=== PATIENT | female | born 1985 | race Caucasian/White ===

== ENCOUNTER 2019-05-03 08:07 | Emergency (ER) | payer OTHER ==
[2019-05-03] MEDS ORDERED: MORPHINE SULFATE 4 MG/ML SYRINGE IVP STA (08:56)
[2019-05-03] MEDS ORDERED: ONDANSETRON 4 MG/2 ML VIAL IVP STA (08:57)
[2019-05-03 09:12] LABS: Basophils # (A) 0.1 k/uL (0-0.2); Basophils % (A) 0 %; Eosinophils # (A) 0.5 k/uL (0-0.7); Eosinophils % (A) 4 %; HCT 43.3 % (34.0-46.0); HGB 14.7 gm/dL (11.4-16.0); Lymphocytes % (A) 13 %; MCH 29.1 pg (25.0-35.0); MCV 85.7 fL (80.0-100.0); Mean Platelet Volume 5.4; Monocytes # (A) 0.5 k/uL (0-1.0); Monocytes % (A) 3 %; Neutrophils # (A) 11.5 k/uL (1.3-7.7); Neutrophils % (A) 79 %; Platelet Count 374 k/uL (150-450); RBC 5.05 m/uL (3.80-5.40); RDW 12.9 % (11.5-15.5); WBC 14.6 k/uL (3.8-10.6)
[2019-05-03 09:20] LABS: ALT 31 U/L (9-52); AST 23 U/L (14-36); African American GFR (CKD) >90 (>60 ml/min/1.73 sqM); Albumin 4.4 g/dL (3.5-5.0); Alkaline Phosphatase 102 U/L (38-126); Amylase <30 U/L (30-110); Anion Gap 8 mmol/L; Blood Urea Nitrogen 15 mg/dL (7-17); Calcium 9.6 mg/dL (8.4-10.2); Carbon Dioxide 28 mmol/L (22-30); Chloride 104 mmol/L (98-107); Glucose 114 mg/dL (74-99); Non-African American GFR(CKD) >90 (>60 ml/min/1.73 sqM); Potassium 3.9 mmol/L (3.5-5.1); Sodium 140 mmol/L (137-145); Total Bilirubin 0.4 mg/dL (0.2-1.3); Total Protein 7.7 g/dL (6.3-8.2)
[2019-05-03 09:42] LABS: Appearance,Urine Cloudy (Clear); Bilirubin,Urine Negative (Negative); Blood,Urine Small (Negative); Color,Urine Yellow; Glucose,Urine (UA) Negative (Negative); Ketones,Urine Negative (Negative); Leukocyte Esterase,Urine Large (Negative); Nitrite,Urine Negative (Negative); Protein,Urine 1+ (Negative); Urobilinogen,Urine <2.0 mg/dL (<2.0)
[2019-05-03 09:53] LABS: RBC,Urine 3 /hpf (0-5); Squamous Epithelial Cell,Urine 1 /hpf (0-4)
[2019-05-03 09:54] LABS: Bacteria,Urine Few /hpf
[2019-05-03 10:05] LABS: Glucose,Whole Blood 112 mg/dL (75-99)
[2019-05-03] MEDS ORDERED: cefTRIAXone IN SWFI 1,000 MG/10 ML SYRINGE IVP STA (10:10)
--- NOTE | 2019-05-03 10:21 | US ---
EXAMINATION TYPE: US transvaginal DATE OF EXAM: 05/03/2019 COMPARISON: NONE CLINICAL HISTORY: hx PCOS, pelvic pain 1 hr prior to arrival.. Patient has PCOS TECHNIQUE: Transvaginal (TV). Date of LMP: 5 months prior EXAM MEASUREMENTS: Uterus: 8.0 x 3.7 x3.9 cm Endometrial Stripe: 0.5 cm Right Ovary: not visualized cm Left Ovary: 2.5 x 1.8 x 1.8 cm Morbidly obese patient. 1. Uterus: Anteverted no significant abnormality 2. Endometrium: wnl 3. Right Ovary: not visualized due to obesity and overlying bowel gas 4. Left Ovary: wnl Spectral, color and waveform doppler imaging shows arterial and venous flow within the left ovary; color flow, vascular waveforms are present. 5. Bilateral Adnexa: hypoechoic irregular shaped area in right adnexa that does not appear to be and ovary, possible bowel? 6. Posterior cul-de-sac: wnl IMPRESSION: Exam is limited. No significant abnormality
--- NOTE | 2019-05-03 11:10 | CT ---
EXAMINATION TYPE: CT abdomen pelvis w con DATE OF EXAM: 05/03/2019 HISTORY: Pelvic pain with nausea CT DLP: 2900mGycm Automated Exposure Control for Dose Reduction was Utilized. CONTRAST: CT scan of the abdomen and pelvis is performed with IV Contrast, patient injected with 100 mL of Isov ue 300. COMPARISON: Pelvic ultrasound of the same date. CT abdomen pelvis dated 08/07/2015 FINDINGS: LUNG BASES: There is a stable 4 mm solid pulmonary nodule in the right middle lobe in comparison to e xam of 2016, likely benign. Minimal subsegmental atelectasis.. LIVER/GB: Diffusely slight hypoattenuated appearance however the liver does not meet criteria for hep atic steatosis at this time. Gallbladder surgically absent. PANCREAS: No significant abnormality is seen. SPLEEN: No significant abnormality is seen. ADRENALS: No significant abnormality is seen. KIDNEYS: Punctate 1 to 2 mm nonobstructing left lower pole renal calculus and 3 mm right midpole nono bstructing calculus. No hydronephrosis of either kidney.. BOWEL: Gastric fundal diverticulum is incidentally seen. Appendix is not clearly identified however n o focal right lower quadrant fat stranding changes are seen. UTERUS/ADNEXA: Trace amount of free fluid in the posterior cul-de-sac, likely physiologic in nature. Follicular changes of the ovaries. LYMPH NODES: No greater than 1cm abdominal or pelvic lymph nodes are appreciated. Few surgical clips in the central mesentery. OSSEOUS STRUCTURES: No significant abnormality is seen. OTHER: Diastases recti is seen. IMPRESSION: 1. No significant acute finding is seen to account for patient's clinical symptoms. 2. Bilateral punctate nonobstructing renal calculi
--- NOTE | 2019-05-03 11:32 | ED ---
Abdominal Pain HPI - General Chief Complaint: Abdominal Pain Stated Complaint: Stomach pain Time Seen by Provider: 05/03/19 08:22 Source: patient Mode of arrival: ambulatory Limitations: no limitations - History of Present Illness Initial Comments: 33-year-old female history of kidney stones and polycystic ovarian disease presents emergency department for chief complaint of diffuse lower abdominal tenderness beginning 1 hour prior to presentation. Patient states one hour prior to presentation she began having crampy abdominal pain in the midline pel maged region. Patient states she does have history of kidney stones however this does not feel similar. She states is usually one side or the other and in the back. Patient denies any unilateral pain she states is diffuse over the lower pelvic region. She denies any diffuse vaginal discharge vaginal orders concern for sexual transmitted diseases or vaginal bleeding. Patient states she is currently trying to get however she has not had a positive test and years she states that she has issues with infertility secondary to her polycystic ovarian disease. Patient denies any fevers diarrhea or vomiting. Denies dysuria urgency frequency. Patient states she does have slight nausea. Patient denies any chest pain shortness of breath or any other complaints. Remaining review systems negative. Upon arrival patient appears nontoxic. - Related Data Home Medications Medication Instructions Recorded Confirmed Pnv,Calcium 72/Iron/Folic Acid 1 tab PO DAILY 10/28/14 05/03/19 [ Plus Tablet] metFORMIN HCL [Glucophage] 500 mg PO BID 07/29/15 05/03/19 Magnesium Gluconate [Magonate] 500 mg PO BID 05/03/19 05/03/19 Vitamin Adk 1 tab PO DAILY 05/03/19 05/03/19 Vitamin B Complex 1 cap PO DAILY 05/03/19 05/03/19 Previous Rx's Medication Instructions Recorded Cephalexin [Keflex] 500 mg PO Q12HR 5 Days #10 cap 05/03/19 Allergies Allergy/AdvReac Type Severity Reaction Status Date / Time No Known Allergies Allergy Verified 05/03/19 09:46 Review of Systems ROS Statement: Those systems with pertinent positive or pertinent negative responses have been documented in the HPI. ROS Other: All systems not noted in ROS Statement are negative. Past Medical History Past Medical History: Asthma, GERD/Reflux, Hypertension Additional Past Medical History / Comment(s): pcos, HTN during History of Any Multi-Drug Resistant Organisms: None Reported Past Surgical History: Appendectomy, Section, Cholecystectomy Past Anesthesia/Blood Transfusion Reactions: No Reported Reaction Past Psychological History: No Psychological Hx Reported Smoking Status: Never smoker Past Alcohol Use History: None Reported Past Drug Use History: None Reported - Past Family History Mother Family Medical History: Seizure Disorder Additional Family Medical History / Comment(s): Grand Mal Seizures, well controlled Father Family Medical History: Diabetes Mellitus, Hyperlipidemia General Exam - General Exam Comments Initial Comments: General: The patient is awake and alert, in no distress Eye: +3 mm pupils are equal, round and reactive to light, extra-ocular movements are intact. No nystagmus. There is normal conjunctiva bilaterally. No signs of icterus. Ears, nose, mouth and throat: There are moist mucous membranes and no oral lesions. Neck: The neck is supple, there is no tenderness or JVD. Cardiovascular: There is a regular rate and rhythm. No murmur, rub or gallop is appreciated. Respiratory: Lungs are clear to auscultation, respirations are non-labored, breath sounds are equal. No wheezes, stridor, rales, or rhonchi. Gastrointestinal: Soft, non-distended, diffuse tenderness that appears mild to the lower pelvic region, no unilateral pain the remaining abdomen is= without masses or organomegaly noted. There is no rebound or guarding present. No CVA tenderness. Bowel sounds are unremarkable. No cervical motion tenderness, scant amount of discharge, os closed. No blood. Mild left sided adnexal tenderness, no right adnexal tenderness. Cervical lesions apprecited. red. Musculoskeletal: Normal ROM, no tenderness. Strength 5/5. Sensation intact. Pulses equal bilaterally 2+. Neurological: A&O x 3. CN II-XII intact grossly, There are no obvious motor or sensory deficits. Coordination appears grossly intact. Speech is normal. Skin: Skin is warm and dry and no rashes or lesions are noted. No LE edema. Psychiatric: Cooperative, appropriate mood & affect, normal judgment. Limitations: no limitations Course Vital Signs 05/03/19 05/03/19 05/03/19 08:16 10:00 10:02 Temperature 97.9 F Pulse Rate 109 H 51 L 55 L Pulse Rate [ Sitting] Pulse Rate [ Standing] Pulse Rate [ Supine] Respiratory 18 18 18 Rate Blood Pressure 164/114 91/59 96/54 Blood Pressure [Right Arm Sitting] Blood Pressure [Right Arm Standing] Blood Pressure [Right Arm Supine] O2 Sat by Pulse 987 H 95 Oximetry 05/03/19 05/03/19 05/03/19 10:05 11:33 12:17 Temperature 98.2 F Pulse Rate 81 94 Pulse Rate [ 100 Sitting] Pulse Rate [ 107 H Standing] Pulse Rate [ 97 Supine] Respiratory 18 18 16 Rate Blood Pressure 136/87 127/99 Blood Pressure 155/105 [Right Arm Sitting] Blood Pressure 166/103 [Right Arm Standing] Blood Pressure 146/99 [Right Arm Supine] O2 Sat by Pulse 98 97 96 Oximetry Medical Decision Making - Medical Decision Making 33-year-old female presented for lower pelvic pain. Minimal pain on pelvic examination mild left adnexal tenderness. Ultrasound revealed normal left ovary. Minimal dental visualization of the right. CT was obtained at this time revealing no evidence of acute process of the reproductive organs or intra- abdominal. Patient's laboratory studies revealed mild leukocytosis and findings consistent with possible urinary tract infection. There is no evidence of ur eterolithiasis. Nephroliathisis was noted. Patient cervical lesiosn discussed and recommendation of PAP. At this time is unclear the cause of patient's lower abdominal pelvic pain. Ddx included rupture of cyst-patient pain was worse earlier now gradually resolving. I discussed imaging studies, laboratory studies history course at the emergency department including nursing notes with the attending who reviewed EKG at this time he is agreeable discharge with outpatient [employer] and primary care follow-up. Patient is agreeable to plan return parameters were discussed she was discharged appearing well. - Lab Data Result diagrams: 05/03/19 08:55 05/03/19 08:55 Lab Results 05/03/19 05/03/19 05/03/19 Range/Units 08:55 08:55 08:55 WBC 14.6 H (3.8-10.6) k/uL RBC 5.05 (3.80-5.40) m/uL Hgb 14.7 (11.4-16.0) gm/dL Hct 43.3 (34.0-46.0) % MCV 85.7 (80.0-100.0) fL MCH 29.1 (25.0-35.0) pg MCHC 34.0 (31.0-37.0) g/dL RDW 12.9 (11.5-15.5) % Plt Count 374 (150-450) k/uL Neutrophils % 79 % Lymphocytes % 13 % Monocytes % 3 % Eosinophils % 4 % Basophils % 0 % Neutrophils # 11.5 H (1.3-7.7) k/uL Lymphocytes # 2.0 (1.0-4.8) k/uL Monocytes # 0.5 (0-1.0) k/uL Eosinophils # 0.5 (0-0.7) k/uL Basophils # 0.1 (0-0.2) k/uL Sodium 140 (137-145) mmol/L Potassium 3.9 (3.5-5.1) mmol/L Chloride 104 (98-107) mmol/L Carbon Dioxide 28 (22-30) mmol/L Anion Gap 8 mmol/L BUN 15 (7-17) mg/dL Creatinine 0.74 (0.52-1.04) mg/dL Est GFR (CKD-EPI)AfAm >90 (>60 ml/min/1.73 sqM) Est GFR (CKD-EPI)NonAf >90 (>60 ml/min/1.73 sqM) Glucose 114 H (74-99) mg/dL POC Glucose (mg/dL) (75-99) mg/dL POC Glu Vehicle Body Builder ID Calcium 9.6 (8.4-10.2) mg/dL Total Bilirubin 0.4 (0.2-1.3) mg/dL AST 23 (14-36) U/L ALT 31 (9-52) U/L Alkaline Phosphatase 102 (38-126) U/L Total Protein 7.7 (6.3-8.2) g/dL Albumin 4.4 (3.5-5.0) g/dL Amylase <30 L (30-110) U/L Lipase 54 (23-300) U/L Urine Color Urine Appearance (Clear) Urine pH (5.0-8.0) Ur Specific [place] (1.001-1.035) Urine Protein (Negative) Urine Glucose (UA) (Negative) Urine Ketones (Negative) Urine Blood (Negative) Urine Nitrite (Negative) Urine Bilirubin (Negative) Urine Urobilinogen (<2.0) mg/dL Ur Leukocyte Esterase (Negative) Urine RBC (0-5) /hpf Urine WBC (0-5) /hpf Ur Squamous Epith Cells (0-4) /hpf Urine Bacteria (None) /hpf Urine HCG, Qual Not Detected (Not Detectd) Trichomonas Ag (Rapid) (Negative) 05/03/19 05/03/19 05/03/19 Range/Units 08:55 10:03 12:23 WBC (3.8-10.6) k/uL RBC (3.80-5.40) m/uL Hgb (11.4-16.0) gm/dL Hct (34.0-46.0) % MCV (80.0-100.0) fL MCH (25.0-35.0) pg MCHC (31.0-37.0) g/dL RDW (11.5-15.5) % Plt Count (150-450) k/uL Neutrophils % % Lymphocytes % % Monocytes % % Eosinophils % % Basophils % % Neutrophils # (1.3-7.7) k/uL Lymphocytes # (1.0-4.8) k/uL Monocytes # (0-1.0) k/uL Eosinophils # (0-0.7) k/uL Basophils # (0-0.2) k/uL Sodium (137-145) mmol/L Potassium (3.5-5.1) mmol/L Chloride (98-107) mmol/L Carbon Dioxide (22-30) mmol/L Anion Gap mmol/L BUN (7-17) mg/dL Creatinine (0.52-1.04) mg/dL Est GFR (CKD-EPI)AfAm (>60 ml/min/1.73 sqM) Est GFR (CKD-EPI)NonAf (>60 ml/min/1.73 sqM) Glucose (74-99) mg/dL POC Glucose (mg/dL) 112 H (75-99) mg/dL POC Glu Vehicle Body Builder ID Toby Velezle Calcium (8.4-10.2) mg/dL Total Bilirubin (0.2-1.3) mg/dL AST (14-36) U/L ALT (9-52) U/L Alkaline Phosphatase (38-126) U/L Total Protein (6.3-8.2) g/dL Albumin (3.5-5.0) g/dL Amylase (30-110) U/L Lipase (23-300) U/L Urine Color Yellow Urine Appearance Cloudy H (Clear) Urine pH 7.0 (5.0-8.0) Ur Specific [place] 1.020 (1.001-1.035) Urine Protein 1+ H (Negative) Urine Glucose (UA) Negative (Negative) Urine Ketones Negative (Negative) Urine Blood Small H (Negative) Urine Nitrite Negative (Negative) Urine Bilirubin Negative (Negative) Urine Urobilinogen <2.0 (<2.0) mg/dL Ur Leukocyte Esterase Large H (Negative) Urine RBC 3 (0-5) /hpf Urine WBC 20 H (0-5) /hpf Ur Squamous Epith Cells 1 (0-4) /hpf Urine Bacteria Few H (None) /hpf Urine HCG, Qual (Not Detectd) Trichomonas Ag (Rapid) Negative (Negative) Disposition Clinical Impression: Pelvic pain, Cervical lesion, UTI (urinary tract infection) Disposition: HOME SELF-CARE Condition: Good Instructions (If sedation given, give patient instructions): Pelvic Pain in Women (ED) Additional Instructions: Please use medication as discussed. Please follow-up with family doctor in the next 2 days as well as OBGYN. Please return to emergency room if the symptoms increase or worsen or for any other concerns. Prescriptions: Cephalexin [Keflex] 500 mg PO Q12HR 5 Days #10 cap Is patient prescribed a controlled substance at d/c from ED?: No Referrals: Hailey Whalen MD [Primary Care Provider] - 1-2 days Time of Disposition: 13:23
[2019-05-03 11:34] VITALS: TEMP 98.2
[2019-05-03 12:19] VITALS: BP 146/99; PULSE 97; RESP 16
[2019-05-03] MEDS ORDERED: KETOROLAC 30 MG/ML 1 ML VIAL IVP STA (12:26)
[2019-05-04 13:46] LABS: C. trachomatis,PCR Negative (Neg,Equiv); Chlamydia trachomatis Source Vagina; N. gonorrhoeae,PCR Negative (Neg,Equiv); Neisseria Source Vagina
== END 2019-05-03 13:53 | disposition home or self-care (01) ==
LOC: EC 08:07
DX: N39.0 Urinary tract infection, site not specified (principal); N88.8 Other specified noninflammatory disorders of cervix uteri; R11.0 Nausea; N20.0 Calculus of kidney; Z87.19 Personal history of other diseases of the digestive system; Z90.49 Acquired absence of other specified parts of digestive tract
CPT/HCPCS: 36415; 93005; 80053; 82150; 83690; 85025; 81001; 81025; 87808; 87491; 87591; 87070; 87086; 93976; 76830; 74177; 99284; 96374; 96375 ×3; J2270; J2405; J0696; J1885; Q9967; 87077; 87186

== ENCOUNTER → 2019-10-06 | Outpatient (CLI) | payer OTHER ==
--- NOTE | 2019-10-06 09:05 | US ---
EXAMINATION TYPE: US pelvic complete DATE OF EXAM: 10/06/2019 COMPARISON: CT 05/03/2019, US 05/03/2019 CLINICAL HISTORY: R10.9 ABD/PELVIC PAIN. PCOS, RLQ pain TECHNIQUE: Transabdominal sonographic images of the pelvis were acquired. Transvaginal sonographic images were medically necessary to better assess the following anatomy: Uterus Date of LMP: 8-10 months ago, patient has irregular cycles EXAM MEASUREMENTS: Uterus: 7.1 x 3.4 x 3.8 cm Endometrial Stripe: 0.4 cm Right Ovary: 3.2 x 1.9 x 2.2 cm Left Ovary: 3.8 x 2.3 x 1.7 cm 1. Uterus: Anteverted 2. Endometrium: wnl 3. Right Ovary: Follicles visualized, wnl 4. Left Ovary: Follicles visualized, wnl 5. Bilateral Adnexa: wnl 6. Posterior cul-de-sac: wnl The largest number of follicles measured within either ovary and a single image is 5-6. Some of the f ollicles do appear peripherally oriented, which can be seen in PCOS. IMPRESSION: Bilateral small ovarian follicles are seen, although the current ultrasound findings are not diagnostic of PCOS some of the follicles do appear peripherally oriented, which can be seen in PC OS.
--- NOTE | 2019-10-06 09:18 | US ---
EXAMINATION TYPE: US kidneys/renal and bladder DATE OF EXAM: 10/06/2019 COMPARISON: CT 05/03/2019 CLINICAL HISTORY: FLANK PAIN R10.9. Difficult exam due to patient body habitus EXAM MEASUREMENTS: Right Kidney: 12.6 x 6.6 x 5.3 cm Left Kidney: 11.8 x 5.3 x 5.3 cm Right Kidney: No hydronephrosis. Echogenic focus visualized measuring 0.5 cm Left Kidney: No hydronephrosis or masses seen Bladder: Not fully distended, wnl as visualized There is no evidence for hydronephrosis at this point in time. No renal masses are identified. The urinary bladder is anechoic suboptimally and incompletely evaluated. IMPRESSION: 1. No hydronephrosis of either kidney. 2. Echogenic focus in the right kidney measures 0.5 cm relating to a nonobstructing calculus. The pun ctate bilateral renal calculi seen on the prior CT of 05/03/2019 may not be seen secondary to their s mall size or patient body habitus alternatively these could have passed in the interim.
== END | disposition home or self-care (01) ==
LOC: RADUSWWP 08:14
PROVIDERS: ATTEND Internal Medicine
DX: N20.0 Calculus of kidney (principal); N83.00 Follicular cyst of ovary, unspecified side
CPT/HCPCS: 76770; 76830; 76856

== ENCOUNTER 2020-02-02 01:27 | Emergency (ER) | payer OTHER ==
[2020-02-02] MEDS ORDERED: HYDROmorphone 0.5 MG/0.5 ML SYRINGE IVP STA ×2 (01:53→03:18)
[2020-02-02] MEDS ORDERED: ONDANSETRON 4 MG/2 ML VIAL IVP STA (01:53)
[2020-02-02] MEDS ORDERED: KETOROLAC 15 MG/ML 1 ML VIAL IVP STA (01:53)
[2020-02-02] MEDS ORDERED: SODIUM CHLORIDE 0.9% 1,000 ML IV STA (01:53)
[2020-02-02 02:20] LABS: Basophils # (A) 0.1 k/uL (0-0.2); Basophils % (A) 0 %; Eosinophils # (A) 0.5 k/uL (0-0.7); Eosinophils % (A) 2 %; HCT 40.4 % (34.0-46.0); Lymphocytes % (A) 9 %; MCH 27.8 pg (25.0-35.0); MCHC 32.2 g/dL (31.0-37.0); MCV 86.4 fL (80.0-100.0); Mean Platelet Volume 6.6; Monocytes # (A) 0.8 k/uL (0-1.0); Monocytes % (A) 3 %; Neutrophils # (A) 18.3 k/uL (1.3-7.7); Neutrophils % (A) 84 %; Platelet Count 361 k/uL (150-450); RBC 4.67 m/uL (3.80-5.40); RDW 13.3 % (11.5-15.5); WBC 21.8 k/uL (3.8-10.6)
[2020-02-02 02:30] LABS: Potassium 4.5 mmol/L (3.5-5.1)
--- NOTE | 2020-02-02 02:30 | XR ---
EXAMINATION TYPE: XR KUB DATE OF EXAM: 02/02/2020 COMPARISON: 07/13/2013 HISTORY: Left flank pain TECHNIQUE: 2 views upright FINDINGS: There is no sign of intestinal obstruction or pneumoperitoneum. There are clips from cholec ystectomy. There is no evidence of a mass. Lung bases are clear. I see no definite pathologic calcifi cations. IMPRESSION: Nonacute abdomen. No adverse change.
[2020-02-02 02:33] LABS: ALT 38 U/L (4-34); AST 36 U/L (14-36); African American GFR (CKD) >90 (>60 ml/min/1.73 sqM); Albumin 4.6 g/dL (3.5-5.0); Alkaline Phosphatase 110 U/L (38-126); Anion Gap 10 mmol/L; Blood Urea Nitrogen 20 mg/dL (7-17); Calcium 10.2 mg/dL (8.4-10.2); Carbon Dioxide 23 mmol/L (22-30); Chloride 102 mmol/L (98-107); Glucose 131 mg/dL (74-99); Non-African American GFR(CKD) >90 (>60 ml/min/1.73 sqM); Sodium 135 mmol/L (137-145); Total Bilirubin 0.4 mg/dL (0.2-1.3); Total Protein 7.6 g/dL (6.3-8.2)
[2020-02-02 02:48] LABS: Appearance,Urine Cloudy (Clear); Bilirubin,Urine Negative (Negative); Blood,Urine Large (Negative); Budding Yeast,Urine Few /hpf; Color,Urine Yellow; Glucose,Urine (UA) Negative (Negative); Hyaline Casts,Urine 1 /lpf (0-2); Ketones,Urine Trace (Negative); Leukocyte Esterase,Urine Trace (Negative); Mucus,Urine Few /hpf; Nitrite,Urine Negative (Negative); PH, Urine 5.5 (5.0-8.0); Protein,Urine 1+ (Negative); RBC,Urine >182 /hpf (0-5); Specific Gravity,Urine 1.019 (1.001-1.035); Squamous Epithelial Cell,Urine <1 /hpf (0-4); Urobilinogen,Urine <2.0 mg/dL (<2.0); WBC,Urine 17 /hpf (0-5)
--- NOTE | 2020-02-02 03:13 | ED ---
Abdominal Pain HPI - General Chief Complaint: Abdominal Pain Stated Complaint: KIDNEY STONE Time Seen by Provider: 02/02/20 01:37 Source: patient Mode of arrival: ambulatory Limitations: no limitations - History of Present Illness Initial Comments: 34-year-old female patient presents to the emergency department today for evaluation of right flank pain. Patient states the pain started suddenly around 5 PM this evening. Patient states does feel similar to a kidney stone which she has had multiple times in the past. Patient states she is usually able to pass them on her own however this one became much more painful than usual. She did have an episode of vomiting due to the pain. She denies fever or chills. Denies any abdominal pain with this. Denies any urinary hesitancy, urgency, frequency, dysuria, or hematuria. She has had cholecystectomy, appendectomy, and in the past. Denies any constipation or diarrhea. Denies any hematochezia, melena, or hematemesis. Patient denies any recent rash, cough, shortness of breath, chest pain, numbness, tingling, dizziness, weakness, headache, visual changes, or any other complaints. - Related Data Home Medications Medication Instructions Recorded Confirmed Pnv,Calcium 72/Iron/Folic Acid 1 tab PO DAILY 10/28/14 05/03/19 [ Plus Tablet] metFORMIN HCL [Glucophage] 500 mg PO BID 07/29/15 05/03/19 Magnesium Gluconate [Magonate] 500 mg PO BID 05/03/19 05/03/19 Vitamin Adk 1 tab PO DAILY 05/03/19 05/03/19 Vitamin B Complex 1 cap PO DAILY 05/03/19 05/03/19 Previous Rx's Medication Instructions Recorded Cephalexin [Keflex] 500 mg PO Q12HR 5 Days #10 cap 05/03/19 Ondansetron [Zofran ODT] 4 mg PO Q8HR PRN #10 tab 02/02/20 Tamsulosin HCl [Flomax] 0.4 mg PO DAILY #7 cap 02/02/20 Allergies Allergy/AdvReac Type Severity Reaction Status Date / Time No Known Allergies Allergy Verified 02/02/20 01:34 Review of Systems ROS Statement: Those systems with pertinent positive or pertinent negative responses have been documented in the HPI. ROS Other: All systems not noted in ROS Statement are negative. Past Medical History Past Medical History: Asthma, GERD/Reflux, Hypertension Additional Past Medical History / Comment(s): pcos, HTN during History of Any Multi-Drug Resistant Organisms: None Reported Past Surgical History: Appendectomy, Section, Cholecystectomy Past Anesthesia/Blood Transfusion Reactions: No Reported Reaction Past Psychological History: No Psychological Hx Reported Smoking Status: Never smoker Past Alcohol Use History: Occasional Past Drug Use History: None Reported - Past Family History Mother Family Medical History: Seizure Disorder Additional Family Medical History / Comment(s): Grand Mal Seizures, well controlled Father Family Medical History: Diabetes Mellitus, Hyperlipidemia General Exam Limitations: no limitations General appearance: alert, in no apparent distress, other (This is a well- developed, well-nourished adult female patient in no acute distress. Vital signs upon presentation are temperature 98.5F, pulse 99, respirations 20, blood pressure 159/107, pulse ox 97% on room air.) Eye exam: Present: normal appearance, PERRL, EOMI. Absent: scleral icterus, conjunctival injection, periorbital swelling ENT exam: Present: normal exam, normal oropharynx, mucous membranes moist Respiratory exam: Present: normal lung sounds bilaterally. Absent: respiratory distress, wheezes, rales, rhonchi, stridor Cardiovascular Exam: Present: regular rate, normal rhythm, normal heart sounds. Absent: systolic murmur, diastolic murmur, rubs, gallop, clicks GI/Abdominal exam: Present: soft, normal bowel sounds. Absent: distended, tenderness, guarding, rebound, rigid Back exam: Present: normal inspection, CVA tenderness (R). Absent: CVA tenderness (L) Neurological exam: Present: alert, oriented X3, CN II-XII intact Psychiatric exam: Present: normal affect, normal mood Skin exam: Present: warm, dry, intact, normal color. Absent: rash Course Vital Signs 02/02/20 01:32 Temperature 98.5 F Pulse Rate 99 Respiratory 20 Rate Blood Pressure 159/107 O2 Sat by Pulse 97 Oximetry Medical Decision Making - Medical Decision Making 34-year-old female patient presents to the emergency department today for evaluation of right flank pain for the last several hours. Patient did have one episode of vomiting. Does have a history of kidney stones and feels that this is similar to her previous episodes. Physical examination reveals mild right CVA tenderness. No abdominal tenderness. She is afebrile normal vital signs. Labs reviewed and reveal elevated white blood cell count at 21.8. She also had mildly elevated BUN. urinalysis shows greater than 182 red blood cells, 17 white blood cells, no bacteria. I did discuss findings and results with the patient. We discussed that her symptoms and lab findings are consistent with kidney stone. We did discuss her elevated white blood cell count, she states this is chronic for her and she does follow with Dr. Moe for this. We did discuss possibility of infected stone though without fever or bacteria in the urine this is unlikely. She is instructed to return immediately if she develops fever, unable to keep down food or fluids, or any other concerning symptoms. She is instructed follow up with her primary care physician and her urologist for further evaluation as soon as possible. She verbalizes understanding and agrees with this plan. - Lab Data Result diagrams: 02/02/20 02:07 02/02/20 02:07 Lab Results 02/02/20 02/02/20 02/02/20 Range/Units 02:07 02:07 02:07 WBC 21.8 H (3.8-10.6) k/uL RBC 4.67 (3.80-5.40) m/uL Hgb 13.0 (11.4-16.0) gm/dL Hct 40.4 (34.0-46.0) % MCV 86.4 (80.0-100.0) fL MCH 27.8 (25.0-35.0) pg MCHC 32.2 (31.0-37.0) g/dL RDW 13.3 (11.5-15.5) % Plt Count 361 (150-450) k/uL Neutrophils % 84 % Lymphocytes % 9 % Monocytes % 3 % Eosinophils % 2 % Basophils % 0 % Neutrophils # 18.3 H (1.3-7.7) k/uL Lymphocytes # 2.0 (1.0-4.8) k/uL Monocytes # 0.8 (0-1.0) k/uL Eosinophils # 0.5 (0-0.7) k/uL Basophils # 0.1 (0-0.2) k/uL Sodium 135 L (137-145) mmol/L Potassium 4.5 (3.5-5.1) mmol/L Chloride 102 (98-107) mmol/L Carbon Dioxide 23 (22-30) mmol/L Anion Gap 10 mmol/L BUN 20 H (7-17) mg/dL Creatinine 0.79 (0.52-1.04) mg/dL Est GFR (CKD-EPI)AfAm >90 (>60 ml/min/1.73 sqM) Est GFR (CKD-EPI)NonAf >90 (>60 ml/min/1.73 sqM) Glucose 131 H (74-99) mg/dL Calcium 10.2 (8.4-10.2) mg/dL Total Bilirubin 0.4 (0.2-1.3) mg/dL AST 36 (14-36) U/L ALT 38 H (4-34) U/L Alkaline Phosphatase 110 (38-126) U/L Total Protein 7.6 (6.3-8.2) g/dL Albumin 4.6 (3.5-5.0) g/dL Lipase 67 (23-300) U/L Urine Color Yellow Urine Appearance Cloudy H (Clear) Urine pH 5.5 (5.0-8.0) Ur Specific [place] 1.019 (1.001-1.035) Urine Protein 1+ H (Negative) Urine Glucose (UA) Negative (Negative) Urine Ketones Trace H (Negative) Urine Blood Large H (Negative) Urine Nitrite Negative (Negative) Urine Bilirubin Negative (Negative) Urine Urobilinogen <2.0 (<2.0) mg/dL Ur Leukocyte Esterase Trace H (Negative) Urine RBC >182 H (0-5) /hpf Urine WBC 17 H (0-5) /hpf Ur Squamous Epith Cells <1 (0-4) /hpf Hyaline Casts 1 (0-2) /lpf Urine Mucus Few H (None) /hpf Urine Yeast (Budding) Few H (None) /hpf Urine HCG, Qual (Not Detectd) 02/02/20 Range/Units 02:07 WBC (3.8-10.6) k/uL RBC (3.80-5.40) m/uL Hgb (11.4-16.0) gm/dL Hct (34.0-46.0) % MCV (80.0-100.0) fL MCH (25.0-35.0) pg MCHC (31.0-37.0) g/dL RDW (11.5-15.5) % Plt Count (150-450) k/uL Neutrophils % % Lymphocytes % % Monocytes % % Eosinophils % % Basophils % % Neutrophils # (1.3-7.7) k/uL Lymphocytes # (1.0-4.8) k/uL Monocytes # (0-1.0) k/uL Eosinophils # (0-0.7) k/uL Basophils # (0-0.2) k/uL Sodium (137-145) mmol/L Potassium (3.5-5.1) mmol/L Chloride (98-107) mmol/L Carbon Dioxide (22-30) mmol/L Anion Gap mmol/L BUN (7-17) mg/dL Creatinine (0.52-1.04) mg/dL Est GFR (CKD-EPI)AfAm (>60 ml/min/1.73 sqM) Est GFR (CKD-EPI)NonAf (>60 ml/min/1.73 sqM) Glucose (74-99) mg/dL Calcium (8.4-10.2) mg/dL Total Bilirubin (0.2-1.3) mg/dL AST (14-36) U/L ALT (4-34) U/L Alkaline Phosphatase (38-126) U/L Total Protein (6.3-8.2) g/dL Albumin (3.5-5.0) g/dL Lipase (23-300) U/L Urine Color Urine Appearance (Clear) Urine pH (5.0-8.0) Ur Specific [place] (1.001-1.035) Urine Protein (Negative) Urine Glucose (UA) (Negative) Urine Ketones (Negative) Urine Blood (Negative) Urine Nitrite (Negative) Urine Bilirubin (Negative) Urine Urobilinogen (<2.0) mg/dL Ur Leukocyte Esterase (Negative) Urine RBC (0-5) /hpf Urine WBC (0-5) /hpf Ur Squamous Epith Cells (0-4) /hpf Hyaline Casts (0-2) /lpf Urine Mucus (None) /hpf Urine Yeast (Budding) (None) /hpf Urine HCG, Qual Not Detected (Not Detectd) - Radiology Data Radiology results: report reviewed, image reviewed KUB x-ray was obtained. Report was reviewed in its entirety. Impression by Dr. Herron shows nonacute abdomen. No adverse change. Disposition Clinical Impression: Right flank pain Disposition: HOME SELF-CARE Condition: Good Instructions (If sedation given, give patient instructions): Kidney Stones (ED), Flank Pain (ED) Additional Instructions: Take medications as directed. Follow-up with your urologist as soon as possible for recheck. Increase fluids and rest. Follow-up through primary care physician for recheck in 1-2 days. Return to the emergency department immediately for any new, worsening, or concerning symptoms. Your White Blood Cell Count was 21.8 in the emergency department...follow up with Dr. Moe regarding this. Prescriptions: Tamsulosin HCl [Flomax] 0.4 mg PO DAILY #7 cap Ondansetron [Zofran ODT] 4 mg PO Q8HR PRN #10 tab PRN Reason: Nausea Is patient prescribed a controlled substance at d/c from ED?: No Referrals: Hailey Whalen MD [Primary Care Provider] - 1-2 days Time of Disposition: 03:20
[2020-02-02] MEDS ORDERED: TAMSULOSIN 0.4 MG CAP.ER.24H PO STA (03:18)
[2020-02-02] MEDS ORDERED: ACET/COD 300 MG/30 MG STARTER PACK 6 TAB BTL PO STA (03:19)
[2020-02-02 08:07] VITALS: BP 135/89; PULSE 93; RESP 18; TEMP 97.8
== END 2020-02-02 04:06 | disposition home or self-care (01) ==
LOC: EC 01:27
DX: R10.9 Unspecified abdominal pain (principal); R11.10 Vomiting, unspecified; R79.89 Other specified abnormal findings of blood chemistry; D72.829 Elevated white blood cell count, unspecified; E28.2 Polycystic ovarian syndrome; Z79.899 Other long term (current) drug therapy; Z79.84 Long term (current) use of oral hypoglycemic drugs; Z90.89 Acquired absence of other organs; Z90.49 Acquired absence of other specified parts of digestive tract; Z87.442 Personal history of urinary calculi
CPT/HCPCS: 36415; 80053; 83690; 85025; 81001; 81025; 87086; 74018; 99284; 96374; 96375 ×2; 96376; 96361; J2405; J1885; J1170

== ENCOUNTER 2020-08-21 10:24 | Inpatient (IN) | payer OTHER ==
[2020-08-21] MEDS ORDERED: ACETAMINOPHEN TAB 500 MG TAB PO STA (11:06)
[2020-08-21 11:18] LABS: Basophils % (A) 0 %; Eosinophils # (A) 0.1 k/uL (0-0.7); Eosinophils % (A) 1 %; HCT 41.4 % (34.0-46.0); HGB 13.5 gm/dL (11.4-16.0); Lymphocytes # (A) 0.6 k/uL (1.0-4.8); Lymphocytes % (A) 6 %; MCH 27.9 pg (25.0-35.0); MCHC 32.6 g/dL (31.0-37.0); MCV 85.6 fL (80.0-100.0); Mean Platelet Volume 6.6; Monocytes # (A) 0.2 k/uL (0-1.0); Monocytes % (A) 2 %; Neutrophils # (A) 8.5 k/uL (1.3-7.7); Neutrophils % (A) 89 %; Platelet Count 217 k/uL (150-450); RBC 4.83 m/uL (3.80-5.40); RDW 13.8 % (11.5-15.5); WBC 9.5 k/uL (3.8-10.6)
--- NOTE | 2020-08-21 11:25 | XR ---
EXAMINATION TYPE: XR chest 1V portable DATE OF EXAM: 08/21/2020 COMPARISON: NONE HISTORY: Cough TECHNIQUE: Single frontal view of the chest is obtained. FINDINGS: There are bilateral patchy areas of infiltrate. Arthropathy of the shoulders. Heart size n ormal. No pleural effusion or pneumothorax. IMPRESSION: Bilateral patchy infiltrate correlate for pneumonia.
[2020-08-21 11:29] LABS: ALT 34 U/L (4-34); AST 34 U/L (14-36); African American GFR (CKD) >90 (>60 ml/min/1.73 sqM); Albumin 4.1 g/dL (3.5-5.0); Alkaline Phosphatase 89 U/L (38-126); Anion Gap 10 mmol/L; Blood Urea Nitrogen 12 mg/dL (7-17); C Reactive Protein 84.5 mg/L (<10.0); Calcium 8.8 mg/dL (8.4-10.2); Carbon Dioxide 26 mmol/L (22-30); Chloride 101 mmol/L (98-107); Glucose 137 mg/dL (74-99); LDH 347 U/L (313-618); Magnesium 1.7 mg/dL (1.6-2.3); Non-African American GFR(CKD) >90 (>60 ml/min/1.73 sqM); Potassium 3.9 mmol/L (3.5-5.1); Sodium 137 mmol/L (137-145); Total Bilirubin 0.3 mg/dL (0.2-1.3); Total Protein 7.1 g/dL (6.3-8.2)
[2020-08-21 11:38] LABS: Partial Thromboplastin Time 26.7 sec (22.0-30.0); Prothrombin Time 10.3 sec (9.0-12.0)
--- NOTE | 2020-08-21 11:59 | ED ---
SOB HPI - General Chief Complaint: Shortness of Breath Stated Complaint: Covid+/sob/cough/pain all over Time Seen by Provider: 08/21/20 10:29 Source: patient Mode of arrival: ambulatory Limitations: no limitations - History of Present Illness Initial Comments: 35-year-old female presents to the emergency department with chief complaint of cough, body aches and shortness of breath. Patient reports about 2 days ago she was diagnosed with coronavirus. Patient reports initially started with otalgia which gradually progressed into a sore throat and then she developed a cough. Patient reports a nonproductive cough. She also reports dyspnea on exertion but denies any chest pain. Patient also reports developing body aches and she is not able to move around much. Patient reports decreased oral intake due to some nausea but denies any vomiting or diarrhea. She also reports a headache. Reports taking [id number] analgesics with some improvement in symptoms. - Related Data Home Medications Medication Instructions Recorded Confirmed Pnv,Calcium 72/Iron/Folic Acid 1 tab PO HS 10/28/14 08/21/20 [ Plus Tablet] metFORMIN HCL [Glucophage] 500 mg PO BID 07/29/15 08/21/20 Cefuroxime Axetil [Ceftin] 500 mg PO BID 08/21/20 08/21/20 Ibuprofen [Motrin Ib] 200 mg PO Q6H PRN 08/21/20 08/21/20 Allergies Allergy/AdvReac Type Severity Reaction Status Date / Time No Known Allergies Allergy Verified 08/21/20 10:46 Review of Systems ROS Statement: Those systems with pertinent positive or pertinent negative responses have been documented in the HPI. ROS Other: All systems not noted in ROS Statement are negative. Past Medical History Past Medical History: Asthma, GERD/Reflux, Hypertension Additional Past Medical History / Comment(s): pcos, HTN during History of Any Multi-Drug Resistant Organisms: None Reported Past Surgical History: Appendectomy, Section, Cholecystectomy Past Anesthesia/Blood Transfusion Reactions: No Reported Reaction Past Psychological History: No Psychological Hx Reported Smoking Status: Never smoker Past Alcohol Use History: Occasional Past Drug Use History: None Reported - Past Family History Mother Family Medical History: Seizure Disorder Additional Family Medical History / Comment(s): Grand Mal Seizures, well con trolled Father Family Medical History: Diabetes Mellitus, Hyperlipidemia General Exam Limitations: no limitations General appearance: alert, in no apparent distress Head exam: Present: atraumatic, normocephalic, normal inspection Eye exam: Present: normal appearance, PERRL, EOMI Pupils: Present: normal accommodation ENT exam: Present: normal exam, normal oropharynx, mucous membranes moist Neck exam: Present: normal inspection, full ROM. Absent: tenderness Respiratory exam: Present: normal lung sounds bilaterally. Absent: respiratory distress Cardiovascular Exam: Present: regular rate, normal rhythm, normal heart sounds Extremities exam: Present: normal inspection, full ROM, normal capillary refill. Absent: tenderness Back exam: Present: normal inspection, full ROM. Absent: tenderness Neurological exam: Present: alert, oriented X3, normal gait Psychiatric exam: Present: normal affect, normal mood Skin exam: Present: warm, dry, intact, normal color Course Vital Signs 08/21/20 08/21/20 08/21/20 10:26 11:40 13:00 Temperature 101.9 F H 99.9 F H Pulse Rate 123 H 106 H 95 Respiratory 18 20 20 Rate Blood Pressure 141/79 133/87 125/76 O2 Sat by Pulse 95 91 L 96 Oximetry Medical Decision Making - Medical Decision Making 35-year-old female presents to emergency Department with a chief complaint of fevers and chills. On physical examination, patient appears to be clear to auscultation. She does feel short of breath. Chest x-ray reveals: Pneumonia. She did have elevated d-dimer and CT chest Amelia performed shows no signs of a PE. Patient is 91% on room air. In laboratory O2 continues to decrease. Patient will be started on Decadron. Patient will be admitted for further medical management. Case discussed with I spoke with Dr Whalen and he will admit Pulmonary on consult - Lab Data Result diagrams: 08/21/20 10:59 08/21/20 10:59 Lab Results 08/21/20 08/21/20 08/21/20 Range/Units 10:59 10:59 10:59 WBC 9.5 (3.8-10.6) k/uL RBC 4.83 (3.80-5.40) m/uL Hgb 13.5 (11.4-16.0) gm/dL Hct 41.4 (34.0-46.0) % MCV 85.6 (80.0-100.0) fL MCH 27.9 (25.0-35.0) pg MCHC 32.6 (31.0-37.0) g/dL RDW 13.8 (11.5-15.5) % Plt Count 217 (150-450) k/uL MPV 6.6 Neutrophils % 89 % Lymphocytes % 6 % Monocytes % 2 % Eosinophils % 1 % Basophils % 0 % Neutrophils # 8.5 H (1.3-7.7) k/uL Lymphocytes # 0.6 L (1.0-4.8) k/uL Monocytes # 0.2 (0-1.0) k/uL Eosinophils # 0.1 (0-0.7) k/uL Basophils # 0.0 (0-0.2) k/uL PT 10.3 (9.0-12.0) sec INR 1.0 (<1.2) APTT 26.7 (22.0-30.0) sec D-Dimer 0.95 H (<0.60) mg/L FEU Sodium 137 (137-145) mmol/L Potassium 3.9 (3.5-5.1) mmol/L Chloride 101 (98-107) mmol/L Carbon Dioxide 26 (22-30) mmol/L Anion Gap 10 mmol/L BUN 12 (7-17) mg/dL Creatinine 0.66 (0.52-1.04) mg/dL Est GFR (CKD-EPI)AfAm >90 (>60 ml/min/1.73 sqM) Est GFR (CKD-EPI)NonAf >90 (>60 ml/min/1.73 sqM) Glucose 137 H (74-99) mg/dL Plasma Lactic Acid Damon (0.7-2.0) mmol/L Calcium 8.8 (8.4-10.2) mg/dL Magnesium 1.7 (1.6-2.3) mg/dL Total Bilirubin 0.3 (0.2-1.3) mg/dL AST 34 (14-36) U/L ALT 34 (4-34) U/L Alkaline Phosphatase 89 (38-126) U/L Lactate Dehydrogenase 347 (313-618) U/L C-Reactive Protein 84.5 H (<10.0) mg/L Total Protein 7.1 (6.3-8.2) g/dL Albumin 4.1 (3.5-5.0) g/dL 08/21/20 Range/Units 10:59 WBC (3.8-10.6) k/uL RBC (3.80-5.40) m/uL Hgb (11.4-16.0) gm/dL Hct (34.0-46.0) % MCV (80.0-100.0) fL MCH (25.0-35.0) pg MCHC (31.0-37.0) g/dL RDW (11.5-15.5) % Plt Count (150-450) k/uL MPV Neutrophils % % Lymphocytes % % Monocytes % % Eosinophils % % Basophils % % Neutrophils # (1.3-7.7) k/uL Lymphocytes # (1.0-4.8) k/uL Monocytes # (0-1.0) k/uL Eosinophils # (0-0.7) k/uL Basophils # (0-0.2) k/uL PT (9.0-12.0) sec INR (<1.2) APTT (22.0-30.0) sec D-Dimer (<0.60) mg/L FEU Sodium (137-145) mmol/L Potassium (3.5-5.1) mmol/L Chloride (98-107) mmol/L Carbon Dioxide (22-30) mmol/L Anion Gap mmol/L BUN (7-17) mg/dL Creatinine (0.52-1.04) mg/dL Est GFR (CKD-EPI)AfAm (>60 ml/min/1.73 sqM) Est GFR (CKD-EPI)NonAf (>60 ml/min/1.73 sqM) Glucose (74-99) mg/dL Plasma Lactic Acid Damon 0.7 (0.7-2.0) mmol/L Calcium (8.4-10.2) mg/dL Magnesium (1.6-2.3) mg/dL Total Bilirubin (0.2-1.3) mg/dL AST (14-36) U/L ALT (4-34) U/L Alkaline Phosphatase (38-126) U/L Lactate Dehydrogenase (313-618) U/L C-Reactive Protein (<10.0) mg/L Total Protein (6.3-8.2) g/dL Albumin (3.5-5.0) g/dL Disposition Clinical Impression: Pneumonia due to COVID-19 virus, Hypoxemia, Fever Disposition: ADMITTED IP TO THIS HOSP Condition: Good Is patient prescribed a controlled substance at d/c from ED?: No Referrals: Hailey Whalen MD [Primary Care Provider] - 1-2 days Time of Disposition: 13:27
[2020-08-21] MEDS ORDERED: ONDANSETRON 4 MG/2 ML VIAL IVP PRN (13:17)
[2020-08-21] MEDS ORDERED: LORazepam 2 MG/ML INJ IV PRN (13:17)
[2020-08-21] MEDS ORDERED: NALOXONE 0.4 MG/ML 1 ML VIAL IV PRN (13:17)
[2020-08-21] MEDS ORDERED: IBUPROFEN 400 MG TAB PO PRN (13:17)
[2020-08-21] MEDS ORDERED: traMADol 50 MG TAB PO PRN (13:17)
[2020-08-21] MEDS ORDERED: PROCHLORPERAZINE 5 MG TAB PO PRN (13:17)
[2020-08-21] MEDS: SODIUM CHLORIDE 0.9% 1,000 ML IV SCH (13:33)
--- NOTE | 2020-08-21 13:36 | CT ---
EXAMINATION TYPE: CT chest angio for PE DATE OF EXAM: 08/21/2020 COMPARISON: Radiograph same day HISTORY: 35-year-old female Covid+, SOB, Cough TECHNIQUE: Contiguous axial scanning of the chest performed with IV Contrast, patient injected with 7 6 mL of Isovue 370. Coronal/sagittal MIP reconstructions performed. CT DLP: 760.4 mGycm Automated exposure control for dose reduction was used. FINDINGS: Heart upper limits of normal in size without pericardial effusion. No flattening of the interventricu lar septum or reflux of contrast into the hepatic veins. Aorta normal caliber. Some scattered borderline sized mediastinal lymph nodes are present measuring up to 1.5 cm in the sub carinal region, 7 mm in the AP window, 8 mm low right paratracheal, and 1 cm right hilar. Additional 9 mm right infrahilar bronchial lymph node. Optimal opacification of the pulmonary arterial system. Further limitation of the exam due to patient breathing during the scan. No definite large central pulmonary embolus. Many of the lobar and remain ing arterial branches are nondiagnostic emboli in these locations cannot be excluded on the basis of this exam. Multifocal peribronchial vascular and peripheral groundglass opacity. Prominent dependent atelectasis . No pleural effusion. Low attenuation of the hepatic parenchyma. Spleen borderline in size at 13.7 cm. Bones: Mild degenerative disc disease throughout. IMPRESSION: 1. SUBOPTIMAL STUDY FOR PULMONARY EMBOLUS DUE TO COMBINATION OF CONTRAST BOLUS LIMITATIONS AND EXTENS OMEGA BREATHING MOTION. NO DEFINITE LARGE CENTRAL PULMONARY EMBOLUS. MANY OF THE LOBAR AND MORE DISTAL ARTERIAL BRANCHES ARE NONDIAGNOSTIC. 2. MULTIFOCAL BILATERAL GROUNDGLASS OPACITIES TYPICAL OF COVID PNEUMONIA. 3. SOME REACTIVE BORDERLINE SIZED MEDIASTINAL AND RIGHT HILAR LYMPHADENOPATHY. 4. SUSPECT HEPATIC STEATOSIS. BORDERLINE SPLEEN AT 13.7 CM.
[2020-08-21] MEDS ORDERED: IBUPROFEN 200 MG TAB PO PRN (15:17)
[2020-08-21] MEDS: DEXAMETHASONE SOD PHOSPHATE 10 MG/ML 1 ML VIAL IV SCH (16:08)
[2020-08-21] MEDS: ENOXAPARIN 40 MG/0.4 ML SYRINGE SQ SCH (16:08)
--- NOTE | 2020-08-21 17:59 | P.CNPUL ---
History of Present Illness Consult date: 08/21/20 Requesting physician: Hailey Whalen Reason for consult: pneumonia Chief complaint: Cough aches and pains and shortness of breath History of present illness: This is a 35-year-old female with 3 days history of nonproductive cough, headaches, shortness of breath, body aches, and earache as well as a bit of a sore throat. 2 days ago, patient was diagnosed with positive PCR for covid 19 infection. Considering her symptoms have been getting worse in spite of [id number] analgesics, and considering that the patient had poor oral intake with some nausea but no vomiting and no diarrhea, patient was evaluated in the ER, chest x-ray showed bilateral peripheral infiltrates. CT of the chest clearly showed multifocal peribronchial and peripheral groundglass opacities. Patient had O2 saturation of 91% on room air, and she had 97% on 2 L. Patient was admitted and this consult was initiated. Review of Systems Constitutional: Fever chills aches and pains. HEENT: Sore throat and ear aches. As well as headaches. Pulmonary: Nonproductive cough and shortness of breath GI: Nausea but no diarrhea and no vomiting. Cardiac: Negative. Genitourinary: Negative. Musculoskeletal: Aches and pains Neurologic: Headaches. Psychiatric: Negative. Hematologic: Negative. Skin: Negative. Endocrine: Negative. Past Medical History Past Medical History: Asthma, GERD/Reflux, Hypertension Additional Past Medical History / Comment(s): pcos, HTN during History of Any Multi-Drug Resistant Organisms: None Reported Past Surgical History: Appendectomy, Section, Cholecystectomy Past Anesthesia/Blood Transfusion Reactions: No Reported Reaction Past Psychological History: No Psychological Hx Reported Smoking Status: Never smoker Past Alcohol Use History: Occasional Past Drug Use History: None Reported - Past Family History Mother Family Medical History: Seizure Disorder Additional Family Medical History / Comment(s): Grand Mal Seizures, well controlled Father Family Medical History: Diabetes Mellitus, Hyperlipidemia Medications and Allergies Home Medications Medication Instructions Recorded Confirmed Type Pnv,Calcium 72/Iron/Folic Acid 1 tab PO HS 10/28/14 08/21/20 History [ Plus Tablet] metFORMIN HCL [Glucophage] 500 mg PO BID 07/29/15 08/21/20 History Cefuroxime Axetil [Ceftin] 500 mg PO BID 08/21/20 08/21/20 History Ibuprofen [Motrin Ib] 200 mg PO Q6H PRN 08/21/20 08/21/20 History Allergies Allergy/AdvReac Type Severity Reaction Status Date / Time No Known Allergies Allergy Verified 08/21/20 10:46 Physical Exam Vitals: Vital Signs Temp Pulse Resp BP Pulse Ox 08/21/20 16:00 87 18 138/92 97 08/21/20 13:00 99.9 F H 95 20 125/76 96 08/21/20 11:40 106 H 20 133/87 91 L 08/21/20 10:26 101.9 F H 123 H 18 141/79 95 Intake and Output 08/21/20 08/21/20 08/21/20 06:59 14:59 22:59 Other: Weight 122.47 kg Physical Exam: Revealed 35-year-old female obese in no distress. Head: Atraumatic, normocephalic. HEENT:[Neck is supple.] [No neck masses.] [No thyromegaly.] [No JVD.] Chest: [Fine crackles at the bases no rhonchi no wheezes. Cardiac Exam: [Normal S1 and S2, no S3 gallop, no murmur.] Abdomen: [Soft, nontender, no megaly, no rebound, no guarding, normal bowel sounds.] Extremities: [No clubbing, no edema, no cyanosis.] Neurological Exam: [No focal neurologic deficit.] Alert and oriented 3. Psychiatric: Normal mood, affect and normal mental status examination. Skin: No rashes. Musculoskeletal: No limitations in range of motion, no deformities. Results - Laboratory Findings CBC and BMP: 08/21/20 10:59 08/21/20 10:59 PT/INR, D-dimer PT 10.3 sec (9.0-12.0) 08/21/20 10:59 INR 1.0 (<1.2) 08/21/20 10:59 D-Dimer 0.95 mg/L FEU (<0.60) H 08/21/20 10:59 Abnormal lab findings: Abnormal Labs 08/21/20 08/21/20 08/21/20 10:59 10:59 10:59 Neutrophils # 8.5 H Lymphocytes # 0.6 L D-Dimer 0.95 H Glucose 137 H C-Reactive Protein 84.5 H Procalcitonin 08/21/20 10:59 Neutrophils # Lymphocytes # D-Dimer Glucose C-Reactive Protein Procalcitonin 0.13 H - Diagnostic Findings Chest x-ray: image reviewed (As noted in HPI. CT of the chest and chest x-ray were both reviewed) CT scan - chest: image reviewed (As noted in HPI.) Assessment and Plan Assessment: Impression: Acute covid 19 pneumonitis. History of bronchial asthma presently stable. Benign essential hypertension. GERD without esophagitis. History of pcos Recommendation: Start patient on remdesivir Continue Decadron. Continue the Covid 19 cocktail. Suggest discontinuing IV antibiotics, pro-calcitonin is not significantly elevated. Continue bronchodilators. Added colchicine. Continue Lovenox empirically. We'll continue to follow. Time with Patient: Greater than 30
[2020-08-21] MEDS ORDERED: REMDESIVIR 200 MG in SODIUM CHLORIDE 0.9% 250 ML IVPB ONE (18:00)
[2020-08-21] MEDS: metFORMIN 500 MG TAB PO SCH ×2 (18:57→23:19)
[2020-08-21] MEDS: ACETAMINOPHEN TAB 325 MG TAB PO PRN (19:05)
[2020-08-21 20:19] LABS: Ferritin 265.1 ng/mL (10.0-291.0)
[2020-08-21] MEDS: MORPHINE SULFATE 4 MG/ML SYRINGE IV PRN (21:10)
[2020-08-21] MEDS: PRENATAL VIT-IRON-FOLIC ACID 1 EACH CAP PO SCH (23:19)
[2020-08-21] MEDS: COLCHICINE 0.6 MG EACH PO SCH (23:19)
[2020-08-22] MEDS: SODIUM CHLORIDE 0.9% 1,000 ML IV SCH ×2 (00:58→16:43)
[2020-08-22] MEDS: ALBUTEROL HFA INHALER INHALATION PRN ×3 (01:00→11:20)
[2020-08-22] MEDS: MORPHINE SULFATE 4 MG/ML SYRINGE IV PRN ×3 (02:29→20:49)
[2020-08-22] MEDS: COLCHICINE 0.6 MG EACH PO SCH ×2 (08:26→20:49)
[2020-08-22] MEDS: DEXAMETHASONE SOD PHOSPHATE 10 MG/ML 1 ML VIAL IV SCH (08:26)
[2020-08-22] MEDS: ENOXAPARIN 40 MG/0.4 ML SYRINGE SQ SCH (08:27)
[2020-08-22] MEDS: metFORMIN 500 MG TAB PO SCH ×2 (08:27→16:43)
[2020-08-22 08:30] LABS: Basophils # (A) 0.01 X 10*3/uL (0.00-0.10); Basophils % (A) 0.1 %; Eosinophils # (A) 0 X 10*3/uL (0.04-0.35); Eosinophils % (A) 0 %; HGB 12.5 g/dL (12.0-15.0); Lymphocytes # (A) 1.05 X 10*3/uL (0.90-5.00); Lymphocytes % (A) 15.2 %; MCH 27.7 pg (27.0-32.0); MCHC 31.3 g/dL (32.0-37.0); MCV 88.7 fL (80.0-97.0); Mean Platelet Volume 9.1 fL (9.5-12.2); Monocytes # (A) 0.22 X 10*3/uL (0.20-1.00); Monocytes % (A) 3.2 %; Neutrophils # (A) 5.59 X 10*3/uL (1.80-7.70); Neutrophils % (A) 81.2 %; Platelet Count 210 X 10*3/uL (140-440); RBC 4.51 X 10*6/uL (4.10-5.20); WBC 6.89 X 10*3/uL (4.50-10.00)
[2020-08-22 09:39] LABS: African American GFR (CKD) 129.2 (60.0-200.0); Albumin/Globulin Ratio 1.82 (1.60-3.17); Anion Gap 7.8 mmol/L (4.00-12.00); BUN/Creat Ratio 17.14 Ratio (12.00-20.00); Calcium 8.3 mg/dL (8.7-10.3); Carbon Dioxide 27.2 mmol/L (21.6-31.8); Globulin 2.2 g/dL (1.6-3.3); Non-African American GFR(CKD) 111.5 (60.0-200.0); Potassium 3.9 mmol/L (3.5-5.5); Total Bilirubin 0.2 mg/dL (0.3-1.2); Total Protein 6.2 g/dL (6.2-8.2)
--- NOTE | 2020-08-22 10:25 | P.HPIM ---
History of Present Illness H&P Date: 08/21/20 Yelitza Adames, 35-year-old female who presented to [facility] emergency room with a chief complaint of cough and shortness of breath, patient was evaluated 2 days ago at [facility] at that time she had a Covid 19 test that was positive, patient is also complaining of right ear pain she was diagnosed with right otitis media and given a course of Ceftin. Patient condition continued to worsen and she decided to come to emergency room for further evaluation. Patient was evaluated in emergency room, vital examination on presentation revealed a temperature of 101.9 pulse 123 respiration 18 and blood pressure 141/79 pulse ox 95% on room air laboratory data revealed a white blood count of 9.5 hemoglobin 13.5 platelet count 217 glucose 137 CO2 reactive protein 84.5 and Procrit serotonin 0.13 d-dimer was 0.95 EKG was done and revealed sinus tachycardia otherwise normal. CT angiogram of the chest revealed bilateral lung infiltrates and no convincing evidence of pulmonary embolism. Patient was admitted to medical floor she was started on IV dexamethasone subcu Lovenox, she was also started on IV Rocephin for right otitis media. Her past medical history is significant for polycystic ovarian syndrome, underlying history of asthma, history of gastroesophageal reflux disease and history of morbid obesity. On review of systems patient is alert and oriented 3 in no apparent distress she is complaining of right ear pain she is complaining of cough and shortness of breath with activity otherwise she denies any complaints there is no fever or chills, patient is complaining of headache, no chest pain no shortness of breath, no nausea or vomiting no abdominal pain no diarrhea no blood in the stools no burning with urination no frequency or urgency and no hematuria Past Medical History Past Medical History: Asthma, GERD/Reflux, Hypertension Additional Past Medical History / Comment(s): pcos, HTN during History of Any Multi-Drug Resistant Organisms: None Reported Past Surgical History: Appendectomy, Section, Cholecystectomy Past Anesthesia/Blood Transfusion Reactions: No Reported Reaction Past Psychological History: No Psychological Hx Reported Smoking Status: Never smoker Past Alcohol Use History: Occasional Past Drug Use History: None Reported - Past Family History Mother Family Medical History: Seizure Disorder Additional Family Medical History / Comment(s): Grand Mal Seizures, well controlled Father Family Medical History: Diabetes Mellitus, Hyperlipidemia Medications and Allergies Home Medications Medication Instructions Recorded Confirmed Type Pnv,Calcium 72/Iron/Folic Acid 1 tab PO HS 10/28/14 08/21/20 History [ Plus Tablet] metFORMIN HCL [Glucophage] 500 mg PO BID 07/29/15 08/21/20 History Cefuroxime Axetil [Ceftin] 500 mg PO BID 08/21/20 08/21/20 History Ibuprofen [Motrin Ib] 200 mg PO Q6H PRN 08/21/20 08/21/20 History Allergies Allergy/AdvReac Type Severity Reaction Status Date / Time No Known Allergies Allergy Verified 08/21/20 10:46 Physical Exam Vitals: Vital Signs Temp Pulse Resp BP Pulse Ox 08/21/20 19:00 104 H 20 143/90 94 L 08/21/20 16:00 87 18 138/92 97 08/21/20 13:00 99.9 F H 95 20 125/76 96 08/21/20 11:40 106 H 20 133/87 91 L 08/21/20 10:26 101.9 F H 123 H 18 141/79 95 Intake and Output 08/21/20 08/21/20 08/21/20 06:59 14:59 22:59 Other: Weight 122.47 kg In general patient is alert and oriented 3 in no apparent distress HEENT head normocephalic and atraumatic Neck is supple no JVD no goiter no lymphadenopathy Chest exam reveals a few scattered rhonchi no wheezing Cardiac exam reveals regular heart sounds no gallops no murmurs Abdomen is soft nontender no organomegaly with normal bowel sounds Extremity exam reveals no edema no cyanosis or clubbing Neurological examination reveals no gross focal deficit Results CBC & Chem 7: 08/21/20 10:59 08/21/20 10:59 Labs: Abnormal Lab Results - Last 24 Hours (Table) 08/21/20 08/21/20 08/21/20 Range/Units 10:59 10:59 10:59 Neutrophils # 8.5 H (1.3-7.7) k/uL Lymphocytes # 0.6 L (1.0-4.8) k/uL D-Dimer 0.95 H (<0.60) mg/L FEU Glucose 137 H (74-99) mg/dL C-Reactive Protein 84.5 H (<10.0) mg/L Procalcitonin (0.02-0.09) ng/mL 08/21/20 Range/Units 10:59 Neutrophils # (1.3-7.7) k/uL Lymphocytes # (1.0-4.8) k/uL D-Dimer (<0.60) mg/L FEU Glucose (74-99) mg/dL C-Reactive Protein (<10.0) mg/L Procalcitonin 0.13 H (0.02-0.09) ng/mL Assessment and Plan Plan: Acute Covid 19 pneumonia Underlying history of asthma no evidence of exacerbation Underlying history of morbid obesity Underlying history of gastroesophageal reflux disease Underlying history of PCOS Recently diagnosed with right otitis media patient is still complaining of right ear pain and she will be given IV Rocephin Hyperglycemia with check hemoglobin A1c Patient was started on IV dexamethasone and subcu Lovenox Pulmonary consultation was requested Will check labs and follow-up in the
[2020-08-22 12:03] LABS: Glucose,Whole Blood 139 mg/dL (75-99)
--- NOTE | 2020-08-22 14:35 | P.PN ---
Subjective Progress Note Date: 08/22/20 Principal diagnosis: COVID 19 pneumonitis This is a 35-year-old female with 3 days history of nonproductive cough, headaches, shortness of breath, body aches, and earache as well as a bit of a sore throat. 2 days ago, patient was diagnosed with positive PCR for covid 19 infection. Considering her symptoms have been getting worse in spite of [id number] analgesics, and considering that the patient had poor oral intake with some nausea but no vomiting and no diarrhea, patient was evaluated in the ER, chest x-ray showed bilateral peripheral infiltrates. CT of the chest clearly showed multifocal peribronchial and peripheral groundglass opacities. Patient had O2 saturation of 91% on room air, and she had 97% on 2 L. Patient was admitted and this consult was initiated. On 08/22/2020 patient seen in follow-up on medical surgical floor, she is feeling better, breathing easier, occasional cough, no couplets or chest pain, currently on room air, pulse ox is 94%, no fever or chills, today is day 2 of Remdesivir, she continues on Decadron, she is on IV fluids at 75 ML per hour, and Rocephin was added for right ear pain and possibility of otitis media. No nausea vomiting or diarrhea. It is labs have been reviewed, d-dimer 0.95, LDH was 347 and CRP was 84 Objective - Vital Signs Vital signs: Vital Signs Temp 98.4 F 08/22/20 10:00 Pulse 101 H 08/22/20 10:00 Resp 16 08/22/20 10:00 BP 151/94 08/22/20 10:00 Pulse Ox 94 L 08/22/20 10:00 Intake & Output 08/21/20 08/22/20 08/22/20 18:59 06:59 18:59 Weight 122.47 kg 122.47 kg Other: # Voids 1 - Exam GENERAL EXAM: Alert, very pleasant, 35-year-old obese white female, on room air, pulse ox is 94% very pleasant comfortable in no apparent distress. HEAD: Normocephalic/atraumatic. EYES: Normal reaction of pupils, equal size. Conjunctiva pink, sclera white. NOSE: Clear with pink turbinates. THROAT: No erythema or exudates. NECK: No masses, no JVD, no thyroid enlargement, no adenopathy. CHEST: No chest wall deformity. Symmetrical expansion. LUNGS: Equal air entry with no crackles, wheeze, rhonchi or dullness. CVS: Regular rate and rhythm, normal S1 and S2, no gallops, no murmurs, no rubs ABDOMEN: Soft, nontender. No hepatosplenomegaly, normal bowel sounds, no guarding or rigidity. EXTREMITIES: No clubbing, no edema, no cyanosis, 2+ pulses and upper and lower extremities. MUSCULOSKELETAL: Muscle strength and tone normal. SPINE: No scoliosis or deformity SKIN: No rashes CENTRAL NERVOUS SYSTEM: Alert and oriented -3. No focal deficits, tone is normal in all 4 extremities. PSYCHIATRIC: Alert and oriented -3. Appropriate affect. Intact judgment and insight. - Labs CBC & Chem 7: 08/22/20 06:03 08/22/20 06:03 Labs: Abnormal Lab Results - Last 24 Hours (Table) 08/21/20 08/22/20 08/22/20 Range/Units 10:59 06:03 06:03 MCHC 31.3 L (32.0-37.0) g/dL MPV 9.1 L (9.5-12.2) fL Eosinophils # 0 L (0.04-0.35) X 10*3/uL Glucose 123 H (70-110) mg/dL POC Glucose (mg/dL) (75-99) mg/dL Calcium 8.3 L (8.7-10.3) mg/dL Total Bilirubin 0.2 L (0.3-1.2) mg/dL AST 36 H (13-35) U/L Procalcitonin 0.13 H (0.02-0.09) ng/mL 08/22/20 Range/Units 12:02 MCHC (32.0-37.0) g/dL MPV (9.5-12.2) fL Eosinophils # (0.04-0.35) X 10*3/uL Glucose (70-110) mg/dL POC Glucose (mg/dL) 139 H (75-99) mg/dL Calcium (8.7-10.3) mg/dL Total Bilirubin (0.3-1.2) mg/dL AST (13-35) U/L Procalcitonin (0.02-0.09) ng/mL Microbiology - Last 24 Hours (Table) 08/21/20 11:19 Blood Culture - Preliminary Blood No Growth after 24 hours 08/21/20 10:59 Blood Culture - Preliminary Blood No Growth after 24 hours Assessment and Plan Plan: Assessment: #1. 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 Acute hypoxic respiratory failure related to the above #3. History of mild intermittent bronchial asthma #4. Benign essential hypertension #5. GERD/reflux #6. Morbid obesity #7. History of PCOS #8. Right ear pain related to possibility of a right otitis media Plan: Continue Remdesivir, patient is on day 2 of treatment, continue current dose Decadron, continue prophylactic Lovenox, continue multivitamins. Continue bronchodilators, clinically patient is improving, she continues on colchicine as well. She is complaining of some right ear pain and Rocephin was added for possibility of right otitis media. We will continue to follow and monitor her course and make recommendations accordingly I performed a history & physical examination of the patient and discussed their management with my nurse practitioner, Frannie Watt. I reviewed the nurse practitioner's note and agree with the documented findings and plan of care. Lung sounds are positive for diminished breath sounds. The findings and the impression was discussed with the patient. I attest to the documentation by the nurse practitioner. Time with Patient: Less than 30
[2020-08-22] MEDS: REMDESIVIR 100 MG in SODIUM CHLORIDE 0.9% 250 ML IVPB SCH (16:43)
--- NOTE | 2020-08-22 19:17 | P.PN ---
Subjective Progress Note Date: 08/22/20 Yelitza Adames, 35-year-old female who presented to [facility] emergency room with a chief complaint of cough and shortness of breath, patient was evaluated [address] [facility] at that time she had a Covid 19 test that was positive, patient is also complaining of right ear pain she was diagnosed with right otitis media and given a course of Ceftin. Patient condition continued to worsen and she decided to come to emergency room for further evaluation. Patient was evaluated in emergency room, vital examination on presentation revealed a temperature of 101.9 pulse 123 respiration 18 and blood pressure 141/79 pulse ox 95% on room air laboratory data revealed a white blood count of 9.5 hemoglobin 13.5 platelet count 217 glucose 137 CO2 reactive protein 84.5 and Procrit serotonin 0.13 d-dimer was 0.95 EKG was done and revealed sinus tachycardia otherwise normal. CT angiogram of the chest revealed bilateral lung infiltrates and no convincing evidence of pulmonary embolism. Patient was admitted to medical floor she was started on IV dexamethasone subcu Lovenox, she was also started on IV Rocephin for right otitis media. Her past medical history is significant for polycystic ovarian syndrome, underlying history of asthma, history of gastroesophageal reflux disease and history of morbid obesity. On review of systems patient is alert and oriented 3 in no apparent distress she is complaining of right ear pain she is complaining of cough and shortness of breath with activity otherwise she denies any complaints there is no fever or chills, patient is complaining of headache, no chest pain no shortness of breath, no nausea or vomiting no abdominal pain no diarrhea no blood in the stools no burning with urination no frequency or urgency and no hematuria On 08/22/2020 patient was seen and examined on the medical floor she is alert and oriented 3 in no apparent distress she is feeling better, cough and shortness of breath has improved, there is no fever or chills no headache or dizziness no chest pain no nausea or vomiting no abdominal pain no diarrhea no blood in the stools no burning with urination no frequency or urgency and no hematuria Objective - Vital Signs Vital signs: Vital Signs Temp 98.6 F 08/22/20 05:35 Pulse 96 08/22/20 05:35 Resp 16 08/22/20 05:35 BP 153/92 08/22/20 05:35 Pulse Ox 95 08/22/20 07:15 Intake & Output 08/21/20 08/22/20 08/22/20 18:59 06:59 18:59 Weight 122.47 kg 122.47 kg Other: # Voids 1 - Exam In general patient is alert and oriented 3 in no apparent distress HEENT head normocephalic and atraumatic Neck is supple no JVD no goiter no lymphadenopathy Chest exam reveals a few scattered rhonchi no wheezing Cardiac exam reveals regular heart sounds no gallops no murmurs Abdomen is soft nontender no organomegaly with normal bowel sounds Extremity exam reveals no edema no cyanosis or clubbing Neurological examination reveals no gross focal deficit - Labs CBC & Chem 7: 08/22/20 06:03 08/22/20 06:03 Labs: Abnormal Lab Results - Last 24 Hours (Table) 08/21/20 08/21/20 08/21/20 Range/Units 10:59 10:59 10:59 MCHC (32.0-37.0) g/dL MPV (9.5-12.2) fL Neutrophils # 8.5 H (1.3-7.7) k/uL Lymphocytes # 0.6 L (1.0-4.8) k/uL Eosinophils # (0.04-0.35) X 10*3/uL D-Dimer 0.95 H (<0.60) mg/L FEU Glucose 137 H (74-99) mg/dL Calcium (8.7-10.3) mg/dL Total Bilirubin (0.3-1.2) mg/dL AST (13-35) U/L C-Reactive Protein 84.5 H (<10.0) mg/L Procalcitonin (0.02-0.09) ng/mL 08/21/20 08/22/20 08/22/20 Range/Units 10:59 06:03 06:03 MCHC 31.3 L (32.0-37.0) g/dL MPV 9.1 L (9.5-12.2) fL Neutrophils # (1.3-7.7) k/uL Lymphocytes # (1.0-4.8) k/uL Eosinophils # 0 L (0.04-0.35) X 10*3/uL D-Dimer (<0.60) mg/L FEU Glucose 123 H (74-99) mg/dL Calcium 8.3 L (8.7-10.3) mg/dL Total Bilirubin 0.2 L (0.3-1.2) mg/dL AST 36 H (13-35) U/L C-Reactive Protein (<10.0) mg/L Procalcitonin 0.13 H (0.02-0.09) ng/mL Assessment and Plan Plan: Acute Covid 19 pneumonia Underlying history of asthma no evidence of exacerbation Underlying history of morbid obesity Underlying history of gastroesophageal reflux disease Underlying history of PCOS Recently diagnosed with right otitis media patient is still complaining of right ear pain and she will be given IV Rocephin Hyperglycemia with check hemoglobin A1c Patient was started on IV dexamethasone and subcu Lovenox Pulmonary consultation was requested, patient was started on IV Remdesevir today is day #2 Will check labs and follow-up in am
[2020-08-22] MEDS: PRENATAL VIT-IRON-FOLIC ACID 1 EACH CAP PO SCH (20:49)
[2020-08-23] MEDS: MORPHINE SULFATE 4 MG/ML SYRINGE IV PRN (04:21)
[2020-08-23] MEDS: SODIUM CHLORIDE 0.9% 1,000 ML IV SCH ×2 (06:29→17:59)
[2020-08-23] MEDS: metFORMIN 500 MG TAB PO SCH ×2 (07:47→17:36)
[2020-08-23] MEDS: ENOXAPARIN 40 MG/0.4 ML SYRINGE SQ SCH (07:47)
[2020-08-23] MEDS: amLODIPine 5 MG TAB PO SCH (07:48)
[2020-08-23] MEDS: COLCHICINE 0.6 MG EACH PO SCH ×2 (07:48→21:36)
[2020-08-23] MEDS: DEXAMETHASONE SOD PHOSPHATE 10 MG/ML 1 ML VIAL IV SCH (07:49)
[2020-08-23] MEDS: ALBUTEROL HFA INHALER INHALATION PRN (08:09)
[2020-08-23] MEDS: HYDROmorphone 0.5 MG/0.5 ML SYRINGE IVP PRN ×2 (08:22→23:26)
[2020-08-23 10:52] LABS: African American GFR (CKD) 129.2 (60.0-200.0); Albumin 3.9 g/dL (3.80-4.90); Albumin/Globulin Ratio 1.86 (1.60-3.17); Anion Gap 7.7 mmol/L (4.00-12.00); BUN/Creat Ratio 22.86 Ratio (12.00-20.00); Calcium 8.4 mg/dL (8.7-10.3); Carbon Dioxide 28.3 mmol/L (21.6-31.8); Globulin 2.1 g/dL (1.6-3.3); Non-African American GFR(CKD) 111.5 (60.0-200.0); Potassium 4.2 mmol/L (3.5-5.5); Total Bilirubin 0.2 mg/dL (0.2-1.2)
[2020-08-23 11:26] LABS: Basophils # (A) 0.01 X 10*3/uL (0.00-0.10); Basophils % (A) 0.1 %; Eosinophils # (A) 0 X 10*3/uL (0.04-0.35); Eosinophils % (A) 0 %; HCT 42.1 % (37.2-46.3); HGB 12.7 g/dL (12.0-15.0); Lymphocytes # (A) 1.82 X 10*3/uL (0.90-5.00); Lymphocytes % (A) 20.1 %; MCH 27.4 pg (27.0-32.0); MCHC 30.2 g/dL (32.0-37.0); MCV 90.9 fL (80.0-97.0); Mean Platelet Volume 9.1 fL (9.5-12.2); Monocytes # (A) 0.56 X 10*3/uL (0.20-1.00); Monocytes % (A) 6.2 %; Neutrophils # (A) 6.61 X 10*3/uL (1.80-7.70); Neutrophils % (A) 72.9 %; Platelet Count 231 X 10*3/uL (140-440); RBC 4.63 X 10*6/uL (4.10-5.20); RDW 14.3 % (11.5-14.5); WBC 9.06 X 10*3/uL (4.50-10.00)
[2020-08-23] MEDS: ACETAMINOPHEN TAB 325 MG TAB PO PRN (14:10)
--- NOTE | 2020-08-23 14:41 | P.PN ---
Subjective Progress Note Date: 08/23/20 Principal diagnosis: COVID 19 pneumonitis This is a 35-year-old female with 3 days history of nonproductive cough, headaches, shortness of breath, body aches, and earache as well as a bit of a sore throat. 2 days ago, patient was diagnosed with positive PCR for covid 19 infection. Considering her symptoms have been getting worse in spite of [id number] analgesics, and considering that the patient had poor oral intake with some nausea but no vomiting and no diarrhea, patient was evaluated in the ER, chest x-ray showed bilateral peripheral infiltrates. CT of the chest clearly showed multifocal peribronchial and peripheral groundglass opacities. Patient had O2 saturation of 91% on room air, and she had 97% on 2 L. Patient was admitted and this consult was initiated. On 08/22/2020 patient seen in follow-up on medical surgical floor, she is feeling better, breathing easier, occasional cough, no couplets or chest pain, currently on room air, pulse ox is 94%, no fever or chills, today is day 2 of Remdesivir, she continues on Decadron, she is on IV fluids at 75 ML per hour, and Rocephin was added for right ear pain and possibility of otitis media. No nausea vomiting or diarrhea. It is labs have been reviewed, d-dimer 0.95, LDH was 347 and CRP was 84 On 08/23/2020 patient seen in follow-up on medical surgical floor, doing well, breathing easier, however still requiring oxygen, at 2 L, her pulse ox between 91-92%, low-grade fever with T-max of 99.7F overnight, afebrile this morning, no chest discomfort or chest tightness, patient is on day 3 of Remdesivir treatment, she remains Decadron, prophylactic Lovenox, and prophylactic Rocephin for right otitis media. No acute events overnight. Patient is tolerating ambulation patient got up to take a shower today. Today's labs have been reviewed, lymphocyte count has improved and is up to 1.8 to, electrolytes and renal profile are unremarkable. Objective - Vital Signs Vital signs: Vital Signs Temp 98.9 F 08/23/20 10:00 Pulse 96 08/23/20 10:00 Resp 16 08/23/20 10:00 BP 138/86 08/23/20 10:00 Pulse Ox 91 L 08/23/20 10:00 Intake & Output 08/22/20 08/23/20 08/23/20 18:59 06:59 18:59 Intake Total 200 Balance 200 Intake: Oral 200 Other: Voiding Method Toilet Toilet # Voids 3 2 - Exam GENERAL EXAM: Alert, very pleasant, 35-year-old obese white female, on room air, pulse ox is 94% very pleasant comfortable in no apparent distress. HEAD: Normocephalic/atraumatic. EYES: Normal reaction of pupils, equal size. Conjunctiva pink, sclera white. NOSE: Clear with pink turbinates. THROAT: No erythema or exudates. NECK: No masses, no JVD, no thyroid enlargement, no adenopathy. CHEST: No chest wall deformity. Symmetrical expansion. LUNGS: Equal air entry with no crackles, wheeze, rhonchi or dullness. CVS: Regular rate and rhythm, normal S1 and S2, no gallops, no murmurs, no rubs ABDOMEN: Soft, nontender. No hepatosplenomegaly, normal bowel sounds, no guarding or rigidity. EXTREMITIES: No clubbing, no edema, no cyanosis, 2+ pulses and upper and lower extremities. MUSCULOSKELETAL: Muscle strength and tone normal. SPINE: No scoliosis or deformity SKIN: No rashes CENTRAL NERVOUS SYSTEM: Alert and oriented -3. No focal deficits, tone is normal in all 4 extremities. PSYCHIATRIC: Alert and oriented -3. Appropriate affect. Intact judgment and insight. - Labs CBC & Chem 7: 08/23/20 06:59 08/23/20 06:59 Labs: Abnormal Lab Results - Last 24 Hours (Table) 08/23/20 08/23/20 Range/Units 06:59 06:59 MCHC 30.2 L (32.0-37.0) g/dL MPV 9.1 L (9.5-12.2) fL Immature Gran # 0.06 H (0.00-0.04) X 10*3/uL Eosinophils # 0 L (0.04-0.35) X 10*3/uL BUN/Creatinine Ratio 22.86 H (12.00-20.00) Ratio Calcium 8.4 L (8.7-10.3) mg/dL AST 40 H (13-35) U/L Total Protein 6.0 L (6.2-8.2) g/dL Microbiology - Last 24 Hours (Table) 08/21/20 11:19 Blood Culture - Preliminary Blood No Growth after 48 hours 08/21/20 10:59 Blood Culture - Preliminary Blood No Growth after 48 hours Assessment and Plan Plan: Assessment: #1. 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 Acute hypoxic respiratory failure related to the above #3. History of mild intermittent bronchial asthma #4. Benign essential hypertension #5. GERD/reflux #6. Morbid obesity #7. History of PCOS #8. Right ear pain related to possibility of a right otitis media Plan: Continue Remdesivir, patient is on day 3 of treatment, continue current dose Decadron, continue prophylactic Lovenox, continue multivitamins. Patient is feeling better, no worsening dyspnea, still requiring oxygen, increase activity as tolerated, will consider for discharge home once completes the Remdesivir and remaine stable I performed a history & physical examination of the patient and discussed their management with my nurse practitioner, Frannie Watt. I reviewed the nurse practitioner's note and agree with the documented findings and plan of care. Lung sounds are positive for diminished breath sounds. The findings and the impression was discussed with the patient. I attest to the documentation by the nurse practitioner. Time with Patient: Less than 30
--- NOTE | 2020-08-23 14:53 | P.PN ---
Subjective Progress Note Date: 08/23/20 Yelitza Adames, 35-year-old female who presented to [facility] emergency room with a chief complaint of cough and shortness of breath, patient was evaluated 2 days ago at [facility] at that time she had a Covid 19 test that was positive, patient is also complaining of right ear pain she was diagnosed with right otitis media and given a course of Ceftin. Patient condition continued to worsen and she decided to come to emergency room for further evaluation. Patient was evaluated in emergency room, vital examination on presentation revealed a temperature of 101.9 pulse 123 respiration 18 and blood pressure 141/79 pulse ox 95% on room air laboratory data revealed a white blood count of 9.5 hemoglobin 13.5 platelet count 217 glucose 137 CO2 reactive protein 84.5 and Procrit serotonin 0.13 d-dimer was 0.95 EKG was done and revealed sinus tachycardia otherwise normal. CT angiogram of the chest revealed bilateral lung infiltrates and no convincing evidence of pulmonary embolism. Patient was admitted to medical floor she was started on IV dexamethasone subcu Lovenox, she was also started on IV Rocephin for right otitis media. Her past medical history is significant for polycystic ovarian syndrome, underlying history of asthma, history of gastroesophageal reflux disease and history of morbid obesity. On review of systems patient is alert and oriented 3 in no apparent distress she is complaining of right ear pain she is complaining of cough and shortness of breath with activity otherwise she denies any complaints there is no fever or chills, patient is complaining of headache, no chest pain no shortness of breath, no nausea or vomiting no abdominal pain no diarrhea no blood in the stools no burning with urination no frequency or urgency and no hematuria On 08/22/2020 patient was seen and examined on the medical floor she is alert and oriented 3 in no apparent distress she is feeling better, cough and shortness of breath has improved, there is no fever or chills no headache or dizziness no chest pain no nausea or vomiting no abdominal pain no diarrhea no blood in the stools no burning with urination no frequency or urgency and no hematuria. On 08/23/2020 patient was seen and examined on the medical floor she is alert and oriented 3 in no distress she is complaining of occasional cough and shortness of breath with activity otherwise she denies any complaints there is no fever or chills no headache or dizziness no chest pain no palpitation no n ausea or vomiting no abdominal pain no diarrhea no blood in the stools no burning with urination no frequency or urgency no hematuria Objective - Vital Signs Vital signs: Vital Signs Temp 98.9 F 08/23/20 05:48 Pulse 112 H 08/23/20 05:48 Resp 18 08/23/20 05:48 BP 149/83 08/23/20 05:48 Pulse Ox 92 L 08/23/20 05:48 Intake & Output 08/22/20 08/23/20 08/23/20 18:59 06:59 18:59 Other: Voiding Method Toilet # Voids 3 2 - Exam In general patient is alert and oriented 3 in no apparent distress HEENT head normocephalic and atraumatic Neck is supple no JVD no goiter no lymphadenopathy Chest exam reveals a few scattered rhonchi no wheezing Cardiac exam reveals regular heart sounds no gallops no murmurs Abdomen is soft nontender no organomegaly with normal bowel sounds Extremity exam reveals no edema no cyanosis or clubbing Neurological examination reveals no gross focal deficit - Labs CBC & Chem 7: 08/23/20 06:59 08/23/20 06:59 Labs: Abnormal Lab Results - Last 24 Hours (Table) 08/22/20 Range/Units 12:02 POC Glucose (mg/dL) 139 H (75-99) mg/dL Microbiology - Last 24 Hours (Table) 08/21/20 11:19 Blood Culture - Preliminary Blood No Growth after 24 hours 08/21/20 10:59 Blood Culture - Preliminary Blood No Growth after 24 hours Assessment and Plan Plan: Acute Covid 19 pneumonia Underlying history of asthma no evidence of exacerbation Underlying history of morbid obesity Underlying history of gastroesophageal reflux disease Underlying history of PCOS Recently diagnosed with right otitis media patient is still complaining of right ear pain and she will be given IV Rocephin Hyperglycemia with check hemoglobin A1c Patient was started on IV dexamethasone and subcu Lovenox Pulmonary consultation was requested, patient was started on IV Remdesevir today is day #2 Will check labs and follow-up in am
[2020-08-23] MEDS: REMDESIVIR 100 MG in SODIUM CHLORIDE 0.9% 250 ML IVPB SCH (17:36)
[2020-08-23] MEDS: PRENATAL VIT-IRON-FOLIC ACID 1 EACH CAP PO SCH (21:36)
[2020-08-24] MEDS: HYDROmorphone 0.5 MG/0.5 ML SYRINGE IVP PRN ×3 (05:46→21:13)
[2020-08-24] MEDS: COLCHICINE 0.6 MG EACH PO SCH ×2 (07:35→21:13)
[2020-08-24] MEDS: DEXAMETHASONE SOD PHOSPHATE 10 MG/ML 1 ML VIAL IV SCH (07:35)
[2020-08-24] MEDS: metFORMIN 500 MG TAB PO SCH ×2 (07:35→17:41)
[2020-08-24] MEDS: amLODIPine 5 MG TAB PO SCH (07:35)
[2020-08-24] MEDS: ENOXAPARIN 40 MG/0.4 ML SYRINGE SQ SCH (07:36)
[2020-08-24] MEDS: SODIUM CHLORIDE 0.9% 1,000 ML IV SCH ×2 (07:37→21:22)
[2020-08-24] MEDS: ALBUTEROL HFA INHALER INHALATION PRN ×2 (08:39→17:21)
[2020-08-24 11:34] LABS: Basophils # (A) 0.03 X 10*3/uL (0.00-0.10); Basophils % (A) 0.3 %; Eosinophils # (A) 0.01 X 10*3/uL (0.04-0.35); Eosinophils % (A) 0.1 %; HCT 42.3 % (37.2-46.3); HGB 13.1 g/dL (12.0-15.0); Lymphocytes # (A) 2.34 X 10*3/uL (0.90-5.00); MCH 27.8 pg (27.0-32.0); MCV 89.8 fL (80.0-97.0); Mean Platelet Volume 9.1 fL (9.5-12.2); Monocytes # (A) 0.71 X 10*3/uL (0.20-1.00); Monocytes % (A) 7.9 %; Neutrophils % (A) 64.5 %; Platelet Count 254 X 10*3/uL (140-440); RBC 4.71 X 10*6/uL (4.10-5.20); RDW 14.1 % (11.5-14.5)
[2020-08-24 11:41] LABS: African American GFR (CKD) 144.3 (60.0-200.0); Albumin 3.9 g/dL (3.80-4.90); Albumin/Globulin Ratio 1.77 (1.60-3.17); Anion Gap 9.9 mmol/L (4.00-12.00); Calcium 8.4 mg/dL (8.7-10.3); Carbon Dioxide 26.1 mmol/L (21.6-31.8); Globulin 2.2 g/dL (1.6-3.3); Non-African American GFR(CKD) 124.5 (60.0-200.0); Potassium 3.9 mmol/L (3.5-5.5); Total Bilirubin 0.3 mg/dL (0.2-1.2); Total Protein 6.1 g/dL (6.2-8.2)
--- NOTE | 2020-08-24 13:51 | P.PN ---
Subjective Progress Note Date: 08/24/20 Principal diagnosis: Acute CoVID 19 pneumonitis This is a 35-year-old female with 3 days history of nonproductive cough, headaches, shortness of breath, body aches, and earache as well as a bit of a sore throat. 2 days ago, patient was diagnosed with positive PCR for covid 19 infection. Considering her symptoms have been getting worse in spite of [id number] analgesics, and considering that the patient had poor oral intake with some nausea but no vomiting and no diarrhea, patient was evaluated in the ER, chest x-ray showed bilateral peripheral infiltrates. CT of the chest clearly showed multifocal peribronchial and peripheral groundglass opacities. Patient had O2 saturation of 91% on room air, and she had 97% on 2 L. Patient was admitted and this consult was initiated. On 08/22/2020 patient seen in follow-up on medical surgical floor, she is feeling better, breathing easier, occasional cough, no couplets or chest pain, currently on room air, pulse ox is 94%, no fever or chills, today is day 2 of Remdesivir, she continues on Decadron, she is on IV fluids at 75 ML per hour, and Rocephin was added for right ear pain and possibility of otitis media. No nausea vomiting or diarrhea. It is labs have been reviewed, d-dimer 0.95, LDH was 347 and CRP was 84 On 08/23/2020 patient seen in follow-up on medical surgical floor, doing well, breathing easier, however still requiring oxygen, at 2 L, her pulse ox between 91-92%, low-grade fever with T-max of 99.7F overnight, afebrile this morning, no chest discomfort or chest tightness, patient is on day 3 of Remdesivir treatment, she remains Decadron, prophylactic Lovenox, and prophylactic Rocephin for right otitis media. No acute events overnight. Patient is tolerating ambulation patient got up to take a shower today. Today's labs have been reviewed, lymphocyte count has improved and is up to 1.8 to, electrolytes and renal profile are unremarkable. The patient is seen today 08/24/2020 and follow-up on the regular medical floor. Currently sitting up in bed. Awake and alert in no acute distress. Maintaining O2 saturation in the 90s on 2 L/m per nasal cannula. 88% on room air. Currently afebrile. Blood cultures reveal no growth. White count 9.0. Hemoglobin 13.1. Sodium 141. Potassium 3.9. Creatinine 0.5. Remains on dexamethasone,: Lionel, Lovenox, vitamin supplements. Remdesivir day #4. Objective - Vital Signs Vital signs: Vital Signs Temp 98.2 F 08/24/20 10:00 Pulse 92 08/24/20 10:00 Resp 16 08/24/20 10:00 BP 147/88 08/24/20 10:00 Pulse Ox 88 L 08/24/20 10:00 Intake & Output 08/23/20 08/24/20 08/24/20 18:59 06:59 18:59 Intake Total 200 200 Balance 200 200 Intake: Oral 200 200 Other: Voiding Method Toilet Toilet Toilet # Voids 2 2 - Exam GENERAL EXAM: Alert, very pleasant, 35-year-old obese female patient, on 2 L/m per nasal cannula, pulse ox is 95% very pleasant comfortable in no apparent distress. HEAD: Normocephalic/atraumatic. EYES: Normal reaction of pupils, equal size. Conjunctiva pink, sclera white. NOSE: Clear with pink turbinates. THROAT: No erythema or exudates. NECK: No masses, no JVD, no thyroid enlargement, no adenopathy. CHEST: No chest wall deformity. Symmetrical expansion. LUNGS: Equal air entry with no crackles, wheeze, rhonchi or dullness. CVS: Regular rate and rhythm, normal S1 and S2, no gallops, no murmurs, no rubs ABDOMEN: Soft, nontender. No hepatosplenomegaly, normal bowel sounds, no guarding or rigidity. EXTREMITIES: No clubbing, no edema, no cyanosis, 2+ pulses and upper and lower extremities. MUSCULOSKELETAL: Muscle strength and tone normal. SPINE: No scoliosis or deformity SKIN: No rashes CENTRAL NERVOUS SYSTEM: Alert and oriented -3. No focal deficits, tone is normal in all 4 extremities. PSYCHIATRIC: Alert and oriented -3. Appropriate affect. Intact judgment and insight. - Labs CBC & Chem 7: 08/24/20 07:26 08/24/20 07:26 Labs: Abnormal Lab Results - Last 24 Hours (Table) 08/24/20 08/24/20 Range/Units 07:26 07:26 MCHC 31.0 L (32.0-37.0) g/dL MPV 9.1 L (9.5-12.2) fL Immature Gran # 0.11 H (0.00-0.04) X 10*3/uL Eosinophils # 0.01 L (0.04-0.35) X 10*3/uL Creatinine 0.5 L (0.6-1.5) mg/dL BUN/Creatinine Ratio 28.00 H (12.00-20.00) Ratio Calcium 8.4 L (8.7-10.3) mg/dL AST 61 H (13-35) U/L ALT 71 H (8-44) U/L Total Protein 6.1 L (6.2-8.2) g/dL Microbiology - Last 24 Hours (Table) 08/21/20 11:19 Blood Culture - Preliminary Blood No Growth after 72 hours 08/21/20 10:59 Blood Culture - Preliminary Blood No Growth after 72 hours Assessment and Plan Assessment: 1 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 Reilly We'll continue the current treatment plan for now Day #4 Remdesivir Probable discharge in the a.m., may need home oxygen We will continue to follow I, the cosigning physician, performed a history & physical examination of the patient. Lungs sounds are clear. Maintaining good O2 saturations in the 90s on 2 L/m nasal cannula. I discussed the assessment and plan of care with my nurse practitioner, Rufina Hart. I attest to the above note as dictated by her.
--- NOTE | 2020-08-24 17:22 | P.PN ---
Subjective Progress Note Date: 08/24/20 Yelitza Adames, 35-year-old female who presented to [facility] emergency room with a chief complaint of cough and shortness of breath, patient was evaluated 2 days ago at [facility] at that time she had a Covid 19 test that was positive, patient is also complaining of right ear pain she was diagnosed with right otitis media and given a course of Ceftin. Patient condition continued to worsen and she decided to come to emergency room for further evaluation. Patient was evaluated in emergency room, vital examination on presentation revealed a temperature of 101.9 pulse 123 respiration 18 and blood pressure 141/79 pulse ox 95% on room air laboratory data revealed a white blood count of 9.5 hemoglobin 13.5 platelet count 217 glucose 137 CO2 reactive protein 84.5 and Procrit serotonin 0.13 d-dimer was 0.95 EKG was done and revealed sinus tachycardia otherwise normal. CT angiogram of the chest revealed bilateral lung infiltrates and no convincing evidence of pulmonary embolism. Patient was admitted to medical floor she was started on IV dexamethasone subcu Lovenox, she was also started on IV Rocephin for right otitis media. Her past medical history is significant for polycystic ovarian syndrome, underlying history of asthma, history of gastroesophageal reflux disease and history of morbid obesity. On review of systems patient is alert and oriented 3 in no apparent distress she is complaining of right ear pain she is complaining of cough and shortness of breath with activity otherwise she denies any complaints there is no fever or chills, patient is complaining of headache, no chest pain no shortness of breath, no nausea or vomiting no abdominal pain no diarrhea no blood in the stools no burning with urination no frequency or urgency and no hematuria On 08/22/2020 patient was seen and examined on the medical floor she is alert and oriented 3 in no apparent distress she is feeling better, cough and shortness of breath has improved, there is no fever or chills no headache or dizziness no chest pain no nausea or vomiting no abdominal pain no diarrhea no blood in the stools no burning with urination no frequency or urgency and no hematuria. On 08/23/2020 patient was seen and examined on the medical floor she is alert and oriented 3 in no distress she is complaining of occasional cough and shortness of breath with activity otherwise she denies any complaints there is no fever or chills no headache or dizziness no chest pain no palpitation no n ausea or vomiting no abdominal pain no diarrhea no blood in the stools no burning with urination no frequency or urgency no hematuria On 08/24/2020 patient was seen and examined on the medical floor she is alert and oriented 3 in no apparent distress there is no fever or chills she has cough and shortness of breath with any activity no chest pain no palpitation no nausea or vomiting no abdominal pain no diarrhea no blood in the stools no burning with urination no frequency or urgency and no hematuria Objective - Vital Signs Vital signs: Vital Signs Temp 97.8 F 08/24/20 05:01 Pulse 78 08/24/20 05:01 Resp 18 08/24/20 05:01 BP 155/101 08/24/20 05:01 Pulse Ox 95 08/24/20 05:01 Intake & Output 08/23/20 08/24/20 08/24/20 18:59 06:59 18:59 Intake Total 200 Balance 200 Intake: Oral 200 Other: Voiding Method Toilet Toilet # Voids 2 - Exam In general patient is alert and oriented 3 in no apparent distress HEENT head normocephalic and atraumatic Neck is supple no JVD no goiter no lymphadenopathy Chest exam reveals a few scattered rhonchi no wheezing Cardiac exam reveals regular heart sounds no gallops no murmurs Abdomen is soft nontender no organomegaly with normal bowel sounds Extremity exam reveals no edema no cyanosis or clubbing Neurological examination reveals no gross focal deficit - Labs CBC & Chem 7: 08/24/20 07:26 08/24/20 07:26 Labs: Abnormal Lab Results - Last 24 Hours (Table) 08/23/20 08/23/20 Range/Units 06:59 06:59 MCHC 30.2 L (32.0-37.0) g/dL MPV 9.1 L (9.5-12.2) fL Immature Gran # 0.06 H (0.00-0.04) X 10*3/uL Eosinophils # 0 L (0.04-0.35) X 10*3/uL BUN/Creatinine Ratio 22.86 H (12.00-20.00) Ratio Calcium 8.4 L (8.7-10.3) mg/dL AST 40 H (13-35) U/L Total Protein 6.0 L (6.2-8.2) g/dL Microbiology - Last 24 Hours (Table) 08/21/20 11:19 Blood Culture - Preliminary Blood No Growth after 48 hours 08/21/20 10:59 Blood Culture - Preliminary Blood No Growth after 48 hours Assessment and Plan Plan: Acute Covid 19 pneumonia Underlying history of asthma no evidence of exacerbation Underlying history of morbid obesity Underlying history of gastroesophageal reflux disease Underlying history of PCOS Recently diagnosed with right otitis media patient is still complaining of right ear pain and she will be given IV Rocephin Hyperglycemia with check hemoglobin A1c Patient was started on IV dexamethasone and subcu Lovenox Pulmonary consultation was requested, patient was started on IV Remdesevir today is day #4 Will check labs and follow-up in am, plan for discharge to home tomorrow
[2020-08-24] MEDS: REMDESIVIR 100 MG in SODIUM CHLORIDE 0.9% 250 ML IVPB SCH (17:41)
[2020-08-24 17:48] VITALS: RESP 18
[2020-08-24] MEDS: PRENATAL VIT-IRON-FOLIC ACID 1 EACH CAP PO SCH (21:13)
[2020-08-25] MEDS: HYDROmorphone 0.5 MG/0.5 ML SYRINGE IVP PRN ×2 (05:24→12:55)
[2020-08-25 06:51] LABS: Basophils % (A) 1 %; Eosinophils % (A) 0 %; HCT 41.9 % (34.0-46.0); HGB 13.8 gm/dL (11.4-16.0); Lymphocytes % (A) 28 %; MCH 28.6 pg (25.0-35.0); MCV 86.7 fL (80.0-100.0); Mean Platelet Volume 6.5; Monocytes # (A) 0.6 k/uL (0-1.0); Monocytes % (A) 8 %; Neutrophils # (A) 4.2 k/uL (1.3-7.7); Neutrophils % (A) 60 %; Platelet Count 284 k/uL (150-450); RBC 4.83 m/uL (3.80-5.40); RDW 13.5 % (11.5-15.5)
[2020-08-25 07:06] LABS: ALT 77 U/L (4-34); AST 59 U/L (14-36); African American GFR (CKD) >90 (>60 ml/min/1.73 sqM); Albumin 3.7 g/dL (3.5-5.0); Albumin/Globulin Ratio 1.3; Alkaline Phosphatase 80 U/L (38-126); Anion Gap 8 mmol/L; Blood Urea Nitrogen 20 mg/dL (7-17); Calcium 9.2 mg/dL (8.4-10.2); Carbon Dioxide 30 mmol/L (22-30); Chloride 104 mmol/L (98-107); Globulin 2.9 g/dL; Glucose 112 mg/dL (74-99); Non-African American GFR(CKD) >90 (>60 ml/min/1.73 sqM); Potassium 5.1 mmol/L (3.5-5.1); Sodium 142 mmol/L (137-145); Total Bilirubin 0.4 mg/dL (0.2-1.3); Total Protein 6.6 g/dL (6.3-8.2)
[2020-08-25] MEDS: ALBUTEROL HFA INHALER INHALATION PRN ×2 (08:38→11:54)
[2020-08-25] MEDS: metFORMIN 500 MG TAB PO SCH (08:41)
[2020-08-25] MEDS: amLODIPine 5 MG TAB PO SCH (08:41)
[2020-08-25] MEDS: COLCHICINE 0.6 MG EACH PO SCH (08:42)
[2020-08-25] MEDS: ENOXAPARIN 40 MG/0.4 ML SYRINGE SQ SCH (08:42)
[2020-08-25] MEDS: DEXAMETHASONE SOD PHOSPHATE 10 MG/ML 1 ML VIAL IV SCH (08:43)
--- NOTE | 2020-08-25 12:22 | XR ---
EXAMINATION TYPE: XR chest 1V DATE OF EXAM: 08/25/2020 COMPARISON: Chest x-ray 08/21/2020 HISTORY: Covid pneumonia TECHNIQUE: Single frontal view of the chest is obtained. FINDINGS: Bilateral patchy airspace disease is again noted. No other significant interval change. IMPRESSION: Findings consistent with patient's history Covid pneumonia, follow-up suggested
[2020-08-25] MEDS: REMDESIVIR 100 MG in SODIUM CHLORIDE 0.9% 250 ML IVPB SCH (12:55)
[2020-08-25 13:45] VITALS: BP 146/89; PULSE 85; TEMP 98.2
--- NOTE | 2020-08-25 13:51 | P.PN ---
Subjective Progress Note Date: 08/25/20 Principal diagnosis: Acute CoVID 19 pneumonitis This is a 35-year-old female with 3 days history of nonproductive cough, headaches, shortness of breath, body aches, and earache as well as a bit of a sore throat. 2 days ago, patient was diagnosed with positive PCR for covid 19 infection. Considering her symptoms have been getting worse in spite of [id number] analgesics, and considering that the patient had poor oral intake with some nausea but no vomiting and no diarrhea, patient was evaluated in the ER, chest x-ray showed bilateral peripheral infiltrates. CT of the chest clearly showed multifocal peribronchial and peripheral groundglass opacities. Patient had O2 saturation of 91% on room air, and she had 97% on 2 L. Patient was admitted and this consult was initiated. On 08/22/2020 patient seen in follow-up on medical surgical floor, she is feeling better, breathing easier, occasional cough, no couplets or chest pain, currently on room air, pulse ox is 94%, no fever or chills, today is day 2 of Remdesivir, she continues on Decadron, she is on IV fluids at 75 ML per hour, and Rocephin was added for right ear pain and possibility of otitis media. No nausea vomiting or diarrhea. It is labs have been reviewed, d-dimer 0.95, LDH was 347 and CRP was 84 On 08/23/2020 patient seen in follow-up on medical surgical floor, doing well, breathing easier, however still requiring oxygen, at 2 L, her pulse ox between 91-92%, low-grade fever with T-max of 99.7F overnight, afebrile this morning, no chest discomfort or chest tightness, patient is on day 3 of Remdesivir treatment, she remains Decadron, prophylactic Lovenox, and prophylactic Rocephin for right otitis media. No acute events overnight. Patient is tolerating ambulation patient got up to take a shower today. Today's labs have been reviewed, lymphocyte count has improved and is up to 1.8 to, electrolytes and renal profile are unremarkable. The patient is seen today 08/24/2020 and follow-up on the regular medical floor. Currently sitting up in bed. Awake and alert in no acute distress. Maintaining O2 saturation in the 90s on 2 L/m per nasal cannula. 88% on room air. Currently afebrile. Blood cultures reveal no growth. White count 9.0. Hemoglobin 13.1. Sodium 141. Potassium 3.9. Creatinine 0.5. Remains on dexamethasone,: Lionel, Lovenox, vitamin supplements. Remdesivir day #4. The patient is seen today 08/25/2020 in follow-up on the regular medical floor. She is currently sitting up in bed. Awake and alert in no acute distress. She is maintaining O2 saturations in the low 90s on 2 L/m per nasal cannula. She did desaturate to 88% on room air at rest. She will require home oxygen. Today's chest x-ray continues to show bilateral patchy airspace disease. No worsening. No significant change. D-dimer 0.58. White count 10.0. Hemoglobin 13.0. Lymphocytes 2.0. Sodium 142. Potassium 5.1. Creatinine 0.73. Objective - Vital Signs Vital signs: Vital Signs Temp 98.2 F 08/25/20 13:44 Pulse 85 08/25/20 13:44 Resp 18 08/25/20 13:44 BP 146/89 08/25/20 13:44 Pulse Ox 91 L 08/25/20 13:44 Intake & Output 08/24/20 08/25/20 08/25/20 18:59 06:59 18:59 Intake Total 200 Balance 200 Intake: Oral 200 Other: Voiding Method Toilet Toilet Toilet # Voids 2 - Exam GENERAL EXAM: Alert, very pleasant, 35-year-old obese female patient, on 2 L/m per nasal cannula, pulse ox is 91%, comfortable in no apparent distress. HEAD: Normocephalic/atraumatic. EYES: Normal reaction of pupils, equal size. Conjunctiva pink, sclera white. NOSE: Clear with pink turbinates. THROAT: No erythema or exudates. NECK: No masses, no JVD, no thyroid enlargement, no adenopathy. CHEST: No chest wall deformity. Symmetrical expansion. LUNGS: Equal air entry with faint crackles in bilateral posterior bases. CVS: Regular rate and rhythm, normal S1 and S2, no gallops, no murmurs, no rubs ABDOMEN: Soft, nontender. No hepatosplenomegaly, normal bowel sounds, no guarding or rigidity. EXTREMITIES: No clubbing, no edema, no cyanosis, 2+ pulses and upper and lower extremities. MUSCULOSKELETAL: Muscle strength and tone normal. SPINE: No scoliosis or deformity SKIN: No rashes CENTRAL NERVOUS SYSTEM: Alert and oriented -3. No focal deficits, tone is normal in all 4 extremities. PSYCHIATRIC: Alert and oriented -3. Appropriate affect. Intact judgment and insight. - Labs CBC & Chem 7: 08/25/20 06:20 08/25/20 06:20 Labs: Abnormal Lab Results - Last 24 Hours (Table) 08/25/20 Range/Units 06:20 BUN 20 H (7-17) mg/dL Glucose 112 H (74-99) mg/dL AST 59 H (14-36) U/L ALT 77 H (4-34) U/L Microbiology - Last 24 Hours (Table) 08/21/20 11:19 Blood Culture - Preliminary Blood No Growth after 96 hours 08/21/20 10:59 Blood Culture - Preliminary Blood No Growth after 96 hours Assessment and Plan Assessment: 1 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 Reilly Chest x-ray and labs reviewed Cleared for discharge from the pulmonary standpoint Day #5 of Remdesivir Will require home oxygen Follow up in the office in 3-4 weeks' time I, the cosigning physician, performed a history & physical examination of the patient. Lungs sounds with faint crackles in bilateral posterior bases. Maintaining good O2 saturations in the 90s on 2 L/m nasal cannula. I discussed the assessment and plan of care with my nurse practitioner, Rufina Hart. I attest to the above note as dictated by her.
[2020-08-25] MEDS: SODIUM CHLORIDE 0.9% 1,000 ML IV SCH (15:40)
--- NOTE | 2020-08-30 10:51 | P.DS ---
Providers Date of admission: 08/21/20 13:05 Expected date of discharge: 08/25/20 Attending physician: Hailey Whalen Consults: 08/21/20 13:17 Consult Physician Stat Consulting Provider: Bar Reilly Consult Reason/Comments: Covid pneumonia Do you want consulting provider notified?: Yes Primary care physician: Hailey Marlee [facility] Course: Diagnoses on discharge: Acute Covid 19 pneumonia Underlying history of asthma no evidence of exacerbation Underlying history of morbid obesity Underlying history of gastroesophageal reflux disease Underlying history of PCOS Recently diagnosed with right otitis media patient is still complaining of right ear pain and she will be given IV Rocephin Hyperglycemia with check hemoglobin A1c Hospital course: Yelitza Adames, 35-year-old female who presented to [facility] emergency room with a chief complaint of cough and shortness of breath, patient was evaluated 2 days ago at [facility] at that time she had a Covid 19 test that was positive, patient is also complaining of right ear pain she was diagnosed with right otitis media and given a course of Ceftin. Patient condition continued to worsen and she decided to come to emergency room for further evaluation. Patient was evaluated in emergency room, vital examination on presentation revealed a temperature of 101.9 pulse 123 respiration 18 and blood pressure 141/79 pulse ox 95% on room air laboratory data revealed a white blood count of 9.5 hemoglobin 13.5 platelet count 217 glucose 137 CO2 reactive protein 84.5 and Procrit serotonin 0.13 d-dimer was 0.95 EKG was done and revealed sinus tachycardia otherwise normal. CT angiogram of the chest revealed bilateral lung infiltrates and no convincing evidence of pulmonary embolism. Patient was admitted to medical floor she was started on IV dexamethasone subcu Lovenox, she was also started on IV Rocephin for right otitis media. Her past medical history is significant for polycystic ovarian syndrome, underlying history of asthma, history of gastroesophageal reflux disease and history of morbid obesity. On review of systems patient is alert and oriented 3 in no apparent distress she is complaining of right ear pain she is complaining of cough and shortness of breath with activity otherwise she denies any complaints there is no fever or chills, patient is complaining of headache, no chest pain no shortness of breath, no nausea or vomiting no abdominal pain no diarrhea no blood in the stools no burning with urination no frequency or urgency and no hematuria On 08/22/2020 patient was seen and examined on the medical floor she is alert and oriented 3 in no apparent distress she is feeling better, cough and shortness of breath has improved, there is no fever or chills no headache or dizziness no chest pain no nausea or vomiting no abdominal pain no diarrhea no blood in the stools no burning with urination no frequency or urgency and no hematuria. On 08/23/2020 patient was seen and examined on the medical floor she is alert and oriented 3 in no distress she is complaining of occasional cough and shortness of breath with activity otherwise she denies any complaints there is no fever or chills no headache or dizziness no chest pain no palpitation no nausea or vomiting no abdominal pain no diarrhea no blood in the stools no burning with urination no frequency or urgency no hematuria On 08/24/2020 patient was seen and examined on the medical floor she is alert and oriented 3 in no apparent distress there is no fever or chills she has cough and shortness of breath with any activity no chest pain no palpitation no nausea or vomiting no abdominal pain no diarrhea no blood in the stools no burning with urination no frequency or urgency and no hematuria On 08/25/2020 patient discharged on Decadron Norvasc and albuterol inhaler. Patient to follow-up with her PCP for further management Patient Condition at Discharge: Good Plan - Discharge Summary Discharge Rx Participant: Yes New Discharge Prescriptions: New amLODIPine [Norvasc] 5 mg PO DAILY tab Albuterol Inhaler [Ventolin Hfa Inhaler] 2 puff INHALATION RT-QID PRN puff PRN Reason: Shortness Of Breath Or Wheezing Dexamethasone [Decadron] 4 mg PO DAILY 10 Days #10 tablet Continue Pnv,Calcium 72/Iron/Folic Acid [ Plus Tablet] 1 tab PO HS metFORMIN HCL [Glucophage] 500 mg PO BID Ibuprofen [Motrin Ib] 200 mg PO Q6H PRN PRN Reason: Pain Discontinued Cefuroxime Axetil [Ceftin] 500 mg PO BID Discharge Medication List Pnv,Calcium 72/Iron/Folic Acid [ Plus Tablet] 1 tab PO HS 10/28/14 [History] metFORMIN HCL [Glucophage] 500 mg PO BID 07/29/15 [History] Ibuprofen [Motrin Ib] 200 mg PO Q6H PRN 08/21/20 [History] Albuterol Inhaler [Ventolin Hfa Inhaler] 2 puff INHALATION RT-QID PRN puff 08/25/20 [Rx] Dexamethasone [Decadron] 4 mg PO DAILY 10 Days #10 tablet 08/25/20 [Rx] amLODIPine [Norvasc] 5 mg PO DAILY tab 08/25/20 [Rx] Follow up Appointment(s)/Referral(s): Hailey Whalen MD [Primary Care Provider] - 1-2 days (office not answering at time of discharge. Please call to schedule appointment ) Patient Instructions/Handouts: Coronavirus Disease 2019 (COVID-19) Discharge Disposition: HOME SELF-CARE
== END 2020-08-25 16:00 | disposition home or self-care (01) | DRG 177 ==
LOC: EC 10:24 → 4SSUR 13:05
PROVIDERS: ADMIT Internal Medicine; ATTEND Internal Medicine
PROC: XW033E5 Introduction of Remdesivir Anti-infective into Peripheral Vein, Percutaneous Approach, New Technology Group 5 (ICD-10-PCS; principal; 2020-08-21)
DX: U07.1 COVID-19 (principal); J12.82 Pneumonia due to coronavirus disease 2019; J96.01 Acute respiratory failure with hypoxia; Z68.42 Body mass index [BMI] 45.0-49.9, adult; J44.0 Chronic obstructive pulmonary disease with (acute) lower respiratory infection; E66.01 Morbid (severe) obesity due to excess calories; H66.91 Otitis media, unspecified, right ear; K21.9 Gastro-esophageal reflux disease without esophagitis; E28.2 Polycystic ovarian syndrome; I10 Essential (primary) hypertension; R73.9 Hyperglycemia, unspecified; Z79.84 Long term (current) use of oral hypoglycemic drugs; Z79.899 Other long term (current) drug therapy; Z87.19 Personal history of other diseases of the digestive system; Z90.49 Acquired absence of other specified parts of digestive tract; Z98.891 History of uterine scar from previous surgery; Z98.890 Other specified postprocedural states; Z83.3 Family history of diabetes mellitus; Z83.49 Family history of other endocrine, nutritional and metabolic diseases; Z82.0 Family history of epilepsy and other diseases of the nervous system
CPT/HCPCS: 36415; 71045; 71275; 80053; 82728; 83036; 83605; 83615; 83735; 84145; 85025; 85379; 85610; 85730; 86140; 87040; 93005; 94640; 94760; 99285

== ENCOUNTER 2020-12-30 11:06 | Emergency (ER) | payer OTHER ==
[2020-12-30 11:12] VITALS: RESP 18; TEMP 98
[2020-12-30] MEDS ORDERED: methylPREDNISolone SOD SUCCI 125 MG/2 ML VIAL IM ONE (11:23)
--- NOTE | 2020-12-30 11:24 | ED ---
General Adult HPI - General Chief complaint: Allergic Reaction Stated complaint: Tongue Swelling Time Seen by Provider: 12/30/20 11:13 Source: patient, family, RN notes reviewed Mode of arrival: ambulatory Limitations: no limitations - History of Present Illness Initial comments: Patient is a pleasant 35-year-old female presenting to the emergency department with concerns for tongue swelling. Onset of symptoms was around 45 minutes ago. Patient noticed this when she woke up. Patient did take 2 Benadryl pills with some improvement of symptoms. No history of similar symptoms. She. No recent change in medications. Patient does not take KARINA inhibitor's. No recent new food exposure or other exposures. No throat swelling. No dyspnea. - Related Data Home Medications Medication Instructions Recorded Confirmed Pnv,Calcium 72/Iron/Folic Acid 1 tab PO HS 10/28/14 08/21/20 [ Plus Tablet] metFORMIN HCL [Glucophage] 500 mg PO BID 07/29/15 08/21/20 Ibuprofen [Motrin Ib] 200 mg PO Q6H PRN 08/21/20 08/21/20 Previous Rx's Medication Instructions Recorded Albuterol Inhaler [Ventolin Hfa 2 puff INHALATION RT-QID PRN puff 08/25/20 Inhaler] Dexamethasone [Decadron] 4 mg PO DAILY 10 Days #10 tablet 08/25/20 amLODIPine [Norvasc] 5 mg PO DAILY tab 08/25/20 predniSONE [Deltasone] 20 mg PO BID #10 tab 12/30/20 Allergies Allergy/AdvReac Type Severity Reaction Status Date / Time No Known Allergies Allergy Verified 12/30/20 11:12 Review of Systems ROS Statement: Those systems with pertinent positive or pertinent negative responses have been documented in the HPI. ROS Other: All systems not noted in ROS Statement are negative. Constitutional: Denies: fever Eyes: Denies: eye pain ENT: Reports: as per HPI. Denies: ear pain Respiratory: Denies: cough, dyspnea Cardiovascular: Denies: chest pain Endocrine: Denies: fatigue Gastrointestinal: Denies: abdominal pain Genitourinary: Denies: dysuria Musculoskeletal: Denies: back pain Skin: Denies: rash Neurological: Denies: weakness Past Medical History Past Medical History: Asthma, GERD/Reflux, Hypertension Additional Past Medical History / Comment(s): pcos, HTN during History of Any Multi-Drug Resistant Organisms: None Reported Past Surgical History: Appendectomy, Section, Cholecystectomy Additional Past Surgical History / Comment(s): 5 years ago lithotripsy Past Anesthesia/Blood Transfusion Reactions: No Reported Reaction Past Psychological History: No Psychological Hx Reported Smoking Status: Never smoker Past Alcohol Use History: Occasional Past Drug Use History: None Reported - Past Family History Mother Family Medical History: Seizure Disorder Additional Family Medical History / Comment(s): Grand Mal Seizures, well controlled Father Family Medical History: Diabetes Mellitus, Hyperlipidemia General Exam Limitations: no limitations General appearance: alert, in no apparent distress Head exam: Present: normocephalic Eye exam: Present: normal appearance Neck exam: Present: other (Mild right-sided tongue edema. Trace edema of the lower lip. No posterior pharynx or uvula swelling.) Respiratory exam: Present: normal lung sounds bilaterally Cardiovascular Exam: Present: regular rate, normal rhythm GI/Abdominal exam: Present: soft. Absent: tenderness Extremities exam: Present: normal inspection Neurological exam: Present: alert Psychiatric exam: Present: normal affect, normal mood Skin exam: Present: normal color. Absent: rash Course Vital Signs 12/30/20 12/30/20 11:09 11:56 Temperature 98 F Pulse Rate 107 H Respiratory 18 18 Rate Blood Pressure 162/91 O2 Sat by Pulse 99 Oximetry Medical Decision Making - Medical Decision Making Patient reevaluated with slight improvement. Patient family updated on results and need for follow-up. Disposition Clinical Impression: Angioedema Disposition: HOME SELF-CARE Condition: Stable Instructions (If sedation given, give patient instructions): Angioedema (ED) Additional Instructions: Please do follow-up to primary care physician in the next day or 2 for recheck. Return for difficulty breathing, increased swelling of the tongue or throat or lips, worsening or changing symptoms or other concerns. Continue [id number] Benadryl for the next 5 days. If this makes her too drowsy consider Claritin or Lorraine alternative. Prescription for steroid has been s ent to your pharmacy. Prescriptions: predniSONE [Deltasone] 20 mg PO BID #10 tab Is patient prescribed a controlled substance at d/c from ED?: No Referrals: Hailey Whalen MD [Primary Care Provider] - 1-2 days Time of Disposition: 12:36
[2020-12-30 12:47] VITALS: BP 142/93; PULSE 70
== END 2020-12-30 12:47 | disposition home or self-care (01) ==
LOC: EC 11:06
DX: T78.3XXA Angioneurotic edema, initial encounter (principal); J45.909 Unspecified asthma, uncomplicated; I10 Essential (primary) hypertension; K21.9 Gastro-esophageal reflux disease without esophagitis; Z79.1 Long term (current) use of non-steroidal anti-inflammatories (NSAID); Z79.52 Long term (current) use of systemic steroids; Z79.84 Long term (current) use of oral hypoglycemic drugs; Z79.51 Long term (current) use of inhaled steroids
CPT/HCPCS: 99284; 96372; J2930

== ENCOUNTER 2021-01-10 19:26 | Emergency (ER) | payer OTHER ==
[2021-01-10 20:00] VITALS: TEMP 98.2
[2021-01-10] MEDS ORDERED: diphenhydrAMINE 50 MG/ML 1 ML VIAL IVP STA (20:19)
[2021-01-10] MEDS ORDERED: ONDANSETRON 4 MG/2 ML VIAL IVP STA (20:19)
[2021-01-10] MEDS ORDERED: SODIUM CHLORIDE 0.9% 1,000 ML IV STA (20:19)
[2021-01-10] MEDS ORDERED: KETOROLAC 15 MG/ML 1 ML VIAL IVP STA (20:19)
[2021-01-10] MEDS ORDERED: FAMOTIDINE 20 MG/2 ML VIAL IV STA (20:21)
[2021-01-10 20:55] LABS: Basophils # (A) 0.1 k/uL (0-0.2); Basophils % (A) 0 %; Eosinophils # (A) 0.5 k/uL (0-0.7); Eosinophils % (A) 3 %; HCT 41.5 % (34.0-46.0); HGB 13.6 gm/dL (11.4-16.0); Lymphocytes % (A) 11 %; MCH 28.9 pg (25.0-35.0); MCHC 32.7 g/dL (31.0-37.0); MCV 88.3 fL (80.0-100.0); Mean Platelet Volume 6.6; Monocytes # (A) 0.8 k/uL (0-1.0); Monocytes % (A) 4 %; Neutrophils # (A) 15.3 k/uL (1.3-7.7); Neutrophils % (A) 81 %; Platelet Count 315 k/uL (150-450); RDW 12.9 % (11.5-15.5); WBC 18.9 k/uL (3.8-10.6)
[2021-01-10 21:05] LABS: ALT 26 U/L (4-34); AST 27 U/L (14-36); African American GFR (CKD) >90 (>60 ml/min/1.73 sqM); Alkaline Phosphatase 113 U/L (38-126); Anion Gap 9 mmol/L; Blood Urea Nitrogen 14 mg/dL (7-17); Calcium 9.8 mg/dL (8.4-10.2); Carbon Dioxide 25 mmol/L (22-30); Chloride 104 mmol/L (98-107); Glucose 131 mg/dL (74-99); Lipase 50 U/L (23-300); Non-African American GFR(CKD) >90 (>60 ml/min/1.73 sqM); Potassium 4.2 mmol/L (3.5-5.1); Sodium 138 mmol/L (137-145); Total Bilirubin 0.1 mg/dL (0.2-1.3); Total Protein 6.7 g/dL (6.3-8.2)
[2021-01-10 21:06] LABS: Amorphous Sediment,Urine Rare /hpf; Appearance,Urine Clear (Clear); Bilirubin,Urine Negative (Negative); Blood,Urine Large (Negative); Budding Yeast,Urine Occasional /hpf; Color,Urine Yellow; Glucose,Urine (UA) Negative (Negative); Ketones,Urine Negative (Negative); Leukocyte Esterase,Urine Negative (Negative); Mucus,Urine Rare /hpf; Nitrite,Urine Negative (Negative); PH, Urine 5.5 (5.0-8.0); Protein,Urine Trace (Negative); RBC,Urine >182 /hpf (0-5); Specific Gravity,Urine 1.023 (1.001-1.035); Squamous Epithelial Cell,Urine 2 /hpf (0-4); Urobilinogen,Urine <2.0 mg/dL (<2.0); WBC,Urine 4 /hpf (0-5)
[2021-01-10 22:03] VITALS: RESP 18
[2021-01-10] MEDS ORDERED: HYDROcodone/APAP 5-325MG 1 EACH TAB PO STA ×2 (22:06→22:37)
--- NOTE | 2021-01-10 22:17 | US ---
EXAMINATION TYPE: US renals and bladder DATE OF EXAM: 01/10/2021 COMPARISON: CT, US CLINICAL HISTORY: left flank pain. Left flank pain. Assess for nephrolithiasis, hydronephrosis. EXAM MEASUREMENTS: Right Kidney: 12.3 x 6.8 x 4.8 cm Left Kidney: 13.6 x 6.6 x 7.3 cm Exam limited due to gas and body habitus. Right Kidney: No hydronephrosis or masses seen. Slightly enlarged versus upper limits of normal size. Left Kidney: Appears enlarged. Anechoic connecting areas seen, possible dilated collecting system? Hyperechoic focus seen measuring 0.5 x 0.6 x 0.4 cm. Bladder: Bladder wall appears thickened at 0.46 cm. Bilateral Jets seen: Yes IMPRESSION: No evidence of renal obstruction. Urinary bladder wall thickening suggestive of some cystitis. No letha picious renal mass.
--- NOTE | 2021-01-10 22:19 | US ---
EXAMINATION TYPE: US transvaginal DATE OF EXAM: 01/10/2021 COMPARISON: CT, US CLINICAL HISTORY: history of ovarian cysts, abdominal pain. Hx ovarian cysts, 1 , PCOS. Farrah ent has irregular periods. . TECHNIQUE: Transvaginal (TV). Date of LMP: 10/19/2020 EXAM MEASUREMENTS: Uterus: 8.0 x 5.0 x 3.6 cm Endometrial Stripe: 0.49 cm Right Ovary: 3.4 x 2.4 x 2.4 cm Left Ovary: Not seen. 1. Uterus: Anteverted Appears heterogeneous. Hypoechoic fluid-appearing area seen in cervix: 1.9 x 0.4 x 0.3 cm. Multiple subcentimeter anechoic areas in cervix. Hyperechoic area seen anterior/super ior to the uterus: 0.4 x 0.4 x 0.3 cm. 2. Endometrium: 0.49 cm. 3. Right Ovary: Hypoechoic area seen: 1.0 x 0.8 x 0.6 cm. 4. Left Ovary: Not seen. Spectral, color and waveform doppler imaging shows arterial flow within the right ovary. It was dif ficult to show a clear venous waveform. Possible venous waveform seen, limited. Left ovary not seen. 5. Bilateral Adnexa: Appear to be wnl. 6. Posterior cul-de-sac: Minimal fluid seen. IMPRESSION: Left ovary not seen. No evidence of ovarian torsion. Right ovarian cyst. No solid adnexal mass. Minim al fluid in the cul-de-sac.
[2021-01-10] MEDS ORDERED: FLUCONAZOLE 100 MG TAB PO ONE (22:28)
[2021-01-10] MEDS ORDERED: TAMSULOSIN 0.4 MG CAP.ER.24H PO STA (22:37)
--- NOTE | 2021-01-10 22:38 | ED ---
General Adult HPI - General Chief complaint: Abdominal Pain Stated complaint: lower lef back pain Time Seen by Provider: 01/10/21 19:45 Source: patient, RN notes reviewed, old records reviewed Mode of arrival: ambulatory Limitations: no limitations - History of Present Illness Initial comments: Patient is a 35-year-old female with past medical history for multiple kidney stones in the past, hypertension, asthma, obesity, polycystic ovarian syndrome who presents emergency Department complaining of acute onset of left-sided flank pain. Patient states that this started at approximately 5 PM this evening. She has also noticed some blood in her urine. She denies any dysuria. Denies any chest pain or shortness of breath but does endorse nausea and vomiting. She's had multiple episodes of nonbilious emesis. Denies any change in stool habits or bloody stools. Denies any fevers, chills. No back pain. Denies vaginal bleeding or discharge. States she is not . She is not acutely suicidal. Patient feels like this is her kidney stone presentation is typical for her. She presents due to her nausea and vomiting as well as her left side pain. She denies any known palliative or provocative factors. She does describes the left flank pain is sharp with mild radiation towards her groin. - Related Data Home Medications Medication Instructions Recorded Confirmed Pnv,Calcium 72/Iron/Folic Acid 1 tab PO HS 10/28/14 01/10/21 [ Plus Tablet] metFORMIN HCL [Glucophage] 500 mg PO BID 07/29/15 01/10/21 Ferrous Sulfate [Feosol] 325 mg PO DAILY 01/10/21 01/10/21 Phentermine HCl [Adipex-P] 37.5 mg PO DAILY 01/10/21 01/10/21 Previous Rx's Medication Instructions Recorded amLODIPine [Norvasc] 5 mg PO DAILY tab 08/25/20 HYDROcodone/APAP 5-325MG [[place] 1 tab PO Q6HR PRN 3 Days #12 tab 01/10/21 5-325] Ibuprofen [Motrin] 800 mg PO Q8H 7 Days #21 tab 01/10/21 Ondansetron Odt [Zofran Odt] 4 mg PO Q8HR PRN 3 Days #9 tab 01/10/21 Tamsulosin [Flomax] 0.4 mg PO DAILY 10 Days #10 cap 01/10/21 Allergies Allergy/AdvReac Type Severity Reaction Status Date / Time No Known Allergies Allergy Verified 01/10/21 20:40 Review of Systems ROS Statement: Those systems with pertinent positive or pertinent negative responses have been documented in the HPI. Review of Systems: CONST: Denies fever EYES: Denies blurry vision ENT: Denies nasal congestion C/V: Denies Chest pain RESP: Denies shortness of breath GI: Endorses left flank pain : Endorses SKIN: Denies rash. MSK: Denies joint pain. NEURO: Denies headache ROS Other: All systems not noted in ROS Statement are negative. Past Medical History Past Medical History: Asthma, GERD/Reflux, Hypertension Additional Past Medical History / Comment(s): pcos, HTN during History of Any Multi-Drug Resistant Organisms: None Reported Past Surgical History: Appendectomy, Section, Cholecystectomy Additional Past Surgical History / Comment(s): 5 years ago lithotripsy Past Anesthesia/Blood Transfusion Reactions: No Reported Reaction Past Psychological History: No Psychological Hx Reported Smoking Status: Never smoker Past Alcohol Use History: Occasional Past Drug Use History: None Reported - Past Family History Mother Family Medical History: Seizure Disorder Additional Family Medical History / Comment(s): Grand Mal Seizures, well controlled Father Family Medical History: Diabetes Mellitus, Hyperlipidemia General Exam - General Exam Comments Initial Comments: General: Appears in mild distress secondary to left flank discomfort. HEAD: Normal with no signs of head trauma. EYES: PERRLA, EOMI, conjunctiva normal, no discharge. ENT: Hearing grossly intact, normal oropharynx. Mucous membranes are moist. RESPIRATORY: Clear breath sounds bilaterally. No wheezes, rales, or rhonchi. C/V: Patient is mildly tachycardic with regular rhythm. S1 and S2 auscultated. Peripheral pulses are 2+ intact throughout. ABD: Abdomen soft, nondistended. Patient is tender to palpation over the left flank. She is no tenderness to percussion of the left or right CVA. There is no rebound tenderness. No peritoneal signs. EXT: Normal range of motion, no obvious deformity SKIN: No rashes or lesions observed on exposed skin. NEURO: Alert and oriented 4. Limitations: no limitations Course Vital Signs 01/10/21 01/10/21 19:57 22:02 Temperature 98.2 F Pulse Rate 108 H 92 Respiratory 17 18 Rate Blood Pressure 161/119 151/95 O2 Sat by Pulse 98 95 Oximetry Medical Decision Making - Medical Decision Making Based on the patient's presentation and physical exam, I do believe she is likely experiencing pain secondary to acute nephrolithiasis. I cannot rule out infection at this time such as UTI or KEYBOARD OPERATOR abnormality such as ovarian torsion due to the sudden onset of the pain. Therefore we will obtain abdominal laboratory studies including urinalysis and urine test. We'll also obtain an ultrasound of the ovaries with duplex as well as renal ultrasound to assess for hydronephrosis and nephrolithiasis. Patient will be symptomatically treated with 1 L fluid bolus as well as IV Benadryl, Pepcid, Toradol, Zofran. She was in agreement with this plan. Patient's laboratory studies are remarkable for leukocytosis of 18.9 without any obvious signs of infection. Patient's urinalysis is remarkable for a large number of RBCs without any signs of UTI. There are occasional yeast as well. It does appear to be a clean catch. test is negative. Pelvic ultrasound revealed a right ovarian cyst and was otherwise normal. Renal ultrasound revealed no evidence of renal obstruction. There is some bladder wall thickening suggestive of muscle cystitis. A suspicious renal mass. No signs of acute renal stone. The patient's leukocytosis is likely reactive. On reevaluation, patient is tolerating by mouth intake at this time. Tachycardia is resolved. She states that her pain is improved but is requesting additional pain medication. I will provide her with 2 [place] fives. I discussed with her the results of laboratory studies including a leukocytosis, and she states that with prior renal stones she endorses this happening before without any signs of infection. Typically has an "overreactive immune response" per pat ient when this happens after she has had discussions with her PCP regarding this. There are no signs of acute infection except for some yeast and therefore we will provide her with a one time dose of fluconazole. Patient also received Flomax in the department. I will provide her with prescriptions for Zofran ODT, Flomax, [place] 5. She was in agreement with this plan. I will provide the patient with a prescription for Zofran ODT, Flomax, [place] 5, ibuprofen 800 mg. I instructed the patient to follow up with their PCP in the next 3 days. I provided contact information for follow up with urology, Dr Pickard. I explained that the patient should return to the emergency department if they experience any worsening symptoms. Strict return precautions were discussed with the patient. The patient expressed understanding of these instructions. I answered all questions that the patient had. The patient was discharged home in fair condition with their prescriptions and follow up info rmation. - Lab Data Result diagrams: 01/10/21 20:40 01/10/21 20:40 Lab Results 01/10/21 01/10/21 01/10/21 Range/Units 20:40 20:40 20:40 WBC 18.9 H (3.8-10.6) k/uL RBC 4.70 (3.80-5.40) m/uL Hgb 13.6 (11.4-16.0) gm/dL Hct 41.5 (34.0-46.0) % MCV 88.3 (80.0-100.0) fL MCH 28.9 (25.0-35.0) pg MCHC 32.7 (31.0-37.0) g/dL RDW 12.9 (11.5-15.5) % Plt Count 315 (150-450) k/uL MPV 6.6 Neutrophils % 81 % Lymphocytes % 11 % Monocytes % 4 % Eosinophils % 3 % Basophils % 0 % Neutrophils # 15.3 H (1.3-7.7) k/uL Lymphocytes # 2.0 (1.0-4.8) k/uL Monocytes # 0.8 (0-1.0) k/uL Eosinophils # 0.5 (0-0.7) k/uL Basophils # 0.1 (0-0.2) k/uL Sodium 138 (137-145) mmol/L Potassium 4.2 (3.5-5.1) mmol/L Chloride 104 (98-107) mmol/L Carbon Dioxide 25 (22-30) mmol/L Anion Gap 9 mmol/L BUN 14 (7-17) mg/dL Creatinine 0.76 (0.52-1.04) mg/dL Est GFR (CKD-EPI)AfAm >90 (>60 ml/min/1.73 sqM) Est GFR (CKD-EPI)NonAf >90 (>60 ml/min/1.73 sqM) Glucose 131 H (74-99) mg/dL Calcium 9.8 (8.4-10.2) mg/dL Total Bilirubin 0.1 L (0.2-1.3) mg/dL AST 27 (14-36) U/L ALT 26 (4-34) U/L Alkaline Phosphatase 113 (38-126) U/L Total Protein 6.7 (6.3-8.2) g/dL Albumin 4.0 (3.5-5.0) g/dL Lipase 50 (23-300) U/L Urine Color Yellow Urine Appearance Clear (Clear) Urine pH 5.5 (5.0-8.0) Ur Specific [place] 1.023 (1.001-1.035) Urine Protein Trace H (Negative) Urine Glucose (UA) Negative (Negative) Urine Ketones Negative (Negative) Urine Blood Large H (Negative) Urine Nitrite Negative (Negative) Urine Bilirubin Negative (Negative) Urine Urobilinogen <2.0 (<2.0) mg/dL Ur Leukocyte Esterase Negative (Negative) Urine RBC >182 H (0-5) /hpf Urine WBC 4 (0-5) /hpf Ur Squamous Epith Cells 2 (0-4) /hpf Amorphous Sediment Rare H (None) /hpf Urine Mucus Rare H (None) /hpf Urine Yeast (Budding) Occasional H (None) /hpf Urine HCG, Qual (Not Detectd) 01/10/21 Range/Units 20:40 WBC (3.8-10.6) k/uL RBC (3.80-5.40) m/uL Hgb (11.4-16.0) gm/dL Hct (34.0-46.0) % MCV (80.0-100.0) fL MCH (25.0-35.0) pg MCHC (31.0-37.0) g/dL RDW (11.5-15.5) % Plt Count (150-450) k/uL MPV Neutrophils % % Lymphocytes % % Monocytes % % Eosinophils % % Basophils % % Neutrophils # (1.3-7.7) k/uL Lymphocytes # (1.0-4.8) k/uL Monocytes # (0-1.0) k/uL Eosinophils # (0-0.7) k/uL Basophils # (0-0.2) k/uL Sodium (137-145) mmol/L Potassium (3.5-5.1) mmol/L Chloride (98-107) mmol/L Carbon Dioxide (22-30) mmol/L Anion Gap mmol/L BUN (7-17) mg/dL Creatinine (0.52-1.04) mg/dL Est GFR (CKD-EPI)AfAm (>60 ml/min/1.73 sqM) Est GFR (CKD-EPI)NonAf (>60 ml/min/1.73 sqM) Glucose (74-99) mg/dL Calcium (8.4-10.2) mg/dL Total Bilirubin (0.2-1.3) mg/dL AST (14-36) U/L ALT (4-34) U/L Alkaline Phosphatase (38-126) U/L Total Protein (6.3-8.2) g/dL Albumin (3.5-5.0) g/dL Lipase (23-300) U/L Urine Color Urine Appearance (Clear) Urine pH (5.0-8.0) Ur Specific [place] (1.001-1.035) Urine Protein (Negative) Urine Glucose (UA) (Negative) Urine Ketones (Negative) Urine Blood (Negative) Urine Nitrite (Negative) Urine Bilirubin (Negative) Urine Urobilinogen (<2.0) mg/dL Ur Leukocyte Esterase (Negative) Urine RBC (0-5) /hpf Urine WBC (0-5) /hpf Ur Squamous Epith Cells (0-4) /hpf Amorphous Sediment (None) /hpf Urine Mucus (None) /hpf Urine Yeast (Budding) (None) /hpf Urine HCG, Qual Not Detected (Not Detectd) Disposition Clinical Impression: Kidney stone on left side, Hematuria, Yeast detected, Leukocytosis, History of PCOS Disposition: HOME SELF-CARE Condition: Fair Instructions (If sedation given, give patient instructions): Kidney Stones (ED) Prescriptions: Tamsulosin [Flomax] 0.4 mg PO DAILY 10 Days #10 cap Ibuprofen [Motrin] 800 mg PO Q8H 7 Days #21 tab HYDROcodone/APAP 5-325MG [[place] 5-325] 1 tab PO Q6HR PRN 3 Days #12 tab PRN Reason: Pain Ondansetron Odt [Zofran Odt] 4 mg PO Q8HR PRN 3 Days #9 tab PRN Reason: Nausea Is patient prescribed a controlled substance at d/c from ED?: Yes If prescribed controlled substance>3 days was MAPS reviewed?: Prescribed <3 Days Referrals: Hailey Whalen MD [Primary Care Provider] - 1-2 days Bryan Pickard MD [STAFF PHYSICIAN] - 1-2 days
[2021-01-10 23:13] VITALS: BP 149/92; PULSE 82
== END 2021-01-10 23:13 | disposition home or self-care (01) ==
LOC: EC 19:26
DX: N20.0 Calculus of kidney (principal); D72.829 Elevated white blood cell count, unspecified; I10 Essential (primary) hypertension; J45.909 Unspecified asthma, uncomplicated; K21.9 Gastro-esophageal reflux disease without esophagitis; E66.9 Obesity, unspecified; Z87.42 Personal history of other diseases of the female genital tract; Z87.442 Personal history of urinary calculi; Z79.1 Long term (current) use of non-steroidal anti-inflammatories (NSAID); Z79.84 Long term (current) use of oral hypoglycemic drugs; Z79.899 Other long term (current) drug therapy; Z90.49 Acquired absence of other specified parts of digestive tract; Z68.43 Body mass index [BMI] 50.0-59.9, adult
CPT/HCPCS: 36415; 80053; 83690; 85025; 81001; 81025; 93975; 76830; 76770; 99284; 96374; 96375 ×3; 96361; J1200; J2405; J1885

== ENCOUNTER 2021-02-08 00:20 | Emergency (ER) | payer OTHER ==
[2021-02-08 00:28] VITALS: TEMP 98.7
[2021-02-08] MEDS ORDERED: FAMOTIDINE 20 MG/2 ML VIAL IV STA (00:39)
[2021-02-08] MEDS ORDERED: methylPREDNISolone SOD SUCCI 125 MG/2 ML VIAL IV STA (00:39)
[2021-02-08 00:58] VITALS: RESP 20
--- NOTE | 2021-02-08 01:45 | ED ---
General Adult HPI - General Chief complaint: Allergic Reaction Stated complaint: Tongue swelling Time Seen by Provider: 02/08/21 00:32 Source: patient, family Mode of arrival: ambulatory Limitations: no limitations - History of Present Illness Initial comments: 35 year-old female patient presents to the emergency department for evaluation of tongue swelling. Patient states she was just about to go to bed when she noticed her tongue felt weird. States she feels fullness and swelling on the left side and into her throat. States she feels like she has to swallow frequently. Reports dry mouth. Denies any difficulty breathing. Denies rash or itching. Denies any known new exposures. States she did have similar symptoms about a month ago and they were unable to find a cause. She denies fever or chills. Denies injury to the tongue. Denies any abdominal pain, nausea, or vomiting. - Related Data Home Medications Medication Instructions Recorded Confirmed Pnv,Calcium 72/Iron/Folic Acid 1 tab PO HS 10/28/14 01/10/21 [ Plus Tablet] metFORMIN HCL [Glucophage] 500 mg PO BID 07/29/15 01/10/21 Ferrous Sulfate [Feosol] 325 mg PO DAILY 01/10/21 01/10/21 Phentermine HCl [Adipex-P] 37.5 mg PO DAILY 01/10/21 01/10/21 Previous Rx's Medication Instructions Recorded amLODIPine [Norvasc] 5 mg PO DAILY tab 08/25/20 HYDROcodone/APAP 5-325MG [[place] 1 tab PO Q6HR PRN 3 Days #12 tab 01/10/21 5-325] Ibuprofen [Motrin] 800 mg PO Q8H 7 Days #21 tab 01/10/21 Ondansetron Odt [Zofran Odt] 4 mg PO Q8HR PRN 3 Days #9 tab 01/10/21 Tamsulosin [Flomax] 0.4 mg PO DAILY 10 Days #10 cap 01/10/21 Famotidine [Pepcid] 20 mg PO DAILY #3 tablet 02/08/21 predniSONE 50 mg PO DAILY #3 tab 02/08/21 Allergies Allergy/AdvReac Type Severity Reaction Status Date / Time No Known Allergies Allergy Verified 02/08/21 00:28 Review of Systems ROS Statement: Those systems with pertinent positive or pertinent negative responses have been documented in the HPI. ROS Other: All systems not noted in ROS Statement are negative. Past Medical History Past Medical History: Asthma, GERD/Reflux, Hypertension Additional Past Medical History / Comment(s): pcos, HTN during History of Any Multi-Drug Resistant Organisms: None Reported Past Surgical History: Appendectomy, Section, Cholecystectomy Additional Past Surgical History / Comment(s): 5 years ago lithotripsy Past Anesthesia/Blood Transfusion Reactions: No Reported Reaction Past Psychological History: No Psychological Hx Reported Smoking Status: Never smoker Past Alcohol Use History: Occasional Past Drug Use History: None Reported - Past Family History Mother Family Medical History: Seizure Disorder Additional Family Medical History / Comment(s): Grand Mal Seizures, well controlled Father Family Medical History: Diabetes Mellitus, Hyperlipidemia General Exam Limitations: no limitations General appearance: alert, in no apparent distress, other (Physical well- developed, well-nourished adult female patient in no acute distress. Vital signs upon presentation are temperature 98.7F, pulse 109, respirations 22, blood pressure 214/137, pulse ox 97% on room air.) Eye exam: Present: normal appearance, PERRL, EOMI. Absent: scleral icterus, conjunctival injection, periorbital swelling ENT exam: Present: mucous membranes moist, other (There is swelling noted to the left side of the tongue. No wounds, no redness.). Absent: normal oropharynx Neck exam: Present: normal inspection. Absent: tenderness, meningismus, lymphadenopathy Respiratory exam: Present: normal lung sounds bilaterally. Absent: respiratory distress, wheezes, rales, rhonchi, stridor Cardiovascular Exam: Present: regular rate, normal rhythm, normal heart sounds. Absent: systolic murmur, diastolic murmur, rubs, gallop, clicks GI/Abdominal exam: Present: soft, normal bowel sounds. Absent: distended, tenderness, guarding, rebound, rigid Neurological exam: Present: alert, oriented X3, CN II-XII intact Psychiatric exam: Present: normal affect, normal mood Skin exam: Present: warm, dry, intact, normal color. Absent: rash Course Vital Signs 02/08/21 02/08/21 02/08/21 00:24 00:50 01:27 Temperature 98.7 F Pulse Rate 109 H 96 Respiratory 22 20 20 Rate Blood Pressure 214/137 165/115 O2 Sat by Pulse 97 95 Oximetry Medical Decision Making - Medical Decision Making 35 year-old female patient presents to the emergency department today for evaluation of left-sided tongue swelling and throat fullness. Physical examination did reveal swelling to the tongue. No evidence for infection. She is afebrile. Blood pressure is somewhat elevated. She was given IV dose of Solu-Medrol and Pepcid here in the department. She did take Benadryl 50 mg at home prior to arrival. Upon reevaluation she reports no worsening in symptoms. States her total bili is slightly improved. I did offer admission for observation. Patient would rather be discharged home. States she was very close to the hospital return if things worsen. She is given prescription for prednisone and Pepcid. Return parameters were discussed in detail. She verbalizes understanding and agrees with this plan. Case discussed with my attending Dr. Yañez. Disposition Clinical Impression: Tongue swelling, Angioedema Disposition: HOME SELF-CARE Condition: Good Instructions (If sedation given, give patient instructions): Angioedema (ED) Additional Instructions: Follow-up through primary care physician for recheck tomorrow. Take steroids as directed. Return to the emergency department immediately if symptoms worsen. Prescriptions: Famotidine [Pepcid] 20 mg PO DAILY #3 tablet predniSONE 50 mg PO DAILY #3 tab Is patient prescribed a controlled substance at d/c from ED?: No Referrals: Hailey Whalen MD [Primary Care Provider] - 1-2 days Time of Disposition: 02:03
[2021-02-08 01:47] VITALS: BP 165/115; PULSE 96
== END 2021-02-08 02:18 | disposition home or self-care (01) ==
LOC: EC 00:20
DX: T78.3XXA Angioneurotic edema, initial encounter (principal); R22.0 Localized swelling, mass and lump, head; J45.909 Unspecified asthma, uncomplicated; I10 Essential (primary) hypertension; K21.9 Gastro-esophageal reflux disease without esophagitis
CPT/HCPCS: 99283; 96374; 96375; J2930

== ENCOUNTER 2022-02-26 06:34 | Emergency (ER) | payer OTHER ==
[2022-02-26 06:40] VITALS: BP 131/83; PULSE 81; RESP 22; TEMP 97.7
[2022-02-26 09:26] LABS: Appearance,Urine Clear (Clear); Bacteria,Urine Rare /hpf; Bilirubin,Urine Negative (Negative); Blood,Urine Negative (Negative); Color,Urine Yellow; Glucose,Urine (UA) Negative (Negative); Ketones,Urine Negative (Negative); Leukocyte Esterase,Urine Negative (Negative); Mucus,Urine Moderate /hpf; Nitrite,Urine Negative (Negative); Protein,Urine 1+ (Negative); RBC,Urine 4 /hpf (0-5); Specific Gravity,Urine 1.023 (1.001-1.035); Squamous Epithelial Cell,Urine <1 /hpf (0-4); Urobilinogen,Urine <2.0 mg/dL (<2.0); WBC,Urine 2 /hpf (0-5)
[2022-02-26 09:27] LABS: Basophils # (A) 0.1 k/uL (0-0.2); Basophils % (A) 1 %; Eosinophils # (A) 0.5 k/uL (0-0.7); Eosinophils % (A) 4 %; HCT 47.2 % (34.0-46.0); HGB 14.9 gm/dL (11.4-16.0); Lymphocytes # (A) 2.1 k/uL (1.0-4.8); Lymphocytes % (A) 18 %; MCH 28.1 pg (25.0-35.0); MCHC 31.7 g/dL (31.0-37.0); MCV 88.8 fL (80.0-100.0); Mean Platelet Volume 6.7; Monocytes # (A) 0.5 k/uL (0-1.0); Monocytes % (A) 4 %; Neutrophils # (A) 8.5 k/uL (1.3-7.7); Neutrophils % (A) 72 %; Platelet Count 381 k/uL (150-450); RBC 5.31 m/uL (3.80-5.40); RDW 12.9 % (11.5-15.5); WBC 11.9 k/uL (3.8-10.6)
[2022-02-26 09:37] LABS: ALT 70 U/L (4-34); AST 67 U/L (14-36); African American GFR (CKD) >90 (>60 ml/min/1.73 sqM); Albumin 4.4 g/dL (3.5-5.0); Alkaline Phosphatase 99 U/L (38-126); Anion Gap 11 mmol/L; Blood Urea Nitrogen 15 mg/dL (7-17); Calcium 9.5 mg/dL (8.4-10.2); Carbon Dioxide 27 mmol/L (22-30); Chloride 101 mmol/L (98-107); Glucose 114 mg/dL (74-99); Non-African American GFR(CKD) >90 (>60 ml/min/1.73 sqM); Potassium 4.8 mmol/L (3.5-5.1); Sodium 139 mmol/L (137-145); Total Bilirubin 0.5 mg/dL (0.2-1.3); Total Protein 7.4 g/dL (6.3-8.2)
[2022-02-26] MEDS ORDERED: SODIUM CHLORIDE 0.9% 1,000 ML IV STA (11:06)
[2022-02-26] MEDS ORDERED: KETOROLAC 15 MG/ML 1 ML VIAL IVP STA (11:17)
[2022-02-26] MEDS ORDERED: ONDANSETRON 4 MG/2 ML VIAL IVP STA (11:17)
--- NOTE | 2022-02-26 11:27 | ED ---
Abdominal Pain HPI - General Chief Complaint: Abdominal Pain Stated Complaint: abd pain Time Seen by Provider: 02/26/22 11:06 Source: patient, family, RN notes reviewed Mode of arrival: ambulatory Limitations: no limitations - History of Present Illness Initial Comments: Patient is a 36-year-old female presenting to the emergency room with complaints of sudden onset of sharp lower pelvic region pain earlier this morning with dysuria. She reports the pain in the pelvic region is not as sharp as it initially was at this time however she now is having pain in her left flank region as well. She reports no gross hematuria or decreased urine output but does note some increased concentration to her urine. She has a known history of kidney stones needing lithotripsy once in the past. She is complaining of mild nausea without any vomiting. She denies any chest pain, shortness of breath, right flank pain, changes in bowels, fevers or chills. As noted above she has past medical history significant for kidney stones; she also has a past medical history significant for hypertension, asthma, GERD and PCOS. She reports that her pain is similar to her previous kidney stones and not similar to her previous PCO S symptoms with ovarian cyst ruptures. - Related Data Home Medications Medication Instructions Recorded Confirmed metFORMIN HCL [Glucophage] 500 mg PO BID 07/29/15 02/26/22 Ferrous Sulfate [Feosol] 325 mg PO DAILY 01/10/21 02/26/22 Cephalexin [Keflex] 500 mg PO Q6H 02/26/22 02/26/22 Previous Rx's Medication Instructions Recorded amLODIPine [Norvasc] 5 mg PO DAILY tab 08/25/20 Allergies Allergy/AdvReac Type Severity Reaction Status Date / Time No Known Allergies Allergy Verified 02/26/22 12:32 Review of Systems ROS Statement: Those systems with pertinent positive or pertinent negative responses have been documented in the HPI. ROS Other: All systems not noted in ROS Statement are negative. Past Medical History Past Medical History: Asthma, GERD/Reflux, Hypertension Additional Past Medical History / Comment(s): pcos, HTN during History of Any Multi-Drug Resistant Organisms: None Reported Past Surgical History: Appendectomy, Section, Cholecystectomy Additional Past Surgical History / Comment(s): 5 years ago lithotripsy Past Anesthesia/Blood Transfusion Reactions: No Reported Reaction Past Psychological History: No Psychological Hx Reported Smoking Status: Never smoker Past Alcohol Use History: Occasional Past Drug Use History: None Reported - Past Family History Mother Family Medical History: Seizure Disorder Additional Family Medical History / Comment(s): Grand Mal Seizures, well controlled Father Family Medical History: Diabetes Mellitus, Hyperlipidemia General Exam Limitations: no limitations General appearance: alert, in no apparent distress, obese Head exam: Present: atraumatic, normocephalic, normal inspection Eye exam: Present: normal appearance, PERRL, EOMI. Absent: scleral icterus, conjunctival injection, periorbital swelling ENT exam: Present: normal exam, mucous membranes moist Neck exam: Present: normal inspection Respiratory exam: Present: normal lung sounds bilaterally. Absent: respiratory distress, wheezes, rales, rhonchi, stridor Cardiovascular Exam: Present: regular rate, normal rhythm, normal heart sounds. Absent: systolic murmur, diastolic murmur, rubs, gallop, clicks GI/Abdominal exam: Present: soft, normal bowel sounds. Absent: distended, tenderness, guarding, rebound, rigid Rectal exam: Present: deferred Extremities exam: Present: normal inspection. Absent: pedal edema, joint swelling Back exam: Present: normal inspection, full ROM. Absent: CVA tenderness (R), CVA tenderness (L) Neurological exam: Present: alert, oriented X3, CN II-XII intact Psychiatric exam: Present: normal affect, normal mood Skin exam: Present: warm, dry, intact, normal color. Absent: rash Course Vital Signs 02/26/22 06:36 Temperature 97.7 F Pulse Rate 81 Respiratory 22 Rate Blood Pressure 131/83 O2 Sat by Pulse 95 Oximetry Medical Decision Making - Medical Decision Making 36-year-old female presenting to the emergency room with sudden onset of pelvic region pain with radiation to her left flank. Known history of kidney stones along with PCO S. Will check CBC, CMP, and urinalysis. Due to sudden onset of pain will also check CT of the abdomen without contrast. Will give IV hydration along with Zofran for nausea and Toradol for pain. Will monitor response. Urinalysis with protein, mucus and rare bacteria no evidence of hematuria or casts. CMP reveals mildly elevated liver enzymes likely secondary to fatty liver given body habitus. Glucose mildly elevated at 117 no other anomalies and CMP. CBC reveals mild leukocytosis with slightly elevated neutrophils. Pain improved with IV hydration and Toradol. Nausea improved with Zofran no emesis. Computed tomography scan negative for acute findings. No acute findings to correlate for patient's symptoms at this time. Encouraged good hydration and use of anti-inflammatories as needed for pain. Will discharge home. Encouraged follow-up with her primary care provider. Case discussed with Dr. Travis. - Lab Data Result diagrams: 02/26/22 08:48 02/26/22 08:48 Lab Results 02/26/22 02/26/22 02/26/22 Range/Units 08:48 08:48 08:48 WBC 11.9 H (3.8-10.6) k/uL RBC 5.31 (3.80-5.40) m/uL Hgb 14.9 (11.4-16.0) gm/dL Hct 47.2 H (34.0-46.0) % MCV 88.8 (80.0-100.0) fL MCH 28.1 (25.0-35.0) pg MCHC 31.7 (31.0-37.0) g/dL RDW 12.9 (11.5-15.5) % Plt Count 381 (150-450) k/uL MPV 6.7 Neutrophils % 72 % Lymphocytes % 18 % Monocytes % 4 % Eosinophils % 4 % Basophils % 1 % Neutrophils # 8.5 H (1.3-7.7) k/uL Lymphocytes # 2.1 (1.0-4.8) k/uL Monocytes # 0.5 (0-1.0) k/uL Eosinophils # 0.5 (0-0.7) k/uL Basophils # 0.1 (0-0.2) k/uL Sodium (137-145) mmol/L Potassium (3.5-5.1) mmol/L Chloride (98-107) mmol/L Carbon Dioxide (22-30) mmol/L Anion Gap mmol/L BUN (7-17) mg/dL Creatinine (0.52-1.04) mg/dL Est GFR (CKD-EPI)AfAm (>60 ml/min/1.73 sqM) Est GFR (CKD-EPI)NonAf (>60 ml/min/1.73 sqM) Glucose (74-99) mg/dL Calcium (8.4-10.2) mg/dL Total Bilirubin (0.2-1.3) mg/dL AST (14-36) U/L ALT (4-34) U/L Alkaline Phosphatase (38-126) U/L Total Protein (6.3-8.2) g/dL Albumin (3.5-5.0) g/dL Urine Color Yellow Urine Appearance Clear (Clear) Urine pH 6.0 (5.0-8.0) Ur Specific [place] 1.023 (1.001-1.035) Urine Protein 1+ H (Negative) Urine Glucose (UA) Negative (Negative) Urine Ketones Negative (Negative) Urine Blood Negative (Negative) Urine Nitrite Negative (Negative) Urine Bilirubin Negative (Negative) Urine Urobilinogen <2.0 (<2.0) mg/dL Ur Leukocyte Esterase Negative (Negative) Urine RBC 4 (0-5) /hpf Urine WBC 2 (0-5) /hpf Ur Squamous Epith Cells <1 (0-4) /hpf Urine Bacteria Rare H (None) /hpf Urine Mucus Moderate H (None) /hpf Urine HCG, Qual Not Detected (Not Detectd) 02/26/22 Range/Units 08:48 WBC (3.8-10.6) k/uL RBC (3.80-5.40) m/uL Hgb (11.4-16.0) gm/dL Hct (34.0-46.0) % MCV (80.0-100.0) fL MCH (25.0-35.0) pg MCHC (31.0-37.0) g/dL RDW (11.5-15.5) % Plt Count (150-450) k/uL MPV Neutrophils % % Lymphocytes % % Monocytes % % Eosinophils % % Basophils % % Neutrophils # (1.3-7.7) k/uL Lymphocytes # (1.0-4.8) k/uL Monocytes # (0-1.0) k/uL Eosinophils # (0-0.7) k/uL Basophils # (0-0.2) k/uL Sodium 139 (137-145) mmol/L Potassium 4.8 (3.5-5.1) mmol/L Chloride 101 (98-107) mmol/L Carbon Dioxide 27 (22-30) mmol/L Anion Gap 11 mmol/L BUN 15 (7-17) mg/dL Creatinine 0.64 (0.52-1.04) mg/dL Est GFR (CKD-EPI)AfAm >90 (>60 ml/min/1.73 sqM) Est GFR (CKD-EPI)NonAf >90 (>60 ml/min/1.73 sqM) Glucose 114 H (74-99) mg/dL Calcium 9.5 (8.4-10.2) mg/dL Total Bilirubin 0.5 (0.2-1.3) mg/dL AST 67 H (14-36) U/L ALT 70 H (4-34) U/L Alkaline Phosphatase 99 (38-126) U/L Total Protein 7.4 (6.3-8.2) g/dL Albumin 4.4 (3.5-5.0) g/dL Urine Color Urine Appearance (Clear) Urine pH (5.0-8.0) Ur Specific [place] (1.001-1.035) Urine Protein (Negative) Urine Glucose (UA) (Negative) Urine Ketones (Negative) Urine Blood (Negative) Urine Nitrite (Negative) Urine Bilirubin (Negative) Urine Urobilinogen (<2.0) mg/dL Ur Leukocyte Esterase (Negative) Urine RBC (0-5) /hpf Urine WBC (0-5) /hpf Ur Squamous Epith Cells (0-4) /hpf Urine Bacteria (None) /hpf Urine Mucus (None) /hpf Urine HCG, Qual (Not Detectd) - Radiology Data Radiology results: report reviewed, image reviewed CT the abdomen and pelvis without contrast shows no renal stones hydronephrosis seen, no acute findings are evident Disposition Clinical Impression: Abdominal pain Disposition: HOME SELF-CARE Condition: Stable Instructions (If sedation given, give patient instructions): Abdominal Pain (ED) Additional Instructions: Please drink plenty of fluids. Utilize ibuprofen as needed for pain. Please follow up with your primary care provider. Please return to the Emergency Department if symptoms worsen or any other concerns. Is patient prescribed a controlled substance at d/c from ED?: No Referrals: Hailey Whalen MD [Primary Care Provider] - 1-2 days Time of Disposition: 14:42
--- NOTE | 2022-02-26 13:54 | CT ---
EXAMINATION TYPE: CT abdomen pelvis wo con DATE OF EXAM: 02/26/2022 HISTORY: PAIN left flank. History of polycystic ovarian syndrome. History of kidney stones. CT DLP: 2579.9 mGycm. Automated Exposure Control for Dose Reduction was Utilized. TECHNIQUE: CT scan of the abdomen and pelvis is performed without oral or IV contrast. COMPARISON: Prior CT abdomen and pelvis report May 03, 2019. PACS downtime cannot review prior i mages FINDINGS: Within the limitations of a non-contrast study, the following observations are made. LUNG BASES: No significant abnormality is appreciated. LIVER/GB: Visualized liver heterogeneously hypodense consistent with fatty infiltrative hepatocellula r disease similar to prior report. Cholecystectomy clips are redemonstrated. No biliary dilatation. P rominent right hepatic lobe noted. PANCREAS: No significant abnormality is seen. SPLEEN: No significant abnormality is seen. ADRENALS: No significant abnormality is seen. KIDNEYS: No renal stones or hydronephrosis seen bilaterally. There is low positioned retroaortic left renal vein which is normal variant. BOWEL: Surgical changes from appendectomy seen at base of cecum. No suspicious small or large bowel d ilatation. GENITAL ORGANS: Anteverted uterus. Left ovary normal in size axial image 103. Right ovary is likely n ormal in size blending with small bowel loops axial image 98. No suspicious adnexal masses. LYMPH NODES: No greater than 1cm abdominal or pelvic lymph nodes are appreciated. OSSEOUS STRUCTURES: No significant abnormality is seen. OTHER: No significant additional abnormality is seen. IMPRESSION: No renal stones or hydronephrosis is seen bilaterally. No acute findings are evident.
== END 2022-02-26 15:15 | disposition home or self-care (01) ==
LOC: EC 06:34
DX: R10.2 Pelvic and perineal pain (principal); R74.8 Abnormal levels of other serum enzymes; D72.829 Elevated white blood cell count, unspecified; J45.909 Unspecified asthma, uncomplicated; I10 Essential (primary) hypertension; Z87.442 Personal history of urinary calculi; Z90.49 Acquired absence of other specified parts of digestive tract
CPT/HCPCS: 99284 ×2; 96375 ×2; 96361 ×2; 96374; 36415; 80053; 85025; 81001; 81025; 74176; J2405; J1885

== ENCOUNTER 2023-06-07 04:56 | Emergency (ER) | payer BC, OTHER ==
[2023-06-07 05:05] VITALS: RESP 18
[2023-06-07] MEDS ORDERED: MORPHINE SULFATE 4 MG/ML SYRINGE IV STA ×2 (05:25→07:30)
[2023-06-07] MEDS ORDERED: ONDANSETRON 4 MG/2 ML VIAL IVP STA (05:25)
[2023-06-07] MEDS ORDERED: SODIUM CHLORIDE 0.9% 500 ML 500 ML IV STA (05:25)
--- NOTE | 2023-06-07 05:27 | ED ---
Abdominal Pain HPI - General Source: patient Mode of arrival: wheelchair Limitations: no limitations - History of Present Illness MD Complaint: abdominal pain Onset/Timin -: hour(s) Location: LLQ, RLQ Radiation: none Migration to: no migration Severity: severe Quality: sharp Consistency: constant Improves With: nothing Worsens With: nothing Associated Symptoms: nausea <Griffin Coffman - Last Filed: 06/07/23 07:30> <Nathan Richardson - Last Filed: 06/07/23 08:29> - General Chief Complaint: Abdominal Pain Stated Complaint: Abdominal Pain, Nausea Time Seen by Provider: 06/07/23 05:16 - History of Present Illness Initial Comments: this patient is a 37-year-old woman who arrives to have evaluation of bilateral lower quadrant abdominal pain. Patient states that she had gone to bed feeling well and then awakened approximately one hour ago now with sharp bilateral lower quadrant pains. She states the pains remind her of when she had a previous kidney stone. She did have some nausea and a little bit of discomfort with urination but otherwise no accompanying symptoms. (Griffin Coffman) - Related Data Home Medications Medication Instructions Recorded Confirmed metFORMIN HCL [Glucophage] 500 mg PO BID 07/29/15 02/26/22 Ferrous Sulfate [Feosol] 325 mg PO DAILY 01/10/21 02/26/22 Cephalexin [Keflex] 500 mg PO Q6H 02/26/22 02/26/22 Previous Rx's Medication Instructions Recorded amLODIPine [Norvasc] 5 mg PO DAILY tab 08/25/20 Ciprofloxacin HCl [Cipro] 500 mg PO BID 1 Days #14 tab 06/07/23 metroNIDAZOLE [Flagyl] 500 mg PO TID #21 tab 06/07/23 Allergies Allergy/AdvReac Type Severity Reaction Status Date / Time No Known Allergies Allergy Verified 02/26/22 12:32 Review of Systems ROS Other: All systems not noted in ROS Statement are negative. Constitutional: Denies: fever, chills Respiratory: Denies: cough, dyspnea Cardiovascular: Denies: chest pain, palpitations, edema Gastrointestinal: Reports: abdominal pain, nausea. Denies: vomiting, diarrhea, constipation, melena, hematochezia Genitourinary: Reports: dysuria. Denies: frequency, hematuria Musculoskeletal: Denies: back pain Skin: Denies: rash Neurological: Denies: headache, weakness <Griffin Coffman - Last Filed: 06/07/23 07:30> ROS Other: All systems not noted in ROS Statement are negative. <Nathan Richardson - Last Filed: 06/07/23 08:29> ROS Statement: Those systems with pertinent positive or pertinent negative responses have been documented in the HPI. Past Medical History Past Medical History: Asthma, GERD/Reflux, Hypertension Additional Past Medical History / Comment(s): pcos, HTN during History of Any Multi-Drug Resistant Organisms: None Reported Past Surgical History: Appendectomy, Section, Cholecystectomy Additional Past Surgical History / Comment(s): 5 years ago lithotripsy Past Anesthesia/Blood Transfusion Reactions: No Reported Reaction Past Psychological History: No Psychological Hx Reported Smoking Status: Never smoker Past Alcohol Use History: Occasional Past Drug Use History: None Reported - Past Family History Mother Family Medical History: Seizure Disorder Additional Family Medical History / Comment(s): Grand Mal Seizures, well controlled Father Family Medical History: Diabetes Mellitus, Hyperlipidemia <Griffin Coffman - Last Filed: 06/07/23 07:30> General Exam Limitations: no limitations General appearance: alert, in no apparent distress Head exam: Present: atraumatic, normocephalic Eye exam: Present: normal appearance. Absent: scleral icterus, conjunctival injection Neck exam: Present: normal inspection Respiratory exam: Present: normal lung sounds bilaterally. Absent: respiratory distress, wheezes, rales, rhonchi, stridor Cardiovascular Exam: Present: regular rate, normal rhythm, normal heart sounds. Absent: systolic murmur, diastolic murmur, rubs, gallop GI/Abdominal exam: Present: soft, tenderness. Absent: distended, guarding, rebound, rigid, mass Extremities exam: Present: normal inspection, normal capillary refill. Absent: pedal edema, calf tenderness Back exam: Present: normal inspection. Absent: CVA tenderness (R), CVA tend erness (L) Neurological exam: Present: alert Skin exam: Present: warm, dry, intact, normal color. Absent: rash <Griffin Coffman - Last Filed: 06/07/23 07:30> Course Vital Signs 06/07/23 06/07/23 04:57 08:00 Temperature 97.7 F 98.7 F Pulse Rate 84 107 H Respiratory 18 18 Rate Blood Pressure 133/84 137/76 O2 Sat by Pulse 98 104 H Oximetry Medical Decision Making - Lab Data Result diagrams: 06/07/23 05:30 06/07/23 05:30 <Griffin Coffman - Last Filed: 06/07/23 07:30> - Lab Data Result diagrams: 06/07/23 05:30 06/07/23 05:30 <Nathan Richardson - Last Filed: 06/07/23 08:29> - Medical Decision Making Was pt. sent in by a medical professional or institution (, PA, SALES REVIEW CLERK, urgent care, hospital, or longterm...) When possible be specific @ -[No] Did you speak to anyone other than the patient for history (EMS, parent, family, police, friend...)? What history was obtained from this source @ -[the patient's did give some history Did you review nursing and triage notes (agree or disagree)? Why? @ -[I reviewed and agree with nursing and triage notes] Were old charts reviewed (outside hosp., previous admission, EMS record, old EKG, old radiological studies, urgent care reports/EKG's, longterm records)? Report findings @ -[No old charts were reviewed] Differential Diagnosis (chest pain, altered mental status, abdominal pain women, abdominal pain men, vaginal bleeding, weakness, fever, dyspnea, syncope, headache, dizziness, GI bleed, back pain, seizure, CVA, palpatations, mental health, musculoskeletal)? @ -[Differential Abdominal Pain Women: Appendicitis, Cholecystitis, diverticulosis, ischemic bowel, pancreatitis, hepatitis, UTI, gastroenteritis, AAA, incarcerated hernia, bowel obstruction, constipation, inflammatory bowel, hepatitis, peptic ulcer disease, splenic infarction, perforated viscus, vulvitis, ovarian torsion, PID, kidney stone, placenta abruption, this is not meant to be an all-inclusive list EKG interpreted by me (3pts min.). @ -[As above] X-rays interpreted by me (1pt min.). @ -[None done] CT interpreted by me (1pt min.). @ -[ U/S interpreted by me (1pt. min.). @ -[None done] What testing was considered but not performed or refused? (CT, X-rays, U/S, labs)? Why? @ -[None] What meds were considered but not given or refused? Why? @ -[None] Did you discuss the management of the patient with other professionals (professionals i.e. DrMariella, PA, SALES REVIEW CLERK, lab, RT, psych nurse, social sciences lecturer, plastics bench mechanic, teacher, collections officer, high risk case manager)? Give summary @ -[No] Was smoking cessation discussed for >3mins.? @ -[No] Was critical care preformed (if so, how long)? @ -[No] Were there social determinants of health that impacted care today? How? (Homelessness, low income, unemployed, alcoholism, drug addiction, transportation, low edu. Level, literacy, decrease access to med. care, retirement, rehab)? @ -[No] Was there de-escalation of care discussed even if they declined (Discuss DNR or withdrawal of care, Hospice)? DNR status @ -[No] What co-morbidities impacted this encounter? (DM, HTN, Smoking, COPD, CAD, Cancer, CVA, ARF, Chemo, Hep., AIDS, mental health diagnosis, sleep apnea, morbid obesity)? @ -[None] Was patient admitted / discharged? Hospital course, mention meds given and route, prescriptions, significant lab abnormalities, going to OR and other pertinent info. @ -[the patient is pending computed tomography scan at the time of shift change (Griffin Coffman) Computed tomography scan of abdomen and pelvis shows mild fat stranding mesenteric of the lower abdomen. This was interpreted by myself. Patient reevaluated by myself, Dr. Richardson. Patient resting comfortably in bed. Abdomen soft and nontender. Case was discussed with on-call surgeon, Dr. Gregory, who does recommend discharge with Cipro and Mara. Patient reevaluated again and updated. Diagnosis: Abdominal pain, acute (Nathan Richardson) - Lab Data Lab Results 06/07/23 06/07/23 06/07/23 Range/Units 05:30 05:30 05:30 WBC 13.0 H (3.8-10.6) k/uL RBC 4.61 (3.80-5.40) m/uL Hgb 13.0 (11.4-16.0) gm/dL Hct 40.0 (34.0-46.0) % MCV 86.7 (80.0-100.0) fL MCH 28.3 (25.0-35.0) pg MCHC 32.6 (31.0-37.0) g/dL RDW 13.6 (11.5-15.5) % Plt Count 322 (150-450) k/uL MPV 7.1 Neutrophils % 74 % Lymphocytes % 18 % Monocytes % 3 % Eosinophils % 4 % Basophils % 0 % Neutrophils # 9.6 H (1.3-7.7) k/uL Lymphocytes # 2.3 (1.0-4.8) k/uL Monocytes # 0.4 (0-1.0) k/uL Eosinophils # 0.5 (0-0.7) k/uL Basophils # 0.0 (0-0.2) k/uL Sodium (137-145) mmol/L Potassium (3.5-5.1) mmol/L Chloride (98-107) mmol/L Carbon Dioxide (22-30) mmol/L Anion Gap mmol/L BUN (7-17) mg/dL Creatinine (0.52-1.04) mg/dL Est GFR (CKD-EPI)AfAm (>60 ml/min/1.73 sqM) Est GFR (CKD-EPI)NonAf (>60 ml/min/1.73 sqM) Glucose (74-99) mg/dL Calcium (8.4-10.2) mg/dL Total Bilirubin (0.2-1.3) mg/dL AST (14-36) U/L ALT (4-34) U/L Alkaline Phosphatase (38-126) U/L C-Reactive Protein (<1.0) mg/dL Total Protein (6.3-8.2) g/dL Albumin (3.5-5.0) g/dL Amylase (30-110) U/L Lipase (23-300) U/L Urine Color Colorless Urine Appearance Cloudy H (Clear) Urine pH 7.0 (5.0-8.0) Ur Specific [place] 1.015 (1.001-1.035) Urine Protein Trace H (Negative) Urine Glucose (UA) Negative (Negative) Urine Ketones Negative (Negative) Urine Blood Negative (Negative) Urine Nitrite Negative (Negative) Urine Bilirubin Negative (Negative) Urine Urobilinogen <2.0 (<2.0) mg/dL Ur Leukocyte Esterase Trace H (Negative) Urine RBC 1 (0-5) /hpf Urine WBC 2 (0-5) /hpf Ur Squamous Epith Cells 3 (0-4) /hpf Amorphous Sediment Rare H (None) /hpf Urine Bacteria Rare H (None) /hpf Hyaline Casts 1 (0-2) /lpf Urine Mucus Rare H (None) /hpf Urine HCG, Qual Not Detected (Not Detectd) 06/07/23 Range/Units 05:30 WBC (3.8-10.6) k/uL RBC (3.80-5.40) m/uL Hgb (11.4-16.0) gm/dL Hct (34.0-46.0) % MCV (80.0-100.0) fL MCH (25.0-35.0) pg MCHC (31.0-37.0) g/dL RDW (11.5-15.5) % Plt Count (150-450) k/uL MPV Neutrophils % % Lymphocytes % % Monocytes % % Eosinophils % % Basophils % % Neutrophils # (1.3-7.7) k/uL Lymphocytes # (1.0-4.8) k/uL Monocytes # (0-1.0) k/uL Eosinophils # (0-0.7) k/uL Basophils # (0-0.2) k/uL Sodium 138 (137-145) mmol/L Potassium 3.9 (3.5-5.1) mmol/L Chloride 104 (98-107) mmol/L Carbon Dioxide 23 (22-30) mmol/L Anion Gap 11 mmol/L BUN 16 (7-17) mg/dL Creatinine 0.56 (0.52-1.04) mg/dL Est GFR (CKD-EPI)AfAm >90 (>60 ml/min/1.73 sqM) Est GFR (CKD-EPI)NonAf >90 (>60 ml/min/1.73 sqM) Glucose 177 H (74-99) mg/dL Calcium 9.0 (8.4-10.2) mg/dL Total Bilirubin 0.4 (0.2-1.3) mg/dL AST 23 (14-36) U/L ALT 24 (4-34) U/L Alkaline Phosphatase 111 (38-126) U/L C-Reactive Protein 3.7 H (<1.0) mg/dL Total Protein 6.8 (6.3-8.2) g/dL Albumin 3.8 (3.5-5.0) g/dL Amylase 42 (30-110) U/L Lipase 91 (23-300) U/L Urine Color Urine Appearance (Clear) Urine pH (5.0-8.0) Ur Specific [place] (1.001-1.035) Urine Protein (Negative) Urine Glucose (UA) (Negative) Urine Ketones (Negative) Urine Blood (Negative) Urine Nitrite (Negative) Urine Bilirubin (Negative) Urine Urobilinogen (<2.0) mg/dL Ur Leukocyte Esterase (Negative) Urine RBC (0-5) /hpf Urine WBC (0-5) /hpf Ur Squamous Epith Cells (0-4) /hpf Amorphous Sediment (None) /hpf Urine Bacteria (None) /hpf Hyaline Casts (0-2) /lpf Urine Mucus (None) /hpf Urine HCG, Qual (Not Detectd) Disposition <Griffin Coffman - Last Filed: 06/07/23 07:30> Is patient prescribed a controlled substance at d/c from ED?: No Time of Disposition: 08:29 <Nathan Richardson - Last Filed: 06/07/23 08:29> Clinical Impression: Abdominal pain Disposition: HOME SELF-CARE Condition: Stable Instructions (If sedation given, give patient instructions): Abdominal Pain (ED) Additional Instructions: Please do follow-up with your primary care physician in the next one or 2 days for recheck. Please have primary care physician review computed tomography scan she will need further testing, possibly urology follow-up as well. Return for fever, increased pain, nausea vomiting, worsening symptoms or any other concerns. Prescriptions have been sent to pharmacy. Prescriptions: Ciprofloxacin HCl [Cipro] 500 mg PO BID 1 Days #14 tab metroNIDAZOLE [Flagyl] 500 mg PO TID #21 tab Referrals: Geetha Stephens DO [Primary Care Provider] - 1-2 days
[2023-06-07 05:42] LABS: Basophils % (A) 0 %; Eosinophils # (A) 0.5 k/uL (0-0.7); Eosinophils % (A) 4 %; Lymphocytes # (A) 2.3 k/uL (1.0-4.8); Lymphocytes % (A) 18 %; MCH 28.3 pg (25.0-35.0); MCHC 32.6 g/dL (31.0-37.0); MCV 86.7 fL (80.0-100.0); Mean Platelet Volume 7.1; Monocytes # (A) 0.4 k/uL (0-1.0); Monocytes % (A) 3 %; Neutrophils # (A) 9.6 k/uL (1.3-7.7); Neutrophils % (A) 74 %; Platelet Count 322 k/uL (150-450); RBC 4.61 m/uL (3.80-5.40); RDW 13.6 % (11.5-15.5)
[2023-06-07 06:37] LABS: ALT 24 U/L (4-34); AST 23 U/L (14-36); African American GFR (CKD) >90 (>60 ml/min/1.73 sqM); Albumin 3.8 g/dL (3.5-5.0); Alkaline Phosphatase 111 U/L (38-126); Amylase 42 U/L (30-110); Anion Gap 11 mmol/L; Blood Urea Nitrogen 16 mg/dL (7-17); C Reactive Protein 3.7 mg/dL (<1.0); Carbon Dioxide 23 mmol/L (22-30); Chloride 104 mmol/L (98-107); Glucose 177 mg/dL (74-99); Lipase 91 U/L (23-300); Non-African American GFR(CKD) >90 (>60 ml/min/1.73 sqM); Potassium 3.9 mmol/L (3.5-5.1); Sodium 138 mmol/L (137-145); Total Bilirubin 0.4 mg/dL (0.2-1.3); Total Protein 6.8 g/dL (6.3-8.2)
[2023-06-07 06:53] LABS: Amorphous Sediment,Urine Rare /hpf; Appearance,Urine Cloudy (Clear); Bacteria,Urine Rare /hpf; Bilirubin,Urine Negative (Negative); Blood,Urine Negative (Negative); Color,Urine Colorless; Glucose,Urine (UA) Negative (Negative); Hyaline Casts,Urine 1 /lpf (0-2); Ketones,Urine Negative (Negative); Leukocyte Esterase,Urine Trace (Negative); Mucus,Urine Rare /hpf; Nitrite,Urine Negative (Negative); Protein,Urine Trace (Negative); RBC,Urine 1 /hpf (0-5); Specific Gravity,Urine 1.015 (1.001-1.035); Squamous Epithelial Cell,Urine 3 /hpf (0-4); Urobilinogen,Urine <2.0 mg/dL (<2.0); WBC,Urine 2 /hpf (0-5)
--- NOTE | 2023-06-07 08:01 | CT ---
EXAMINATION TYPE: CT abdomen pelvis wo con CT DLP: 2322.2 mGycm, Automated exposure control for dose reduction was used. DATE OF EXAM: 06/07/2023 7:51 AM COMPARISON: CT abdomen pelvis most recent from most recent 913 22 07/19 CLINICAL INDICATION:Female, 37 years old with history of low abdomen pain; Lower abdominal pain, naus ea. hx ovarian cysts, kidney stones TECHNIQUE: Axial CT abdomen pelvis wo con;Sagittal and coronal reformats were created on a separate workstation. Contrast used: mL of , (none if empty) Oral contrast used: without Oral Contrast (none if empty) FINDINGS: LOWER CHEST: Unremarkable ABDOMEN LIVER: Diffusely hypoattenuating parenchyma. GALLBLADDER AND BILE DUCTS: The gallbladder is surgically absent. PANCREAS: Unremarkable. SPLEEN: Unremarkable. ADRENAL GLANDS: Unremarkable. KIDNEYS AND URETERS: Dilation of the left collecting system extending inferiorly from the renal sinus which appears to terminate near the vessels near midline. There is poor visualization of the ureter after the 20. No evidence of hydronephrosis or renal calculus. The ureters are unremarkable. PELVIS BLADDER: Unremarkable REPRODUCTIVE: Unremarkable. ABDOMEN & PELVIS STOMACH AND BOWEL: Fat stranding changes are seen along the mesenteric fat in the lower abdomen. Aris evidence of bowel obstruction. The appendix is not visualized. PERITONEUM/RETROPERITONEUM: No evidence of pneumoperitoneum or free fluid. VASCULATURE: No evidence of aortic aneurysm. MUSCULOSKELETAL: No acute osseous abnormalities LYMPH NODES: No gross evidence for lymphadenopathy. SOFT TISSUE/ABDOMINAL WALL: Unremarkable IMPRESSION: 1. Mild anterior lower abdominal wall inflammation changes. Source is unclear correlate for enteriti s. 2. No evidence for renal calculus or calculus obstructing the collecting system. Dilated left collec ting system with higher density material within the collecting system. Findings similar back to at le ast 07/29/2015. Finding could represent stricture of the left renal collecting system. Consider CT uro gram on a outpatient basis for evaluation of the left ureter.
[2023-06-07] MEDS ORDERED: ACET/COD 300 MG/30 MG STARTER PACK 6 TAB BTL PO STA (08:29)
[2023-06-07 09:12] VITALS: BP 109/66; PULSE 92; TEMP 98.8
== END 2023-06-07 09:00 | disposition home or self-care (01) ==
LOC: EC 04:56
DX: R10.30 Lower abdominal pain, unspecified (principal); J45.909 Unspecified asthma, uncomplicated; I10 Essential (primary) hypertension
CPT/HCPCS: 36415; 80053; 82150; 83690; 85025; 86140; 81001; 81025; 74176; 99284; 96374; 96375; 96376; 96361; J2270; J2405

== ENCOUNTER 2024-03-31 03:28 | Emergency (ER) | payer BC ==
[2024-03-31 03:37] VITALS: TEMP 97.4
[2024-03-31 04:05] LABS: Basophils % (A) 0 %; Eosinophils # (A) 0.4 k/uL (0-0.7); Eosinophils % (A) 5 %; HCT 41.4 % (34.0-46.0); Hypochromasia Slight; Lymphocytes # (A) 2.7 k/uL (1.0-4.8); Lymphocytes % (A) 29 %; MCH 27.7 pg (25.0-35.0); MCHC 31.4 g/dL (31.0-37.0); MCV 88.2 fL (80.0-100.0); Mean Platelet Volume 6.7; Monocytes # (A) 0.4 k/uL (0-1.0); Monocytes % (A) 4 %; Neutrophils # (A) 5.2 k/uL (1.3-7.7); Neutrophils % (A) 57 %; Platelet Count 352 k/uL (150-450); RBC 4.69 m/uL (3.80-5.40); WBC 9.2 k/uL (3.8-10.6)
[2024-03-31 04:11] LABS: ALT 28 U/L (4-34); AST 29 U/L (14-36); African American GFR (CKD) >90 (>60 ml/min/1.73 sqM); Albumin 3.8 g/dL (3.5-5.0); Alkaline Phosphatase 95 U/L (38-126); Amylase 32 U/L (30-110); Anion Gap 5 mmol/L; Blood Urea Nitrogen 12 mg/dL (7-17); Calcium 9.2 mg/dL (8.4-10.2); Carbon Dioxide 25 mmol/L (22-30); Chloride 108 mmol/L (98-107); Glucose 172 mg/dL (74-99); Lipase 71 U/L (23-300); Non-African American GFR(CKD) >90 (>60 ml/min/1.73 sqM); Sodium 138 mmol/L (137-145); Total Bilirubin 0.5 mg/dL (0.2-1.3); Total Protein 6.5 g/dL (6.3-8.2)
[2024-03-31] MEDS: SODIUM CHLORIDE 0.9% 1,000 ML IV STA (04:13)
[2024-03-31] MEDS: HYDROmorphone 0.5 MG/0.5 ML SYRINGE IVP STA ×2 (04:15→06:32)
[2024-03-31] MEDS: KETOROLAC 15 MG/ML 1 ML VIAL IVP STA (04:16)
[2024-03-31] MEDS: ONDANSETRON 4 MG/2 ML VIAL IVP STA (04:18)
--- NOTE | 2024-03-31 04:29 | ED ---
General Adult HPI - General Chief complaint: Abdominal Pain Stated complaint: abd pain NV Time Seen by Provider: 03/31/24 03:44 Source: patient, RN notes reviewed, old records reviewed Mode of arrival: ambulatory Limitations: no limitations - History of Present Illness Initial comments: 38 yo female presenting for evaluation of lower abdominal pain and left flank pain. Pain began suddenly while the patient was sleeping. This was associated with nausea. She does have prior history of kidney stones. Patient denies urinary symptoms. Denies changes to her bowels. She denies current . - Related Data Home Medications Medication Instructions Recorded Confirmed metFORMIN HCL [Glucophage] 500 mg PO BID 07/29/15 02/26/22 Ferrous Sulfate [Feosol] 325 mg PO DAILY 01/10/21 02/26/22 Cephalexin [Keflex] 500 mg PO Q6H 02/26/22 02/26/22 Previous Rx's Medication Instructions Recorded amLODIPine [Norvasc] 5 mg PO DAILY tab 08/25/20 Ciprofloxacin HCl [Cipro] 500 mg PO BID 1 Days #14 tab 06/07/23 metroNIDAZOLE [Flagyl] 500 mg PO TID #21 tab 06/07/23 Cephalexin [Keflex] 500 mg PO TID 10 Days #30 cap 03/31/24 Allergies Allergy/AdvReac Type Severity Reaction Status Date / Time No Known Allergies Allergy Verified 03/31/24 03:37 Review of Systems ROS Statement: Those systems with pertinent positive or pertinent negative responses have been documented in the HPI. ROS Other: All systems not noted in ROS Statement are negative. Past Medical History Past Medical History: Asthma, GERD/Reflux, Hypertension Additional Past Medical History / Comment(s): pcos, HTN during History of Any Multi-Drug Resistant Organisms: None Reported Past Surgical History: Appendectomy, Section, Cholecystectomy Additional Past Surgical History / Comment(s): 5 years ago lithotripsy Past Anesthesia/Blood Transfusion Reactions: No Reported Reaction Past Psychological History: No Psychological Hx Reported Smoking Status: Never smoker Past Alcohol Use History: Occasional Past Drug Use History: None Reported - Past Family History Mother Family Medical History: Seizure Disorder Additional Family Medical History / Comment(s): Grand Mal Seizures, well controlled Father Family Medical History: Diabetes Mellitus, Hyperlipidemia General Exam Limitations: no limitations General appearance: alert, in no apparent distress Head exam: Present: atraumatic, normocephalic Eye exam: Present: normal appearance, PERRL ENT exam: Present: normal exam Neck exam: Present: normal inspection. Absent: tenderness, meningismus Respiratory exam: Present: normal lung sounds bilaterally. Absent: respiratory distress, wheezes Cardiovascular Exam: Present: regular rate, normal rhythm GI/Abdominal exam: Present: soft, tenderness. Absent: distended Extremities exam: Present: normal inspection, normal capillary refill Back exam: Present: CVA tenderness (L) Neurological exam: Present: alert, oriented X3 Psychiatric exam: Present: normal affect, normal mood Skin exam: Present: warm, dry, intact. Absent: cyanosis, diaphoretic Course Vital Signs 03/31/24 03/31/24 03:34 06:22 Temperature 97.4 F L Pulse Rate 83 65 Respiratory 18 16 Rate Blood Pressure 125/85 134/85 O2 Sat by Pulse 95 93 L Oximetry Medical Decision Making - Medical Decision Making Was pt. sent in by a medical professional or institution (, PA, AD WRITER, urgent care, hospital, or long term...) When possible be specific @ -No Did you speak to anyone other than the patient for history (EMS, parent, family, police, friend...)? What history was obtained from this source @ -No Did you review nursing and triage notes (agree or disagree)? Why? @ -I reviewed and agree with nursing and triage notes Were old charts reviewed (outside hosp., previous admission, EMS record, old EKG, old radiological studies, urgent care reports/EKG's, long term records)? Report findings @ -No old charts were reviewed Differential Abdominal Pain Women: Appendicitis, Cholecystitis, diverticulosis, ischemic bowel, pancreatitis, hepatitis, UTI, gastroenteritis, AAA, incarcerated hernia, bowel obstruction, constipation, inflammatory bowel, hepatitis, peptic ulcer disease, splenic infarction, perforated viscus, vulvitis, ovarian torsion, PID, kidney stone, placenta abruption, this is not meant to be an all-inclusive list EKG interpreted by me (3pts min.). @ -As above X-rays interpreted by me (1pt min.). @ -None done CT interpreted by me (1pt min.). @ -[CT negative for obstructing stone, no clearly identified process, possible cystitis. U/S interpreted by me (1pt. min.). @ -None done What testing was considered but not performed or refused? (CT, X-rays, U/S, labs)? Why? @ -None What meds were considered but not given or refused? Why? @ -None Did you discuss the management of the patient with other professionals (professionals i.e. , PA, AD WRITER, lab, RT, psych nurse, social work administrator, chief lifestyle officer, teacher, canine enforcement officer, director case)? Give summary @ -No Was smoking cessation discussed for >3mins.? @ -No Was critical care preformed (if so, how long)? @ -No Were there social determinants of health that impacted care today? How? (Homelessness, low income, unemployed, alcoholism, drug addiction, transportation, low edu. Level, literacy, decrease access to med. care, long term, rehab)? @ -No Was there de-escalation of care discussed even if they declined (Discuss DNR or withdrawal of care, Hospice)? DNR status @ -No What co-morbidities impacted this encounter? (DM, HTN, Smoking, COPD, CAD, Cancer, CVA, ARF, Chemo, Hep., AIDS, mental health diagnosis, sleep apnea, morbid obesity)? @ -[Kidney stones Was patient admitted / discharged? Hospital course, mention meds given and route, prescriptions, significant lab abnormalities, going to OR and other pertinent info. @ -38-year-old female presenting with left flank pain, lower abdominal pain. Vital signs stable. Patient has normal CBC, normal CMP, urinalysis is positive for UTI. Patient has CT evidence of likely cystitis. Given IV antibiotics, IV fluid and symptomatic treatment. Will be treated for UTI. Return parameters discussed. Undiagnosed new problem with uncertain prognosis? @ -[No Drug Therapy requiring intensive monitoring for toxicity (Heparin, Nitro, Insulin, Cardizem)? @ -No Were any procedures done? @ -No Diagnosis/symptom? @ -[Abdominal pain, UTI Acute, or Chronic, or Acute on Chronic? @ -Acute Uncomplicated (without systemic symptoms) or Complicated (systemic symptoms)? @ -Default Side effects of treatment? @ -No Exacerbation, Progression, or Severe Exacerbation? @ -No Poses a threat to life or bodily function? How? (Chest pain, [place], [place], pneumonia, PE, COPD, DKA, ARF, appy, cholecystitis, CVA, Diverticulitis, Homicidal, Suicidal, threat to staff... and all critical care pts) @ -Low risk at this time - Lab Data Result diagrams: 03/31/24 03:48 03/31/24 03:48 Lab Results 03/31/24 03/31/24 03/31/24 Range/Units 03:48 03:48 04:51 WBC 9.2 (3.8-10.6) k/uL RBC 4.69 (3.80-5.40) m/uL Hgb 13.0 (11.4-16.0) gm/dL Hct 41.4 (34.0-46.0) % MCV 88.2 (80.0-100.0) fL MCH 27.7 (25.0-35.0) pg MCHC 31.4 (31.0-37.0) g/dL RDW 14.0 (11.5-15.5) % Plt Count 352 (150-450) k/uL MPV 6.7 Neutrophils % 57 % Lymphocytes % 29 % Monocytes % 4 % Eosinophils % 5 % Basophils % 0 % Neutrophils # 5.2 (1.3-7.7) k/uL Lymphocytes # 2.7 (1.0-4.8) k/uL Monocytes # 0.4 (0-1.0) k/uL Eosinophils # 0.4 (0-0.7) k/uL Basophils # 0.0 (0-0.2) k/uL Hypochromasia Slight Sodium 138 (137-145) mmol/L Potassium 4.0 (3.5-5.1) mmol/L Chloride 108 H (98-107) mmol/L Carbon Dioxide 25 (22-30) mmol/L Anion Gap 5 mmol/L BUN 12 (7-17) mg/dL Creatinine 0.52 (0.52-1.04) mg/dL Est GFR (CKD-EPI)AfAm >90 (>60 ml/min/1.73 sqM) Est GFR (CKD-EPI)NonAf >90 (>60 ml/min/1.73 sqM) Glucose 172 H (74-99) mg/dL Calcium 9.2 (8.4-10.2) mg/dL Total Bilirubin 0.5 (0.2-1.3) mg/dL AST 29 (14-36) U/L ALT 28 (4-34) U/L Alkaline Phosphatase 95 (38-126) U/L Total Protein 6.5 (6.3-8.2) g/dL Albumin 3.8 (3.5-5.0) g/dL Amylase 32 (30-110) U/L Lipase 71 (23-300) U/L Urine Color Light Yellow Urine Appearance Cloudy H (Clear) Urine pH 6.0 (5.0-8.0) Ur Specific [place] 1.016 (1.001-1.035) Urine Protein Trace H (Negative) Urine Glucose (UA) Negative (Negative) Urine Ketones Negative (Negative) Urine Blood Negative (Negative) Urine Nitrite Negative (Negative) Urine Bilirubin Negative (Negative) Urine Urobilinogen <2.0 (<2.0) mg/dL Ur Leukocyte Esterase Large H (Negative) Urine RBC 3 (0-5) /hpf Urine WBC 36 H (0-5) /hpf Ur Squamous Epith Cells 7 H (0-4) /hpf Urine Bacteria Few H (None) /hpf Hyaline Casts 3 H (0-2) /lpf Urine Mucus Occasional H (None) /hpf Urine Yeast (Budding) Few H (None) /hpf Disposition Clinical Impression: Abdominal pain, UTI (urinary tract infection) Disposition: HOME SELF-CARE Condition: Fair Instructions (If sedation given, give patient instructions): Abdominal Pain (ED), Urinary Tract Infection in Women (ED) Prescriptions: Cephalexin [Keflex] 500 mg PO TID 10 Days #30 cap Is patient prescribed a controlled substance at d/c from ED?: No Referrals: Geetha Stephens DO [Primary Care Provider] - 1-2 days Time of Disposition: 06:38
[2024-03-31 05:14] LABS: Appearance,Urine Cloudy (Clear); Bacteria,Urine Few /hpf; Bilirubin,Urine Negative (Negative); Blood,Urine Negative (Negative); Budding Yeast,Urine Few /hpf; Color,Urine Light Yellow; Glucose,Urine (UA) Negative (Negative); Hyaline Casts,Urine 3 /lpf (0-2); Ketones,Urine Negative (Negative); Leukocyte Esterase,Urine Large (Negative); Mucus,Urine Occasional /hpf; Nitrite,Urine Negative (Negative); Protein,Urine Trace (Negative); RBC,Urine 3 /hpf (0-5); Specific Gravity,Urine 1.016 (1.001-1.035); Squamous Epithelial Cell,Urine 7 /hpf (0-4); Urobilinogen,Urine <2.0 mg/dL (<2.0); WBC,Urine 36 /hpf (0-5)
[2024-03-31 06:24] VITALS: RESP 16
--- NOTE | 2024-03-31 06:30 | CT ---
EXAM: CT Abdomen and Pelvis Without Intravenous Contrast CLINICAL HISTORY: ITS.REASON CT Reason: Left flank pain TECHNIQUE: Axial computed tomography images of the abdomen and pelvis without intravenous contrast. CTDI is 57.5 mGy and DLP is 3458 mGy-cm. This CT exam was performed using one or more of the following dose reduction techniques: automated exposure control, adjustment of the mA and/or kV according to patient size, and/or use of iterative reconstruction technique. COMPARISON: No relevant prior studies available. FINDINGS: Limitations: Limited evaluation in the absence of contrast. Lung bases: Mild dependent atelectatic changes within the lungs. ABDOMEN: Liver: Hepatic steatosis. Gallbladder and bile ducts: Cholecystectomy changes. No ductal dilation. Pancreas: Unremarkable. No ductal dilation. Spleen: Unremarkable. No splenomegaly. Adrenals: Unremarkable. No mass. Kidneys and ureters: No evidence of radiopaque renal calculi or signs of collecting system dilatation. Stomach and bowel: No evidence of bowel obstruction. No mucosal thickening. PELVIS: Appendix: Appendectomy changes. Bladder: Diffuse bladder wall thickening with adjacent stranding. This is slightly out of proportion for degree of under distention. Findings can be seen with cystitis. Consider correlation with laboratory values. No stones. Reproductive: Unremarkable as visualized. ABDOMEN and PELVIS: Intraperitoneal space: Unremarkable. No free air. No significant fluid collection. Bones/joints: Degenerative changes in the spine. No acute fracture. No dislocation. Soft tissues: Unremarkable. Vasculature: Unremarkable. No abdominal aortic aneurysm. Lymph nodes: Unremarkable. No enlarged lymph nodes. IMPRESSION: 1. No evidence of radiopaque renal calculi or signs of collecting system dilatation. 2. Diffuse bladder wall thickening with adjacent stranding. This is slightly out of proportion for degree of under distention. Findings can be seen with cystitis. Consider correlation with laboratory values. 3. No other acute findings. 4. Incidental findings as described.
[2024-03-31] MEDS: cefTRIAXone IN SWFI 1,000 MG/10 ML SYRINGE IVP STA (06:45)
[2024-03-31 06:53] VITALS: BP 135/79; PULSE 70
== END 2024-03-31 06:53 | disposition home or self-care (01) ==
LOC: EC 03:28
DX: N39.0 Urinary tract infection, site not specified (principal); Z90.49 Acquired absence of other specified parts of digestive tract
CPT/HCPCS: 36415; 80053; 82150; 83690; 85025; 81001; 74176; 99284; 96374; 96375 ×3; 96376; 96361; J2405; J0696; J1885; J1171

== ENCOUNTER 2024-08-29 08:48 | Emergency (ER) | payer BC ==
[2024-08-29 08:52] VITALS: RESP 20
[2024-08-29] MEDS: ACETAMINOPHEN TAB 500 MG TAB PO STA (09:15)
[2024-08-29] MEDS: IBUPROFEN 600 MG TAB PO STA (09:15)
[2024-08-29] MEDS: guaiFENesin-Coden 100-10MG/5ML 10 ML CUP PO STA (09:16)
--- NOTE | 2024-08-29 09:21 | XR ---
EXAMINATION TYPE: XR chest 2V DATE OF EXAM: 08/29/2024 9:13 AM COMPARISON: Chest radiographs from 08/25/2020. TECHNIQUE: XR chest 2V Frontal and lateral views of the chest. CLINICAL INDICATION:Female, 39 years old with history of cough; FINDINGS: Lungs/Pleura: There is no evidence of pleural effusion, focal consolidation, or pneumothorax. Pulmonary vascularity: Unremarkable. Heart/mediastinum: Cardiomediastinal silhouette is unremarkable. Musculoskeletal: No acute osseous pathology. IMPRESSION: No acute cardiopulmonary disease/process. [facility], , 08/29/2024 9:19 AM
[2024-08-29 09:32] LABS: Influenza A Detected (Not Detectd); Influenza B Not Detected (Not Detectd); RSV Not Detected (Not Detectd)
--- NOTE | 2024-08-29 09:41 | ED ---
URI HPI - General Chief Complaint: Upper Respiratory Infection Stated Complaint: cough Time Seen by Provider: 08/29/24 08:50 Source: patient, RN notes reviewed Mode of arrival: ambulatory Limitations: no limitations - History of Present Illness Initial Comments: 39-year-old female presents emergency department complaint of cough congestion fever chills body aches. She states that she has had a cough for several months been seeing her primary care physician for this but states that recent changes now she feels worse. Patient states that she hurts all over complains of headache and slightly productive cough. Mild nasal congestion no sore throat - Related Data Home Medications Medication Instructions Recorded Confirmed metFORMIN HCL [Glucophage] 500 mg PO BID 07/29/15 08/27/24 Cholecalciferol [Vitamin D3 (25 25 mcg PO DAILY 07/27/24 08/27/24 Mcg = 1000 Iu)] Ferrous Sulfate [Iron (65 MG 65 mg PO DAILY 07/27/24 08/27/24 Elemental)] Multivitamins, Thera [Multivitamin 1 tab PO DAILY 07/27/24 08/27/24 (formulary)] Fluticasone Propionate [Flonase 1 - 2 spray EA NOSTRIL DAILY PRN 08/27/24 08/27/24 Allergy Relief] Losartan Potassium 100 mg PO QAM 08/27/24 08/27/24 amLODIPine [Norvasc] 10 mg PO QAM 08/27/24 08/27/24 diphenhydrAMINE [Benadryl] 25 - 50 mg PO QID PRN 08/27/24 08/27/24 Previous Rx's Medication Instructions Recorded Oseltamivir [Tamiflu] 75 mg PO Q12HR #10 cap 08/29/24 Allergies Allergy/AdvReac Type Severity Reaction Status Date / Time No Known Allergies Allergy Verified 08/29/24 08:52 Review of Systems ROS Statement: Those systems with pertinent positive or pertinent negative responses have been documented in the HPI. ROS Other: All systems not noted in ROS Statement are negative. Past Medical History Past Medical History: Asthma, GERD/Reflux, Hypertension, Skin Disorder Additional Past Medical History / Comment(s): pcos, HTN during ,ecz veronika,prediabetes History of Any Multi-Drug Resistant Organisms: None Reported Past Surgical History: Appendectomy, Section, Cholecystectomy Additional Past Surgical History / Comment(s): lithotripsy Past Anesthesia/Blood Transfusion Reactions: No Reported Reaction Additional Past Anesthesia/Blood Transfusion Reaction / Comment(s): no hx blood transfusion Past Psychological History: No Psychological Hx Reported Smoking Status: Never smoker Past Alcohol Use History: None Reported Past Drug Use History: None Reported - Past Family History Mother Family Medical History: Hypertension, Seizure Disorder Additional Family Medical History / Comment(s): Grand Mal Seizures, well controlled Father Family Medical History: Diabetes Mellitus, Hyperlipidemia, Hypertension General Exam Limitations: no limitations General appearance: alert, in no apparent distress Head exam: Present: atraumatic, normocephalic, normal inspection Eye exam: Present: normal appearance, PERRL, EOMI. Absent: scleral icterus, conjunctival injection, periorbital swelling ENT exam: Present: normal exam, mucous membranes moist Neck exam: Present: normal inspection, full ROM. Absent: tenderness, meningismus, lymphadenopathy Respiratory exam: Present: normal lung sounds bilaterally. Absent: respiratory distress, wheezes, rales, rhonchi, stridor Cardiovascular Exam: Present: normal rhythm, tachycardia, normal heart sounds. Absent: systolic murmur, diastolic murmur, rubs, gallop, clicks GI/Abdominal exam: Present: soft, normal bowel sounds. Absent: distended, tenderness, guarding, rebound, rigid Neurological exam: Present: alert, oriented X3 Course Vital Signs 08/29/24 08:49 Temperature 101 F H Pulse Rate 134 H Respiratory 20 Rate Blood Pressure 165/95 O2 Sat by Pulse 96 Oximetry Medical Decision Making - Medical Decision Making Was pt. sent in by a medical professional or institution (, PA, PARTNERSHIP MANAGER, urgent care, hospital, or correction...) When possible be specific @ -No Did you speak to anyone other than the patient for history (EMS, parent, family, police, friend...)? What history was obtained from this source @ -No Did you review nursing and triage notes (agree or disagree)? Why? @ -I reviewed and agree with nursing and triage notes Were old charts reviewed (outside hosp., previous admission, EMS record, old EKG, old radiological studies, urgent care reports/EKG's, correction records)? Report findings @ -No old charts were reviewed Differential Diagnosis (chest pain, altered mental status, abdominal pain women, abdominal pain men, vaginal bleeding, weakness, fever, dyspnea, syncope, headache, dizziness, GI bleed, back pain, seizure, CVA, palpatations, mental health, musculoskeletal)? @ -COVID 19, RSV, influenza, pneumonia, acute bronchitis, URI, this list is not all inclusive EKG interpreted by me (3pts min.). @None X-rays interpreted by me (1pt min.). @ -Chest x-ray shows no acute cardiopulmonary process. CT interpreted by me (1pt min.). @ -None done U/S interpreted by me (1pt. min.). @ -None done What testing was considered but not performed or refused? (CT, X-rays, U/S, labs)? Why? @ -None What meds were considered but not given or refused? Why? @ -None Did you discuss the management of the patient with other professionals (jeannie pinto i.e. , PA, PARTNERSHIP MANAGER, lab, RT, psych nurse, nephrology social worker, hearing stenographer, teacher, earth science technical officer, piano case and bench assembler)? Give summary @ -No Was smoking cessation discussed for >3mins.? @ -No Was critical care preformed (if so, how long)? @ -No Were there social determinants of health that impacted care today? How? (Homelessness, low income, unemployed, alcoholism, drug addiction, transportation, low edu. Level, literacy, decrease access to med. care, skilled nursing, rehab)? @ -No Was there de-escalation of care discussed even if they declined (Discuss DNR or withdrawal of care, Hospice)? DNR status @ -No What co-morbidities impacted this encounter? (DM, HTN, Smoking, COPD, CAD, Cancer, CVA, ARF, Chemo, Hep., AIDS, mental health diagnosis, sleep apnea, morbid obesity)? @ -None Was patient admitted / discharged? Hospital course, mention meds given and route, prescriptions, significant lab abnormalities, going to OR and other pertinent info. @ -Discharge patient has influenza A. X-rays unremarkable. Patient discharged in stable condition. Undiagnosed new problem with uncertain prognosis? @ -No Drug Therapy requiring intensive monitoring for toxicity (Heparin, Nitro, Insulin, Cardizem)? @ -No Were any procedures done? @ -No Diagnosis/symptom? @ -Influenza A Acute, or Chronic, or Acute on Chronic? @ -Acute Uncomplicated (without systemic symptoms) or Complicated (systemic symptoms)? @ -Complicated Side effects of treatment? @ -No Exacerbation, Progression, or Severe Exacerbation? @ -No Poses a threat to life or bodily function? How? (Chest pain, [place], [place], pneumonia, PE, COPD, DKA, ARF, appy, cholecystitis, CVA, Diverticulitis, Homicidal, Suicidal, threat to staff... and all critical care pts) @ -No - Lab Data Lab Results 08/29/24 Range/Units 08:53 Influenza Type A (PCR) Detected A (Not Detectd) Influenza Type B (PCR) Not Detected (Not Detectd) RSV (PCR) Not Detected (Not Detectd) SARS-CoV-2 (PCR) Not Detected (Not Detectd) Disposition Clinical Impression: Influenza A Disposition: HOME SELF-CARE Condition: Stable Instructions (If sedation given, give patient instructions): Influenza (ED) Additional Instructions: Please return to the Emergency Department if symptoms worsen or any other concerns. Prescriptions: Oseltamivir [Tamiflu] 75 mg PO Q12HR #10 cap Is patient prescribed a controlled substance at d/c from ED?: No Referrals: Geetha Stephens DO [Primary Care Provider] - 1-2 days Time of Disposition: 09:41
[2024-08-29 09:50] VITALS: BP 115/63; PULSE 118; TEMP 99.7
== END 2024-08-29 09:49 | disposition home or self-care (01) ==
LOC: EC 08:48
DX: J10.1 Influenza due to other identified influenza virus with other respiratory manifestations (principal)
CPT/HCPCS: 71046; 87636; 99284

== ENCOUNTER 2024-08-29 23:41 | Inpatient (IN) | payer BC ==
--- NOTE | 2024-08-30 00:28 | ED ---
Chest Pain HPI - General Source: patient, RN notes reviewed Mode of arrival: ambulatory Limitations: no limitations <Yazmin Kasper - Last Filed: 08/30/24 02:07> <Luis Felipe Hopkins - Last Filed: 08/30/24 08:08> - General Chief Complaint: Chest Pain Stated Complaint: chest pain Time Seen by Provider: 08/30/24 00:24 - History of Present Illness Initial Comments: 39-year-old female presenting for chest pain since this morning. States she was here earlier today and diagnosed with influenza A. States when she was laying in bed tonight she began to experience a worsening right-sided chest pain that radiates across the upper back. States the pain is sharp and worse with deep inspiration. States she has never had this before. Also endorses body aches, cough, fever, and chills. History of hypertension and prediabetes. Denies history of blood clots. No recent surgery or travel in the past 3 months. She is a non-smoker. Denies hormone replacement therapy. Denies blood thinners. (Yazmin Kasper) - Related Data Home Medications Medication Instructions Recorded Confirmed metFORMIN HCL [Glucophage] 500 mg PO BID 07/29/15 08/27/24 Cholecalciferol [Vitamin D3 (25 25 mcg PO DAILY 07/27/24 08/27/24 Mcg = 1000 Iu)] Ferrous Sulfate [Iron (65 MG 65 mg PO DAILY 07/27/24 08/27/24 Elemental)] Multivitamins, Thera [Multivitamin 1 tab PO DAILY 07/27/24 08/27/24 (formulary)] Fluticasone Propionate [Flonase 1 - 2 spray EA NOSTRIL DAILY PRN 08/27/24 08/27/24 Allergy Relief] Losartan Potassium 100 mg PO QAM 08/27/24 08/27/24 amLODIPine [Norvasc] 10 mg PO QAM 08/27/24 08/27/24 diphenhydrAMINE [Benadryl] 25 - 50 mg PO QID PRN 08/27/24 08/27/24 Previous Rx's Medication Instructions Recorded Oseltamivir [Tamiflu] 75 mg PO Q12HR #10 cap 08/29/24 Allergies Allergy/AdvReac Type Severity Reaction Status Date / Time No Known Allergies Allergy Verified 08/29/24 23:45 Review of Systems ROS Other: All systems not noted in ROS Statement are negative. <Yazmin Kasper - Last Filed: 08/30/24 02:07> ROS Other: All systems not noted in ROS Statement are negative. <Luis Felipe Hopkins - Last Filed: 08/30/24 08:08> ROS Statement: Those systems with pertinent positive or pertinent negative responses have been documented in the HPI. EKG Findings - EKG Results: EKG: interpreted by ERMD (EKG reveals sinus tachycardia with no acute ST changes. Ventricular rate 113 bpm, IL interval 147, QRS duration 88, QT/QTc 320/387) <Yazmin Kasper - Last Filed: 08/30/24 02:07> Past Medical History Past Medical History: Asthma, GERD/Reflux, Hypertension, Skin Disorder Additional Past Medical History / Comment(s): pcos, HTN during ,eczema,prediabetes History of Any Multi-Drug Resistant Organisms: None Reported Past Surgical History: Appendectomy, Section, Cholecystectomy Additional Past Surgical History / Comment(s): lithotripsy Past Anesthesia/Blood Transfusion Reactions: No Reported Reaction Additional Past Anesthesia/Blood Transfusion Reaction / Comment(s): no hx blood transfusion Past Psychological History: No Psychological Hx Reported Smoking Status: Never smoker Past Alcohol Use History: None Reported Past Drug Use History: None Reported - Past Family History Mother Family Medical History: Hypertension, Seizure Disorder Additional Family Medical History / Comment(s): Grand Mal Seizures, well controlled Father Family Medical History: Diabetes Mellitus, Hyperlipidemia, Hypertension <Yazmin Kasper - Last Filed: 08/30/24 02:07> General Exam Limitations: no limitations General appearance: alert, in no apparent distress Head exam: Present: atraumatic, normocephalic, normal inspection Respiratory exam: Present: normal lung sounds bilaterally. Absent: respiratory distress, wheezes, rales, rhonchi, stridor, chest wall tenderness (Pain is nonreproducible), accessory muscle use Cardiovascular Exam: Present: regular rate, normal rhythm, normal heart sounds. Absent: systolic murmur, diastolic murmur, rubs, gallop, clicks GI/Abdominal exam: Present: soft, normal bowel sounds. Absent: distended, tenderness, guarding, rebound, rigid <Yazmin Kasper - Last Filed: 08/30/24 02:07> Course Vital Signs 08/29/24 08/30/24 08/30/24 23:42 01:52 04:00 Temperature 99.1 F Pulse Rate 122 H 109 H 90 Respiratory 18 18 20 Rate Blood Pressure 166/89 149/91 O2 Sat by Pulse 96 90 L Oximetry 08/30/24 08/30/24 08/30/24 04:34 06:31 08:07 Temperature Pulse Rate 93 85 Respiratory 18 16 Rate Blood Pressure 132/67 O2 Sat by Pulse 92 L 94 L 90 L Oximetry Chest Pain MDM <Yazmin Kasper - Last Filed: 08/30/24 02:07> <Luis Felipe Hopkins - Last Filed: 08/30/24 08:08> - MDM Was pt. sent in by a medical professional or institution (, PA, CNA LTC, urgent care, hospital, or correction...) When possible be specific @ -No Did you speak to anyone other than the patient for history (EMS, parent, family, police, friend...)? What history was obtained from this source @ -No Did you review nursing and triage notes (agree or disagree)? Why? @ -I reviewed and agree with nursing and triage notes Were old charts reviewed (outside hosp., previous admission, EMS record, old EKG, old radiological studies, urgent care reports/EKG's, correction records)? Report findings @ -Previous ER visits from earlier today reviewed, patient is influenza A positive, chest x-ray reveals no acute process Differential Diagnosis (chest pain, altered mental status, abdominal pain women, abdominal pain men, vaginal bleeding, weakness, fever, dyspnea, syncope, headache, dizziness, GI bleed, back pain, seizure, CVA, palpatations, mental health, musculoskeletal)? @ -Differential Chest Pain: Stable Angina, Unstable Angina, STEMI, NSTEMI Aortic Dissection, Pneumothorax, Musculoskeletal, Esophageal Spasm GERD, Cholecystitis, Pancreatitis, Zoster, this is not meant to be an all-inclusive list. EKG interpreted by me (3pts min.). @ -As above X-rays interpreted by me (1pt min.). @ -None done CT interpreted by me (1pt min.). @ -CTA chest negative for pulmonary embolism U/S interpreted by me (1pt. min.). @ -Bilateral lower extremity ultrasounds pending What testing was considered but not performed or refused? (CT, X-rays, U/S, labs)? Why? @ -none What meds were considered but not given or refused? Why? @ -None Did you discuss the management of the patient with other professionals (professionals i.e. , PA, CNA LTC, lab, RT, psych nurse, social media content manager, forklift technician, teacher, security police officer, bilingual patient support caseworker)? Give summary @ -No Was smoking cessation discussed for >3mins.? @ -No Was critical care preformed (if so, how long)? @ -No Were there social determinants of health that impacted care today? How? (Homelessness, low income, unemployed, alcoholism, drug addiction, transportation, low edu. Level, literacy, decrease access to med. care, snf, rehab)? @ -No Was there de-escalation of care discussed even if they declined (Discuss DNR or withdrawal of care, Hospice)? DNR status @ -No What co-morbidities impacted this encounter? (DM, HTN, Smoking, COPD, CAD, Cancer, CVA, ARF, Chemo, Hep., AIDS, mental health diagnosis, sleep apnea, morbid obesity)? @ -None Was patient admitted / discharged? Hospital course, mention meds given and route, prescriptions, significant lab abnormalities, going to OR and other pertinent info. @ -39-year-old female presenting for chest pain x 1 day that radiates to the back. Patient was seen earlier today in the ER and was positive for influenza A. Chest x-ray was negative at this time. Patient is tachycardic. Provided with dose of ibuprofen. EKG reveals sinus tachycardia with no ST changes. Lab work remarkable for elevated D-dimer of 12. CTA performed at this time which was negative for PE. Bilateral lower extremity ultrasounds ordered to rule out DVT. Case signed out to my ED attending Dr. Mccarty pending b/l LE ultras ounds and disposition. (Yazmin Kasper) Patient care signed out to me pending ultrasound images. Patient briefly is a 39-year-old female seen in the emergency department recently and tested positive for influenza A. Came into the emergency department for chest pain that radiated to the back. Patient prior to signout had received labs and CT angio imaging. Patient had an elevated D-dimer and CT angio was unremarkable. She had a elevated D-dimer of 12. Plan at signout is to follow-up with pending ultrasound. Vitals reviewed showing that patient had a oxygen level of 90%. She was placed on oxygen. 7:40 AM: Ultrasound images reviewed by me showing no evidence of DVT. Radiology interpretation is agreeable. Patient concerned of her oxygen levels. Patient underwent ambulatory pulse ox. Disposition options were discussed with patient. Her ambulatory pulse ox was 90%. Patient requested discharge. Given a dose of Decadron. Patient given outpatient referral for pulmonology. She is told to follow-up with lung specialist and/or PCP within the next 1 to 2 days. She is advised to obtain a pulse oximeter. Patient given strict return precautions. She is currently on day 2 of Tamiflu (Luis Felipe Hopkins) Disposition <Yazmin Kasper - Last Filed: 08/30/24 02:07> Is patient prescribed a controlled substance at d/c from ED?: No Time of Disposition: 07:41 <Luis Felipe Hopkins - Last Filed: 08/30/24 08:08> Clinical Impression: Chest pain Disposition: HOME SELF-CARE Condition: Fair Instructions (If sedation given, give patient instructions): Chest Pain (ED) Referrals: Geetha Stephens DO [Primary Care Provider] - 1-2 days
[2024-08-30] MEDS: IBUPROFEN 800 MG TAB PO STA (00:42)
[2024-08-30 00:57] LABS: Basophils % (A) 0 %; Eosinophils # (A) 0.1 k/uL (0-0.7); Eosinophils % (A) 1 %; HCT 39.3 % (34.0-46.0); HGB 12.2 gm/dL (11.4-16.0); Lymphocytes # (A) 0.9 k/uL (1.0-4.8); Lymphocytes % (A) 11 %; MCH 27.3 pg (25.0-35.0); MCHC 31.1 g/dL (31.0-37.0); MCV 87.9 fL (80.0-100.0); Mean Platelet Volume 7.2; Monocytes # (A) 0.6 k/uL (0-1.0); Monocytes % (A) 8 %; Neutrophils # (A) 6.2 k/uL (1.3-7.7); Neutrophils % (A) 78 %; Platelet Count 250 k/uL (150-450); RBC 4.47 m/uL (3.80-5.40); RDW 14.3 % (11.5-15.5); WBC 7.9 k/uL (3.8-10.6)
[2024-08-30 01:12] LABS: ALT 73 U/L (4-34); AST 76 U/L (14-36); African American GFR (CKD) >90 (>60 ml/min/1.73 sqM); Albumin 3.8 g/dL (3.5-5.0); Alkaline Phosphatase 103 U/L (38-126); Anion Gap 9 mmol/L; Blood Urea Nitrogen 13 mg/dL (7-17); Calcium 9.1 mg/dL (8.4-10.2); Carbon Dioxide 24 mmol/L (22-30); Chloride 104 mmol/L (98-107); Glucose 142 mg/dL (74-99); Non-African American GFR(CKD) >90 (>60 ml/min/1.73 sqM); Sodium 137 mmol/L (137-145); Total Bilirubin 0.4 mg/dL (0.2-1.3); Total Protein 6.5 g/dL (6.3-8.2)
[2024-08-30 01:23] LABS: INR 0.9 (<1.2); Partial Thromboplastin Time 23.8 sec (22.0-30.0); Prothrombin Time 10.6 sec (10.0-12.5)
[2024-08-30] MEDS: MORPHINE SULFATE 4 MG/ML SYRINGE IVP STA (01:54)
[2024-08-30] MEDS: ONDANSETRON 4 MG/2 ML VIAL IVP STA (01:54)
--- NOTE | 2024-08-30 02:01 | CT ---
EXAM: CT Angiography Chest With Intravenous Contrast CLINICAL HISTORY: ITS.REASON CT Reason: r/o PE, chest pain, elevated D-dimer TECHNIQUE: Axial computed tomographic angiography images of the chest with intravenous contrast. CTDI is 71.6 mGy and DLP is 1376 mGy-cm. This CT exam was performed using one or more of the following dose reduction techniques: automated exposure control, adjustment of the mA and/or kV according to patient size, and/or use of iterative reconstruction technique. MIP reconstructed images were created and reviewed. COMPARISON: CT chest on 08/21/2020 FINDINGS: Pulmonary arteries: Unremarkable. No pulmonary embolus identified. Aorta: No acute findings. No aortic aneurysm or dissection. Lungs: Unremarkable. No mass. No consolidation. Pleural space: Unremarkable. No significant effusion. No pneumothorax. Heart: Unremarkable. No cardiomegaly. No significant pericardial effusion. No evidence of RV dysfunction. Bones/joints: Degenerative changes of the spine. Schmorl's node deformities. No acute fracture. No dislocation. Soft tissues: Unremarkable. Lymph nodes: Unremarkable. No enlarged lymph nodes. Liver: Hepatic steatosis. Gallbladder and bile ducts: Prior cholecystectomy. IMPRESSION: 1. No pulmonary embolus identified. 2. No aortic aneurysm or dissection. 3. No acute pulmonary parenchymal abnormality identified.
[2024-08-30] MEDS: ACETAMINOPHEN TAB 500 MG TAB PO STA (05:12)
[2024-08-30] MEDS: IBUPROFEN 600 MG TAB PO STA (06:50)
--- NOTE | 2024-08-30 07:30 | US ---
EXAMINATION TYPE: US venous doppler duplex LE BI DATE OF EXAM: 08/30/2024 6:52 AM COMPARISON: NONE CLINICAL INDICATION: Female, 39 years old with history of elevated D-dimer; elevated d dimer. No pain in legs, Pain TECHNIQUE: The lower extremity deep venous system is examined utilizing real time linear array sonog renita with graded compression, color doppler sonography, and spectral doppler. SIDE PERFORMED: Bilateral FINDINGS: VESSELS IMAGED: Common Femoral Vein Deep Femoral Vein Greater Saphenous Vein * Femoral Vein Popliteal Vein Small Saphenous Vein * Proximal Calf Veins (* superficial vessels) *Slightly limited due to bowel gas Right Leg: No evidence for DVT , Color Doppler imaging shows patency of the vessels. Spectral wavefo gibson are within normal limits. Left Leg: No evidence for DVT, Color Doppler imaging shows patency of the vessels. Spectral waveform s are within normal limits. IMPRESSION: No ultrasound evidence for deep venous thrombosis. [facility], , 08/30/2024 7:28 AM
--- NOTE | 2024-08-30 08:10 | ED ---
Medical Decision Making - Lab Data Result diagrams: 08/30/24 00:38 08/30/24 00:38 Lab Results 08/30/24 08/30/24 08/30/24 Range/Units 00:38 00:38 00:38 WBC 7.9 (3.8-10.6) k/uL RBC 4.47 (3.80-5.40) m/uL Hgb 12.2 (11.4-16.0) gm/dL Hct 39.3 (34.0-46.0) % MCV 87.9 (80.0-100.0) fL MCH 27.3 (25.0-35.0) pg MCHC 31.1 (31.0-37.0) g/dL RDW 14.3 (11.5-15.5) % Plt Count 250 (150-450) k/uL MPV 7.2 Neutrophils % 78 % Lymphocytes % 11 % Monocytes % 8 % Eosinophils % 1 % Basophils % 0 % Neutrophils # 6.2 (1.3-7.7) k/uL Lymphocytes # 0.9 L (1.0-4.8) k/uL Monocytes # 0.6 (0-1.0) k/uL Eosinophils # 0.1 (0-0.7) k/uL Basophils # 0.0 (0-0.2) k/uL PT 10.6 (10.0-12.5) sec INR 0.9 (<1.2) APTT 23.8 (22.0-30.0) sec D-Dimer 12.95 H (<0.60) mg/L FEU Sodium 137 (137-145) mmol/L Potassium 4.0 (3.5-5.1) mmol/L Chloride 104 (98-107) mmol/L Carbon Dioxide 24 (22-30) mmol/L Anion Gap 9 mmol/L BUN 13 (7-17) mg/dL Creatinine 0.63 (0.52-1.04) mg/dL Est GFR (CKD-EPI)AfAm >90 (>60 ml/min/1.73 sqM) Est GFR (CKD-EPI)NonAf >90 (>60 ml/min/1.73 sqM) Glucose 142 H (74-99) mg/dL Calcium 9.1 (8.4-10.2) mg/dL Total Bilirubin 0.4 (0.2-1.3) mg/dL AST 76 H (14-36) U/L ALT 73 H (4-34) U/L Alkaline Phosphatase 103 (38-126) U/L Troponin I (0.000-0.034) ng/mL Total Protein 6.5 (6.3-8.2) g/dL Albumin 3.8 (3.5-5.0) g/dL 08/30/24 Range/Units 00:38 WBC (3.8-10.6) k/uL RBC (3.80-5.40) m/uL Hgb (11.4-16.0) gm/dL Hct (34.0-46.0) % MCV (80.0-100.0) fL MCH (25.0-35.0) pg MCHC (31.0-37.0) g/dL RDW (11.5-15.5) % Plt Count (150-450) k/uL MPV Neutrophils % % Lymphocytes % % Monocytes % % Eosinophils % % Basophils % % Neutrophils # (1.3-7.7) k/uL Lymphocytes # (1.0-4.8) k/uL Monocytes # (0-1.0) k/uL Eosinophils # (0-0.7) k/uL Basophils # (0-0.2) k/uL PT (10.0-12.5) sec INR (<1.2) APTT (22.0-30.0) sec D-Dimer (<0.60) mg/L FEU Sodium (137-145) mmol/L Potassium (3.5-5.1) mmol/L Chloride (98-107) mmol/L Carbon Dioxide (22-30) mmol/L Anion Gap mmol/L BUN (7-17) mg/dL Creatinine (0.52-1.04) mg/dL Est GFR (CKD-EPI)AfAm (>60 ml/min/1.73 sqM) Est GFR (CKD-EPI)NonAf (>60 ml/min/1.73 sqM) Glucose (74-99) mg/dL Calcium (8.4-10.2) mg/dL Total Bilirubin (0.2-1.3) mg/dL AST (14-36) U/L ALT (4-34) U/L Alkaline Phosphatase (38-126) U/L Troponin I <0.012 (0.000-0.034) ng/mL Total Protein (6.3-8.2) g/dL Albumin (3.5-5.0) g/dL Disposition Clinical Impression: Chest pain Disposition: HOME SELF-CARE Condition: Fair Instructions (If sedation given, give patient instructions): Chest Pain (ED) Additional Instructions: Follow-up with PCP and or electrical technology instructor within the next 1 to 2 days. Please continue to monitor your oxygen levels at home via a pulse oximeter. These can be purchased at local pharmacy and/or [employer]. Return to the emergency department with any worsening symptoms especially oxygen measurements below 90% at rest Is patient prescribed a controlled substance at d/c from ED?: No Referrals: Geetha Stephens DO [Primary Care Provider] - 1-2 days Bar Reilly MD [STAFF PHYSICIAN] - 1-2 days
[2024-08-30] MEDS: DEXAMETHASONE SOD PHOSPHATE 10 MG/ML 1 ML VIAL IV STA (08:23)
[2024-08-30] MEDS ORDERED: NALOXONE 0.4 MG/ML 1 ML VIAL IV PRN (08:31)
--- NOTE | 2024-08-30 08:31 | ED ---
Medical Decision Making - Medical Decision Making Patient was about to be discharged when her pulse oximetry level started to however in the high 80s with no supplemental oxygen. Patient will be admitted consultation to pulmonology. - Lab Data Result diagrams: 08/30/24 00:38 08/30/24 00:38 Lab Results 08/30/24 08/30/24 08/30/24 Range/Units 00:38 00:38 00:38 WBC 7.9 (3.8-10.6) k/uL RBC 4.47 (3.80-5.40) m/uL Hgb 12.2 (11.4-16.0) gm/dL Hct 39.3 (34.0-46.0) % MCV 87.9 (80.0-100.0) fL MCH 27.3 (25.0-35.0) pg MCHC 31.1 (31.0-37.0) g/dL RDW 14.3 (11.5-15.5) % Plt Count 250 (150-450) k/uL MPV 7.2 Neutrophils % 78 % Lymphocytes % 11 % Monocytes % 8 % Eosinophils % 1 % Basophils % 0 % Neutrophils # 6.2 (1.3-7.7) k/uL Lymphocytes # 0.9 L (1.0-4.8) k/uL Monocytes # 0.6 (0-1.0) k/uL Eosinophils # 0.1 (0-0.7) k/uL Basophils # 0.0 (0-0.2) k/uL PT 10.6 (10.0-12.5) sec INR 0.9 (<1.2) APTT 23.8 (22.0-30.0) sec D-Dimer 12.95 H (<0.60) mg/L FEU Sodium 137 (137-145) mmol/L Potassium 4.0 (3.5-5.1) mmol/L Chloride 104 (98-107) mmol/L Carbon Dioxide 24 (22-30) mmol/L Anion Gap 9 mmol/L BUN 13 (7-17) mg/dL Creatinine 0.63 (0.52-1.04) mg/dL Est GFR (CKD-EPI)AfAm >90 (>60 ml/min/1.73 sqM) Est GFR (CKD-EPI)NonAf >90 (>60 ml/min/1.73 sqM) Glucose 142 H (74-99) mg/dL Calcium 9.1 (8.4-10.2) mg/dL Total Bilirubin 0.4 (0.2-1.3) mg/dL AST 76 H (14-36) U/L ALT 73 H (4-34) U/L Alkaline Phosphatase 103 (38-126) U/L Troponin I (0.000-0.034) ng/mL Total Protein 6.5 (6.3-8.2) g/dL Albumin 3.8 (3.5-5.0) g/dL 08/30/24 Range/Units 00:38 WBC (3.8-10.6) k/uL RBC (3.80-5.40) m/uL Hgb (11.4-16.0) gm/dL Hct (34.0-46.0) % MCV (80.0-100.0) fL MCH (25.0-35.0) pg MCHC (31.0-37.0) g/dL RDW (11.5-15.5) % Plt Count (150-450) k/uL MPV Neutrophils % % Lymphocytes % % Monocytes % % Eosinophils % % Basophils % % Neutrophils # (1.3-7.7) k/uL Lymphocytes # (1.0-4.8) k/uL Monocytes # (0-1.0) k/uL Eosinophils # (0-0.7) k/uL Basophils # (0-0.2) k/uL PT (10.0-12.5) sec INR (<1.2) APTT (22.0-30.0) sec D-Dimer (<0.60) mg/L FEU Sodium (137-145) mmol/L Potassium (3.5-5.1) mmol/L Chloride (98-107) mmol/L Carbon Dioxide (22-30) mmol/L Anion Gap mmol/L BUN (7-17) mg/dL Creatinine (0.52-1.04) mg/dL Est GFR (CKD-EPI)AfAm (>60 ml/min/1.73 sqM) Est GFR (CKD-EPI)NonAf (>60 ml/min/1.73 sqM) Glucose (74-99) mg/dL Calcium (8.4-10.2) mg/dL Total Bilirubin (0.2-1.3) mg/dL AST (14-36) U/L ALT (4-34) U/L Alkaline Phosphatase (38-126) U/L Troponin I <0.012 (0.000-0.034) ng/mL Total Protein (6.3-8.2) g/dL Albumin (3.5-5.0) g/dL Disposition Clinical Impression: Chest pain, Hypoxia Disposition: ADMITTED IP TO THIS HOSP Condition: Fair Instructions (If sedation given, give patient instructions): Chest Pain (ED) Is patient prescribed a controlled substance at d/c from ED?: No Referrals: Bar Reilly MD [STAFF PHYSICIAN] - 1-2 days Geetha Stephens DO [Primary Care Provider] - 1-2 days Decision Time: 08:31
[2024-08-30] MEDS: OSELTAMIVIR 75 MG CAP PO SCH (09:59)
[2024-08-30] MEDS: SODIUM CHLORIDE 0.9% 1,000 ML IV SCH (09:59)
[2024-08-30] MEDS: ACETAMINOPHEN TAB 325 MG TAB PO PRN (13:09)
[2024-08-30] MEDS ORDERED: IPRATROPIUM-ALBUTEROL 3 ML NEB INHALATION PRN (13:25)
--- NOTE | 2024-08-30 13:52 | P.CNPUL ---
History of Present Illness Consult date: 08/30/24 Requesting physician: Luis Felipe Hopkins Reason for consult: hypoxemia Chief complaint: Right sided chest pain radiating to her back History of present illness: This is a very pleasant 39-year-old female patient with a known history of obesity, hypertension, polycystic ovarian syndrome, smoker. She was seen yesterday in the emergency department for shortness of breath cough and congestion was diagnosed with influenza A and was treated and discharged to home. She presented back to the emergency room just after midnight today after developing right sided chest pain that was radiating across her upper back. She stated the pain was sharp and worse with deep inspiration. She does get due to have body aches, cough fever and chills. CT angiogram ruled out pulmonary embolism. No aortic aneurysm or dissection. No acute pulmonary parenchymal abnormality identified. Doppler of the lower extremities ruled out DVT. D- dimer 12.95. Sodium 137. Potassium 4.0. Bicarb 24. BUN 13. Creatinine 0.63. Glucose 142. AST 76. ALT 73. Troponin negative. The patient was about to be discharged from the emergency room again however she developed O2 saturations in the 80s on room air oxygen and was changed to admission status. We are consulted for the same. She is seen in the emergency department. Currently sitting up on a stretcher. Awake and alert in no acute distress. She does have a loose congested cough. She was 89% saturation on room air. She is 94% on 2 L/min per nasal cannula. Currently afebrile. Hemodynamically stable. Review of Systems REVIEW OF SYSTEMS: CONSTITUTIONAL: Positive for fever, chills. Denies any recent significant weight loss or weight gain. EYES: Denies change in vision. EARS, NOSE, MOUTH, THROAT: Positive for headaches, denies sore throat. CARDIOVASCULAR: Denies chest pain, palpitations or syncopal episodes. RESPIRATORY: Positive for shortness of breath, cough, congestion no hemoptysis. GASTROINTESTINAL: Denies change in appetite, denies abdominal pain GENITOURINARY: Denies hematuria, denies infections. MUSKULOSKELETAL: Denies pain, denies swelling. INTEGUMENTARY: Denies rash, denies eczema. NEUROLOGICAL: Denies recent memory loss, no recent seizure activity. PSYCHIATRIC: Denies anxiety, denies depression. HEMATOLOGIC/LYMPHATIC: Denies anemia, denies enlarged lymph nodes. Past Medical History Past Medical History: Asthma, GERD/Reflux, Hypertension, Skin Disorder Additional Past Medical History / Comment(s): pcos, HTN during ,ecz veronika,prediabetes History of Any Multi-Drug Resistant Organisms: None Reported Past Surgical History: Appendectomy, Section, Cholecystectomy Additional Past Surgical History / Comment(s): lithotripsy Past Anesthesia/Blood Transfusion Reactions: No Reported Reaction Additional Past Anesthesia/Blood Transfusion Reaction / Comment(s): no hx blood transfusion Past Psychological History: No Psychological Hx Reported Smoking Status: Never smoker Past Alcohol Use History: None Reported Past Drug Use History: None Reported - Past Family History Mother Family Medical History: Hypertension, Seizure Disorder Additional Family Medical History / Comment(s): Grand Mal Seizures, well controlled Father Family Medical History: Diabetes Mellitus, Hyperlipidemia, Hypertension Medications and Allergies Home Medications Medication Instructions Recorded Confirmed Type metFORMIN HCL [Glucophage] 500 mg PO BID 07/29/15 08/30/24 History Cholecalciferol [Vitamin D3 (25 25 mcg PO DAILY 07/27/24 08/30/24 History Mcg = 1000 Iu)] Ferrous Sulfate [Iron (65 MG 325 mg PO DAILY 07/27/24 08/30/24 History Elemental)] Multivitamins, Thera [Multivitamin 1 tab PO DAILY 07/27/24 08/30/24 History (formulary)] Losartan Potassium 100 mg PO DAILY 08/27/24 08/30/24 History amLODIPine [Norvasc] 10 mg PO DAILY 08/27/24 08/30/24 History Oseltamivir [Tamiflu] 75 mg PO Q12HR #10 cap 08/29/24 08/30/24 Rx Allergies Allergy/AdvReac Type Severity Reaction Status Date / Time No Known Allergies Allergy Verified 08/30/24 09:53 Physical Exam Vitals: Vital Signs Temp Pulse Resp BP Pulse Ox 08/30/24 12:30 96 18 119/73 94 L 08/30/24 11:21 92 18 119/94 94 L 08/30/24 10:00 86 20 124/78 94 L 08/30/24 08:28 89 18 89 L 08/30/24 08:26 18 08/30/24 08:19 98.7 F 92 18 120/86 94 L 08/30/24 08:07 90 L 08/30/24 06:31 85 16 132/67 94 L 08/30/24 04:34 93 18 92 L 08/30/24 04:00 90 20 90 L 08/30/24 01:52 109 H 18 149/91 08/29/24 23:42 99.1 F 122 H 18 166/89 96 Intake and Output 08/29/24 08/30/24 08/30/24 22:59 06:59 14:59 Other: Weight 153.314 kg GENERAL EXAM: Alert, very pleasant, obese 39-year-old female, on 2 L nasal cannula, fairly comfortable in no apparent distress. HEAD: Normocephalic. EYES: Normal reaction of pupils, equal size. NOSE: Clear with pink turbinates. THROAT: No erythema or exudates. NECK: No masses, no JVD. CHEST: No chest wall deformity. LUNGS: Equal air entry with few scattered rhonchi. CVS: S1 and S2 normal with no audible murmur, regular rhythm. ABDOMEN: No hepatosplenomegaly, normal bowel sounds, no guarding or rigidity. SPINE: No scoliosis or deformity SKIN: No rashes CENTRAL NERVOUS SYSTEM: No focal deficits, tone is normal in all 4 extremities. EXTREMITIES: There is no peripheral edema. No clubbing, no cyanosis. Peripheral pulses are intact. Results - Laboratory Findings CBC and BMP: 08/30/24 00:38 08/30/24 00:38 PT/INR, D-dimer PT 10.6 sec (10.0-12.5) 08/30/24 00:38 INR 0.9 (<1.2) 08/30/24 00:38 D-Dimer 12.95 mg/L FEU (<0.60) H 08/30/24 00:38 Abnormal lab findings: Abnormal Labs 08/30/24 08/30/24 08/30/24 00:38 00:38 00:38 Lymphocytes # 0.9 L D-Dimer 12.95 H Glucose 142 H AST 76 H ALT 73 H - Diagnostic Findings Chest x-ray: image reviewed Assessment and Plan Assessment: Acute hypoxic respiratory failure secondary to an acute influenza A infection. CT angiogram ruled out pulmonary embolism Acute influenza A infection Polycystic ovarian syndrome Morbid obesity with a BMI of 58.0 kg/m, pending upcoming gastric surgery Lifelong non-smoker Plan: The patient was seen and evaluated Imaging, labs and medications reviewed Initiated on Tamiflu Continue antibiotics for now Check a procalcitonin Continue bronchodilators, steroids Titrate down/off the FiO2 as tolerated Heparin for DVT prophylaxis We will continue to follow and make further recommendations based on her clinical status I have personally seen and examined the patient, performed the documentation and the assessment and plan as written. Number of minutes spent on the visit: 20 Dictation was produced using [employer] dictation software. Please excuse any grammatical, word or spelling errors.
--- NOTE | 2024-08-30 14:06 | XR ---
EXAMINATION TYPE: XR chest 1V portable DATE OF EXAM: 08/30/2024 1:36 PM COMPARISON: Chest radiographs from 08/29/2024. CLINICAL INDICATION: Female, 39 years old with history of chf; [facility] TECHNIQUE: XR chest 1V portable Frontal view of the chest. FINDINGS: Lungs/Pleura: There is no evidence of pleural effusion, focal consolidation, or pneumothorax. Pulmonary vascularity: Unremarkable. Heart/mediastinum: Cardiomediastinal silhouette is unremarkable. Musculoskeletal: No acute osseous pathology. Other findings: None IMPRESSION: No evidence for congestive heart failure, No acute cardiopulmonary disease/process. [facility], , 08/30/2024 2:03 PM
[2024-08-30] MEDS: amLODIPine 10 MG TAB PO SCH (14:17)
[2024-08-30] MEDS: HEPARIN SODIUM,PORCINE 5,000 UNIT/ML 1 ML VIAL SQ SCH (14:18)
[2024-08-30] MEDS: PANTOPRAZOLE 40 MG/10 ML VIAL IVP SCH (14:19)
[2024-08-30] MEDS: ONDANSETRON 4 MG/2 ML VIAL IVP PRN (14:19)
[2024-08-30] MEDS: methylPREDNISolone SOD SUCCI 125 MG/2 ML VIAL IV SCH (14:20)
[2024-08-30] MEDS: HYDROmorphone 0.5 MG/0.5 ML SYRINGE IVP PRN (16:16)
[2024-08-30] MEDS: AZITHROMYCIN 500 MG in SODIUM CHLORIDE 0.9% 250 ML IVPB SCH (16:19)
[2024-08-30] MEDS: HYDROcodone/APAP 5-325MG 1 EACH TAB PO PRN (17:34)
[2024-08-30] MEDS: IPRATROPIUM-ALBUTEROL 3 ML NEB INHALATION SCH (19:58)
[2024-08-30] MEDS: SYMBICORT 160-4.5 MCG INHALER INHALATION SCH (19:59)
--- NOTE | 2024-08-30 21:17 | HP ---
HISTORY AND PHYSICAL CHIEF COMPLAINT: Chest pain, cough, and shortness of breath. HISTORY OF PRESENT ILLNESS: This 39-year-old woman with a past history of multiple medical problems, was complaining of significant shortness of breath, cough, and right-sided chest pain for the last several days. 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 There is no history of any fever, rigors, or chills at this time. AST and ALT were also elevated. PAST MEDICAL HISTORY: Reviewed and includes asthma and hypertension. Rest of the history and rest of the chart is also reviewed. HOME MEDICATIONS: Reviewed and include metformin, dose and rest of medications reviewed. ALLERGIES: None. FAMILY HISTORY: History of hypertension and seizure disorder. SOCIAL HISTORY: No history of smoking or alcohol. REVIEW OF SYSTEMS: Fourteen-point review of systems negative except as mentioned earlier. PHYSICAL EXAMINATION: VITAL SIGNS: Pulse is 96, blood pressure 119/76, respirations 18. HEENT: Conjunctivae normal. NECK: No JVD. CARDIOVASCULAR: S1, S2. RESPIRATIONS: Scattered rhonchi. ABDOMEN: Soft and obese. LEGS: No edema. NERVOUS SYSTEM: No focal deficit. SKIN: No ulcer, rash, bleeding. JOINTS: No active deforming arthropathy. LABORATORY DATA: Reviewed. ASSESSMENT: 1. Asthma with acute exacerbation with acute purulent tracheobronchitis with no evidence for definite pneumonia. 2. Extremely elevated D-dimer with negative CT angio as well as ultrasound of the legs. 3. Elevated AST and ALT. 4. Lymphopenia, mild. 5. History of hypertension. 6. History of polycystic ovary syndrome. RECOMMENDATIONS AND DISCUSSION: This 39-year-old woman presented with multiple complex medical issues. We will monitor the patient closely. I would recommend empiric bronchodilators, steroids, and assess empiric antibiotics. Otherwise, I would also recommend repeat labs; Infectious Disease and Pulmonary consultation. Prognosis is guarded because of multiple complex medical issues. Further recommendations to follow. See orders for details. MMODL / IJN: [id number] /
--- NOTE | 2024-08-30 22:53 | P.CONS ---
History of Present Illness - Reason for Consult Consult date: 08/30/24 Sepsis Requesting physician: Dayna Alves - Chief Complaint Shortness of breath and chest pain x 1 day - History of Present Illness Patient is a 39-year-old female with a past medical history significant for hypertension reflux asthma presenting to the hospital for evaluation of increasing right-sided chest pain and also cough patient was already evaluated in the ER and was diagnosed with influenza A sent home on Tamiflu however patient presenting back with worsening symptoms of shortness of breath she also having a cough mostly dry in nature with a right-sided chest pain sharp in nature almost 10 of 10 severity without any radiation did have some chills but denies high-grade fever on presentation to hospital she did have low-grade fever of 99.1 F patient was not tachycardic or hypotensive she was mildly hypoxic with O2 sats of 90% on room air currently on 2 L nasal oxygen patient did have white count of 7.9 creatinine is 0.63 electrolytes has been normal liver enzymes mildly elevated patient did have a CT angiogram of the chest that was negative for PE or any aortic dissection and no pneumonia patient did have a lower extremity Dopplers negative for DVT patient has been admitted to hospital infectious he was consulted for sepsis Review of Systems Positive point and negatives has been mentioned in the HPI, complete review of systems was performed and all other systems are negative Past Medical History Past Medical History: Asthma, GERD/Reflux, Hypertension, Skin Disorder Additional Past Medical History / Comment(s): pcos, HTN during ,eczema,prediabetes History of Any Multi-Drug Resistant Organisms: None Reported Past Surgical History: Appendectomy, Section, Cholecystectomy Additional Past Surgical History / Comment(s): lithotripsy Past Anesthesia/Blood Transfusion Reactions: No Reported Reaction Additional Past Anesthesia/Blood Transfusion Reaction / Comm: no hx blood transfusion Past Psychological History: No Psychological Hx Reported Smoking Status: Never smoker Past Alcohol Use History: None Reported Past Drug Use History: None Reported - Past Family History Mother Family Medical History: Hypertension, Seizure Disorder Additional Family Medical History / Comment(s): Grand Mal Seizures, well controlled Father Family Medical History: Diabetes Mellitus, Hyperlipidemia, Hypertension Medications and Allergies Home Medications Medication Instructions Recorded Confirmed Type metFORMIN HCL [Glucophage] 500 mg PO BID 07/29/15 08/30/24 History Cholecalciferol [Vitamin D3 (25 25 mcg PO DAILY 07/27/24 08/30/24 History Mcg = 1000 Iu)] Ferrous Sulfate [Iron (65 MG 325 mg PO DAILY 07/27/24 08/30/24 History Elemental)] Multivitamins, Thera [Multivitamin 1 tab PO DAILY 07/27/24 08/30/24 History (formulary)] Losartan Potassium 100 mg PO DAILY 08/27/24 08/30/24 History amLODIPine [Norvasc] 10 mg PO DAILY 08/27/24 08/30/24 History Oseltamivir [Tamiflu] 75 mg PO Q12HR #10 cap 08/29/24 08/30/24 Rx Allergies Allergy/AdvReac Type Severity Reaction Status Date / Time No Known Allergies Allergy Verified 08/30/24 09:53 Physical Exam Vitals: Vital Signs Temp Pulse Resp BP Pulse Ox 08/30/24 22:09 105 H 20 157/92 96 08/30/24 21:00 97.9 F 96 14 142/78 97 08/30/24 20:14 87 08/30/24 19:59 85 08/30/24 19:42 97.8 F 97 19 134/84 95 08/30/24 18:00 96 17 119/78 96 08/30/24 14:31 94 18 137/79 94 L 08/30/24 12:30 96 18 119/73 94 L 08/30/24 11:21 92 18 119/94 94 L 08/30/24 10:00 86 20 124/78 94 L 08/30/24 08:28 89 18 89 L 08/30/24 08:26 18 08/30/24 08:19 98.7 F 92 18 120/86 94 L 08/30/24 08:07 90 L 08/30/24 06:31 85 16 132/67 94 L 08/30/24 04:34 93 18 92 L 08/30/24 04:00 90 20 90 L 08/30/24 01:52 109 H 18 149/91 08/29/24 23:42 99.1 F 122 H 18 166/89 96 Intake and Output 08/30/24 08/30/24 08/30/24 06:59 14:59 22:59 Other: Weight 153.314 kg GENERAL DESCRIPTION: Middle-age female lying in bed, no distress. No tachypnea or accessory muscle of respiration use. HEENT: Shows Pallor , no scleral icterus. Oral mucous membrane is dry. NECK: Trachea central, no thyromegaly. LUNGS: Unlabored breathing. Clear to auscultation anteriorly. No wheeze or crackle. HEART: S1, S2, regular rate and rhythm. No loud murmur ABDOMEN: Soft, no tenderness , guarding or rigidity, no organomegaly EXTREMITIES: No edema of feet. SKIN: No rash, no masses palpable. NEUROLOGICAL: The patient is awake, alert, oriented x3, mood and affect normal. Results CBC & Chem 7: 08/30/24 00:38 08/30/24 00:38 Labs: Abnormal Lab Results - Last 24 Hours (Table) 08/30/24 08/30/24 08/30/24 Range/Units 00:38 00:38 00:38 Lymphocytes # 0.9 L (1.0-4.8) k/uL ESR (0-20) mm/Hr D-Dimer 12.95 H (<0.60) mg/L FEU Glucose 142 H (74-99) mg/dL AST 76 H (14-36) U/L ALT 73 H (4-34) U/L C-Reactive Protein (<1.0) mg/dL 08/30/24 08/30/24 Range/Units 14:49 14:49 Lymphocytes # (1.0-4.8) k/uL ESR 43 H (0-20) mm/Hr D-Dimer (<0.60) mg/L FEU Glucose (74-99) mg/dL AST (14-36) U/L ALT (4-34) U/L C-Reactive Protein 3.9 H (<1.0) mg/dL Assessment and Plan (1) Influenza A Current Visit: No Status: Acute Code(s): J10.1 - FLU DUE TO OTH IDENT INFLUENZA VIRUS W OTH RESP MANIFEST SNOMED Code(s): 546394454 Plan: 1patient presented to hospital with increasing shortness of breath along with chest pain and did have a cough patient did have a negative CT angiogram of the chest and lower extremity Doppler as well as chest x-ray clinically not behaving as pneumonia with no fever or elevated white count 2-patient did tested positive for influenza A 3-recommend 5-day course of Tamiflu 75 mg twice daily 4-antibiotics can be safely discontinued We will follow on clinical condition and cultures to further adjust medication if needed Thank you for this consultation we will follow the patient along with you Dictation was produced using [employer] dictation software. please excuse any grammatical, word or spelling errors. Time with Patient: Greater than 30
[2024-08-31 06:19] LABS: Basophils % (A) 0 %; Eosinophils # (A) 0.1 k/uL (0-0.7); Eosinophils % (A) 1 %; HCT 45.4 % (34.0-46.0); HGB 13.7 gm/dL (11.4-16.0); Lymphocytes # (A) 0.7 k/uL (1.0-4.8); Lymphocytes % (A) 9 %; MCV 89.8 fL (80.0-100.0); Monocytes # (A) 0.2 k/uL (0-1.0); Monocytes % (A) 2 %; Neutrophils # (A) 7.6 k/uL (1.3-7.7); Neutrophils % (A) 88 %; Platelet Count 304 k/uL (150-450); RBC 5.06 m/uL (3.80-5.40); RDW 14.3 % (11.5-15.5); WBC 8.6 k/uL (3.8-10.6)
[2024-08-31 06:42] LABS: ALT 101 U/L (4-34); AST 64 U/L (14-36); African American GFR (CKD) >90 (>60 ml/min/1.73 sqM); Albumin 4.2 g/dL (3.5-5.0); Alkaline Phosphatase 96 U/L (38-126); Anion Gap 11 mmol/L; Blood Urea Nitrogen 9 mg/dL (7-17); Calcium 9.3 mg/dL (8.4-10.2); Carbon Dioxide 22 mmol/L (22-30); Chloride 105 mmol/L (98-107); Glucose 193 mg/dL (74-99); Non-African American GFR(CKD) >90 (>60 ml/min/1.73 sqM); Potassium 4.4 mmol/L (3.5-5.1); Sodium 138 mmol/L (137-145); Total Bilirubin 0.3 mg/dL (0.2-1.3); Total Protein 7.2 g/dL (6.3-8.2)
[2024-08-31] MEDS: CHOLECALCIFEROL 25 MCG (1000 IU) TABLET PO SCH (09:16)
[2024-08-31] MEDS: MULTIVITAMINS, THERA 1 EACH TAB PO SCH (09:16)
[2024-08-31] MEDS: FERROUS SULFATE 325 MG TAB PO SCH (09:16)
[2024-08-31] MEDS: LOSARTAN 50 MG TAB PO SCH (09:16)
--- NOTE | 2024-08-31 12:38 | P.PN ---
Subjective Progress Note Date: 08/31/24 Principal diagnosis: Acute hypoxic respiratory failure secondary to acute influenza A infection This is a very pleasant 39-year-old female patient with a known history of obesity, hypertension, polycystic ovarian syndrome, smoker. She was seen yesterday in the emergency department for shortness of breath cough and congestion was diagnosed with influenza A and was treated and discharged to home. She presented back to the emergency room just after midnight today after developing right sided chest pain that was radiating across her upper back. She stated the pain was sharp and worse with deep inspiration. She does get due to have body aches, cough fever and chills. CT angiogram ruled out pulmonary embolism. No aortic aneurysm or dissection. No acute pulmonary parenchymal abnormality identified. Doppler of the lower extremities ruled out DVT. D- dimer 12.95. Sodium 137. Potassium 4.0. Bicarb 24. BUN 13. Creatinine 0.63. Glucose 142. AST 76. ALT 73. Troponin negative. The patient was about to be discharged from the emergency room again however she developed O2 saturations in the 80s on room air oxygen and was changed to admission status. We are c onsulted for the same. She is seen in the emergency department. Currently sitting up on a stretcher. Awake and alert in no acute distress. She does have a loose congested cough. She was 89% saturation on room air. She is 94% on 2 L/min per nasal cannula. Currently afebrile. Hemodynamically stable. Patient was seen today on 08/31/2024, patient is doing much better today, breathing a lot easier, less shortness of breath, some intermittent cough and some wheezing. But significantly improved compared to yesterday. O2 sat is 96% on 2 L. CBC is relatively normal basic metabolic profile is normal D-dimer is down to 1.63. Objective - Vital Signs Vital signs: Vital Signs Temp 97.8 F 08/31/24 08:00 Pulse 96 08/31/24 10:01 Resp 18 08/31/24 10:01 BP 137/82 08/31/24 08:00 Pulse Ox 96 08/31/24 09:54 FiO2 Intake & Output 08/30/24 08/31/24 08/31/24 18:59 06:59 18:59 Intake Total 700 Balance 700 Weight 153.314 kg Intake: Oral 700 Other: # Voids 2 - Exam GENERAL EXAM: Alert, very pleasant, obese 39-year-old female, on 2 L nasal cannula, fairly comfortable in no apparent distress. HEAD: Normocephalic. EYES: Normal reaction of pupils, equal size. NOSE: Clear with pink turbinates. THROAT: No erythema or exudates. NECK: No masses, no JVD. CHEST: No chest wall deformity. LUNGS: Equal air entry with few scattered rhonchi. CVS: S1 and S2 normal with no audible murmur, regular rhythm. ABDOMEN: No hepatosplenomegaly, normal bowel sounds, no guarding or rigidity. SPINE: No scoliosis or deformity SKIN: No rashes CENTRAL NERVOUS SYSTEM: No focal deficits, tone is normal in all 4 extremities. EXTREMITIES: There is no peripheral edema. No clubbing, no cyanosis. Peripheral pulses are intact. - Labs CBC & Chem 7: 08/31/24 06:00 08/31/24 06:00 Labs: Abnormal Lab Results - Last 24 Hours (Table) 08/30/24 08/30/24 08/31/24 Range/Units 14:49 14:49 06:00 MCHC 30.0 L (31.0-37.0) g/dL Lymphocytes # 0.7 L (1.0-4.8) k/uL ESR 43 H (0-20) mm/Hr D-Dimer (<0.60) mg/L FEU Glucose (74-99) mg/dL AST (14-36) U/L ALT (4-34) U/L C-Reactive Protein 3.9 H (<1.0) mg/dL 08/31/24 08/31/24 Range/Units 06:00 06:00 MCHC (31.0-37.0) g/dL Lymphocytes # (1.0-4.8) k/uL ESR (0-20) mm/Hr D-Dimer 1.63 H (<0.60) mg/L FEU Glucose 193 H (74-99) mg/dL AST 64 H (14-36) U/L ALT 101 H (4-34) U/L C-Reactive Protein (<1.0) mg/dL Assessment and Plan Assessment: Impression: Acute hypoxic respiratory failure Acute influenza A infection Polycystic ovarian syndrome Morbid obesity Lifelong non-smoker Recommendation: Continue Tamiflu, patient to finish a full 5-day course of Tamiflu Continue bronchodilators and could consider placing the patient on Medrol Dosepak to replace Solu-Medrol And patient could be taken off oxygen and she may do well on room air her O2 sat show is relatively high on 2 L nasal cannula Consider discharge planning and I will clear the patient for discharge to have follow-up on outpatient basis. Time with Patient: Less than 30
[2024-08-31] MEDS: methylPREDNISolone 4 MG TAB TAPER PO SCH (14:43)
--- NOTE | 2024-08-31 15:56 | P.PN ---
Subjective Progress Note Date: 08/31/24 Principal diagnosis: Reason for follow-up is acute influenza A Patient is a 39-year-old female with a past medical history significant for hypertension reflux asthma presenting to the hospital for evaluation of increasing right-sided chest pain and also cough which was diagnosed with influenza a CT chest was negative for PE or pneumonia. On today's evaluation that is 08/31/2024, Patient is afebrile this morning patient mention improvement her chest pain as well as cough and is breathing more comfortably currently on 2 L nasal cannula oxygen no nausea vomiting abd ominal pain or diarrhea. Patient white count is 8.6, creatinine 0.52 electrolytes are normal liver e nzymes slightly elevated 0.14 Objective - Vital Signs Vital signs: Vital Signs Temp 97.8 F 08/31/24 08:00 Pulse 96 08/31/24 10:01 Resp 18 08/31/24 10:01 BP 137/82 08/31/24 08:00 Pulse Ox 96 08/31/24 09:54 FiO2 Intake & Output 08/30/24 08/31/24 08/31/24 18:59 06:59 18:59 Intake Total 700 Balance 700 Weight 153.314 kg Intake: Oral 700 Other: # Voids 2 - Exam GENERAL DESCRIPTION: Middle-age female up in bed in no distress RESPIRATORY SYSTEM: Unlabored breathing , decreased breath sounds at bases HEART: S1 S2 regular rate and rhythm , ABDOMEN: Soft , no tenderness EXTREMITIES: No edema feet - Labs CBC & Chem 7: 08/31/24 06:00 08/31/24 06:00 Labs: Abnormal Lab Results - Last 24 Hours (Table) 08/30/24 08/31/24 08/31/24 Range/Units 14:49 06:00 06:00 MCHC 30.0 L (31.0-37.0) g/dL Lymphocytes # 0.7 L (1.0-4.8) k/uL ESR 43 H (0-20) mm/Hr D-Dimer 1.63 H (<0.60) mg/L FEU Glucose (74-99) mg/dL AST (14-36) U/L ALT (4-34) U/L 08/31/24 Range/Units 06:00 MCHC (31.0-37.0) g/dL Lymphocytes # (1.0-4.8) k/uL ESR (0-20) mm/Hr D-Dimer (<0.60) mg/L FEU Glucose 193 H (74-99) mg/dL AST 64 H (14-36) U/L ALT 101 H (4-34) U/L Assessment and Plan (1) Influenza A Current Visit: No Status: Acute Code(s): J10.1 - FLU DUE TO OTH IDENT INFLUENZA VIRUS W OTH RESP MANIFEST SNOMED Code(s): 042585831 Plan: 1patient presented to hospital with increasing shortness of breath along with chest pain and did have a cough patient did have a negative CT angiogram of the chest and lower extremity Doppler as well as chest x-ray clinically not behaving as pneumonia with no fever or elevated white count 2-patient did tested positive for influenza A with the patient will continue with the Tamiflu to finish a 5-day course of therapy Dictation was produced using [employer] dictation software. please excuse any grammatical, word or spelling errors. Time with Patient: Less than 30
--- NOTE | 2024-08-31 20:31 | PN ---
PROGRESS NOTE DATE OF SERVICE: 08/31/2024 SUBJECTIVE: This is a 39-year-old woman, who was admitted with asthma, acute exacerbation with possible acute purulent tracheobronchitis, on IV antibiotics and steroids. No chest pain. No palpitation. PHYSICAL EXAMINATION: VITAL SIGNS: Pulse is 96, blood pressure 137/82, respirations 18. CHEST: A few scattered rhonchi. ABDOMEN: Soft. NERVOUS SYSTEM: No focal deficits. LABORATORY DATA: D-dimer is 1.63. CT angio showed no acute abnormality. ASSESSMENT: 1. Asthma with acute exacerbation with acute purulent tracheobronchitis with no evidence for definite pneumonia. 2. Elevated D-dimer with negative CT angio as well as ultrasound of the legs, possibly secondary infection. 3. Elevated AST and ALT. 4. Lymphopenia, mild. 5. History of hypertension. 6. History of polycystic ovarian syndrome. RECOMMENDATIONS: Continue current medications. Continue antibiotics and steroids. Otherwise, repeat labs in the morning. Avoid nephrotoxic medications and avoid hepatotoxic medications and guarded prognosis. Further recommendations to follow. See orders for details. MMODL / IJN: [id number] /
[2024-08-31] MEDS: PANTOPRAZOLE 40 MG TABLET PO SCH (21:02)
[2024-09-01] MEDS: ALBUTEROL NEBULIZED 2.5 MG/3 ML INHALATION PRN (06:14)
[2024-09-01 06:31] LABS: Basophils % (A) 0 %; Eosinophils # (A) 0.1 k/uL (0-0.7); Eosinophils % (A) 1 %; HCT 43.9 % (34.0-46.0); HGB 14.2 gm/dL (11.4-16.0); Hypochromasia Slight; Lymphocytes # (A) 2.1 k/uL (1.0-4.8); Lymphocytes % (A) 14 %; MCH 27.8 pg (25.0-35.0); MCHC 32.3 g/dL (31.0-37.0); MCV 86.2 fL (80.0-100.0); Mean Platelet Volume 7.5; Monocytes # (A) 0.9 k/uL (0-1.0); Monocytes % (A) 6 %; Neutrophils # (A) 12.2 k/uL (1.3-7.7); Neutrophils % (A) 79 %; Platelet Count 341 k/uL (150-450); RBC 5.09 m/uL (3.80-5.40); RDW 14.1 % (11.5-15.5); WBC 15.5 k/uL (3.8-10.6)
[2024-09-01 07:31] LABS: ALT 77 U/L (4-34); AST 45 U/L (14-36); African American GFR (CKD) >90 (>60 ml/min/1.73 sqM); Alkaline Phosphatase 90 U/L (38-126); Anion Gap 10 mmol/L; Blood Urea Nitrogen 19 mg/dL (7-17); Calcium 9.2 mg/dL (8.4-10.2); Carbon Dioxide 26 mmol/L (22-30); Chloride 103 mmol/L (98-107); Glucose 126 mg/dL (74-99); Non-African American GFR(CKD) >90 (>60 ml/min/1.73 sqM); Potassium 3.7 mmol/L (3.5-5.1); Sodium 139 mmol/L (137-145); Total Bilirubin 0.3 mg/dL (0.2-1.3); Total Protein 6.8 g/dL (6.3-8.2)
[2024-09-01 08:07] VITALS: BP 149/78; PULSE 76; RESP 17; TEMP 97.7
--- NOTE | 2024-09-01 12:58 | P.PN ---
Subjective Progress Note Date: 09/01/24 Principal diagnosis: Acute hypoxic respiratory failure secondary to acute influenza A infection This is a very pleasant 39-year-old female patient with a known history of obesity, hypertension, polycystic ovarian syndrome, smoker. She was seen yesterday in the emergency department for shortness of breath cough and congestion was diagnosed with influenza A and was treated and discharged to home. She presented back to the emergency room just after midnight today after developing right sided chest pain that was radiating across her upper back. She stated the pain was sharp and worse with deep inspiration. She does get due to have body aches, cough fever and chills. CT angiogram ruled out pulmonary embolism. No aortic aneurysm or dissection. No acute pulmonary parenchymal abnormality identified. Doppler of the lower extremities ruled out DVT. D- dimer 12.95. Sodium 137. Potassium 4.0. Bicarb 24. BUN 13. Creatinine 0.63. Glucose 142. AST 76. ALT 73. Troponin negative. The patient was about to be discharged from the emergency room again however she developed O2 saturations in the 80s on room air oxygen and was changed to admission status. We are c onsulted for the same. She is seen in the emergency department. Currently sitting up on a stretcher. Awake and alert in no acute distress. She does have a loose congested cough. She was 89% saturation on room air. She is 94% on 2 L/min per nasal cannula. Currently afebrile. Hemodynamically stable. Patient was seen today on 08/31/2024, patient is doing much better today, breathing a lot easier, less shortness of breath, some intermittent cough and some wheezing. But significantly improved compared to yesterday. O2 sat is 96% on 2 L. CBC is relatively normal basic metabolic profile is normal D-dimer is down to 1.63. 09/01/2024 Patient is doing much better today, on room air, not in any distress, hence I will clear the patient for discharge home today. Objective - Vital Signs Vital signs: Vital Signs Temp 97.7 F 09/01/24 08:00 Pulse 76 09/01/24 08:00 Resp 17 09/01/24 08:00 BP 149/78 09/01/24 08:00 Pulse Ox 97 09/01/24 08:00 FiO2 Intake & Output 08/31/24 09/01/24 09/01/24 18:59 06:59 18:59 Intake Total 1300 Balance 1300 Intake: Intake, IV Titration 550 Amount Azithromycin 500 mg In 250 Sodium Chloride 0.9% 250 ml @ 250 mls/hr IVPB DAILY [facility] Rx#:[id number] Sodium Chloride 0.9% 1, 200 000 ml @ 20 mls/hr IV . Q24H [facility] Rx#:[id number] cefTRIAXone 1 gm In 100 Sodium Chloride 0.9% 50 ml @ 100 mls/hr IVPB Q24HR [facility] Rx#:[id number] Oral 750 Other: # Voids 2 4 # Bowel Movements 0 - Exam GENERAL EXAM: Alert, very pleasant, obese 39-year-old female, on room air, not in distress HEAD: Normocephalic. EYES: Normal reaction of pupils, equal size. NOSE: Clear with pink turbinates. THROAT: No erythema or exudates. NECK: No masses, no JVD. CHEST: No chest wall deformity. LUNGS: Diminished breath sound bilaterally no rhonchi no wheezes CVS: S1 and S2 normal with no audible murmur, regular rhythm. ABDOMEN: No hepatosplenomegaly, normal bowel sounds, no guarding or rigidity. SKIN: No rashes CENTRAL NERVOUS SYSTEM: No focal deficits, tone is normal in all 4 extremities. EXTREMITIES: There is no peripheral edema. No clubbing, no cyanosis. Peripheral pulses are intact. - Labs CBC & Chem 7: 09/01/24 05:49 09/01/24 06:51 Labs: Abnormal Lab Results - Last 24 Hours (Table) 09/01/24 09/01/24 Range/Units 05:49 06:51 WBC 15.5 H (3.8-10.6) k/uL Neutrophils # 12.2 H (1.3-7.7) k/uL BUN 19 H (7-17) mg/dL Glucose 126 H (74-99) mg/dL AST 45 H (14-36) U/L ALT 77 H (4-34) U/L Microbiology - Last 24 Hours (Table) 08/30/24 14:49 Blood Culture - Preliminary Blood Assessment and Plan Assessment: Impression: Acute hypoxic respiratory failure Acute influenza A infection Polycystic ovarian syndrome Morbid obesity Lifelong non-smoker Recommendation: Continue Tamiflu, patient to finish a full 5-day course of Tamiflu Continue bronchodilators Will clear for discharge home today and follow-up on outpatient basis Time with Patient: Less than 30
--- NOTE | 2024-09-01 17:48 | P.PN ---
Subjective Progress Note Date: 09/01/24 Principal diagnosis: Reason for follow-up is acute influenza A Patient is a 39-year-old female with a past medical history significant for hypertension reflux asthma presenting to the hospital for evaluation of increasing right-sided chest pain and also cough which was diagnosed with influenza a CT chest was negative for PE or pneumonia. On today's evaluation that is 09/01/2024,the patient denies any fever or any chills, patient is breathing comfortably on room air, the patient mention improving the chest pain did have some cough continues to be determined no [facility] vomiting no abdominal pain no diarrhea. Next the patient white count is 15.5 creatinine 0.60 blood culture negative Objective - Vital Signs Vital signs: Vital Signs Temp 97.7 F 09/01/24 08:00 Pulse 76 09/01/24 08:00 Resp 17 09/01/24 08:00 BP 149/78 09/01/24 08:00 Pulse Ox 97 09/01/24 08:00 FiO2 Intake & Output 08/31/24 09/01/24 09/01/24 18:59 06:59 18:59 Intake Total 1300 Balance 1300 Intake: Intake, IV Titration 550 Amount Azithromycin 500 mg In 250 Sodium Chloride 0.9% 250 ml @ 250 mls/hr IVPB DAILY [facility] Rx#:[id number] Sodium Chloride 0.9% 1, 200 000 ml @ 20 mls/hr IV . Q24H [facility] Rx#:[id number] cefTRIAXone 1 gm In 100 Sodium Chloride 0.9% 50 ml @ 100 mls/hr IVPB Q24HR [facility] Rx#:[id number] Oral 750 Other: # Voids 2 4 # Bowel Movements 0 - Exam GENERAL DESCRIPTION: Middle-age female up in bed in no distress RESPIRATORY SYSTEM: Unlabored breathing , decreased breath sounds at bases HEART: S1 S2 regular rate and rhythm , ABDOMEN: Soft , no tenderness EXTREMITIES: No edema feet - Labs CBC & Chem 7: 09/01/24 05:49 09/01/24 06:51 Labs: Abnormal Lab Results - Last 24 Hours (Table) 09/01/24 09/01/24 Range/Units 05:49 06:51 WBC 15.5 H (3.8-10.6) k/uL Neutrophils # 12.2 H (1.3-7.7) k/uL BUN 19 H (7-17) mg/dL Glucose 126 H (74-99) mg/dL AST 45 H (14-36) U/L ALT 77 H (4-34) U/L Microbiology - Last 24 Hours (Table) 08/30/24 14:49 Blood Culture - Preliminary Blood Assessment and Plan (1) Influenza A Status: Acute Code(s): J10.1 - FLU DUE TO OTH IDENT INFLUENZA VIRUS W OTH RESP MANIFEST SNOMED Code(s): 637923881 (2) Leukocytosis Status: Acute Code(s): D72.829 - ELEVATED WHITE BLOOD CELL COUNT, UNSPECIFIED SNOMED Code(s): 023689045 Plan: 1patient presented to hospital with increasing shortness of breath along with chest pain and did have a cough patient did have a negative CT angiogram of the chest and lower extremity Doppler as well as chest x-ray clinically not behaving as pneumonia with no fever or elevated white count 2-patient did tested positive for influenza A patient to continue with Tamiflu to finish a 5-day course of therapy 3leukocytosis more likely steroid related as no evidence of any worsening in fection Dictation was produced using [employer] dictation software. please excuse any grammatical, word or spelling errors. Time with Patient: Less than 30
--- NOTE | 2024-09-04 11:22 | P.DS ---
Providers Date of admission: 08/30/24 08:32 Expected date of discharge: 09/01/24 Attending physician: Dayna Alves Consults: 08/30/24 08:31 Consult Physician Routine Consulting Provider: Bar Reilly Consult Reason/Comments: influenza A, hypoxia Do you want consulting provider notified?: Yes 08/30/24 13:25 Consult Physician Routine Consulting Provider: Rubi Gonzalez Consult Reason/Comments: sepsis Do you want consulting provider notified?: Yes Primary care physician: Geetha Stephens Hospital Course: Final diagnosis Asthma with acute exacerbation with acute purulent tracheobronchitis with no evidence for definite pneumonia Elevated D-dimer, PE ruled out elevated ALT/AST, recommend outpatient labs and monitoring Mild lymphopenia History of hypertension Morbid obesity with a BMI of 58.0 History of PCOS GI prophylaxis DVT prophylaxis Full code Discharge disposition Patient is being discharged in a stable condition with guarded prognosis to home. Patient will follow-up with Dr. Stephens in the outpatient setting upon discharge. Patient is to continue with current medications as prescribed below. Total time taken is greater than 35 minutes. Hospital course This is a 39-year-old female who was recently admitted with cough and congestion that has been ongoing with failure of outpatient treatment and closely monitored. Patient was noted to have influenza A as well as acute asthma exacerbation with purulent tracheobronchitis. Patient maintained on steroids and breathing treatments showing some improvement although slowly improving. Patient did have an elevated D-dimer and underwent CT angio which was negative for PE. Patient to complete Tamiflu and will continue a quick steroid taper recommending outpatient follow-up with pulmonary as well. Patient reports to feeling better and would like to go home. Currently no reports of chest pain, shortness of breath, or palpitations. Patient is afebrile. No reports of nausea or vomiting and patient is tolerating diet. Patient will be discharged home today. Physical exam: Gen: This is a 39-year-old female who is awake, alert and oriented x 3, well- developed, well-nourished, morbidly obese HEENT: Head is atraumatic, normocephalic. Pupils equal, round. Sclerae is anicteric. NECK: Supple. No JVD. No lymphadenopathy. No thyromegaly. LUNGS: Diminished breath sounds bilaterally with some scattered expiratory wheezes, coarse rhonchi and some mild bronchospasms noted on exam. No intercostal retractions. HEART: S1, S2 are muffled ABDOMEN: Soft. Obese bowel sounds are present. No masses. No tenderness. EXTREMITIES: No pedal edema. No calf tenderness. NEUROLOGICAL: Patient is awake, alert and oriented x3. Cranial nerves 2 through 12 are grossly intact. Please refer to medication reconciliation sheet for a list of medications. The impression and plan of care has been dictated by Lori Guillen, Nurse Practitioner as directed. Dr. Long MD I have performed a history and examination and MDM of this patient, discussed the same with the dictator, and agree with the dictator's assessment and plan as written ,documented as a scribe. Based on total visit time, I have performed more than 50% of the visit. Patient Condition at Discharge: Fair Plan - Discharge Summary New Discharge Prescriptions: New cefuroxime axetiL [Ceftin] 500 mg PO BID 5 Days #10 tab Albuterol Inhaler [Ventolin Hfa Inhaler] 2 puff INHALATION Q6H PRN #1 each PRN Reason: Shortness Of Breath methylPREDNISolone Dose Pack [Medrol Dose Pack] See Taper PO DAILY #21 tab Pantoprazole [Protonix] 40 mg PO BID #30 tab Budesonide-Formot 160-4.5 Mcg [Symbicort 160-4.5 Mcg Inhaler] 2 puff INHALATION RT-BID 30 Days #1 each Acetaminophen Tab [Tylenol] 650 mg PO Q6HR PRN tab PRN Reason: Mild Pain Or Fever > 100.5 Azithromycin [Zithromax] 500 mg PO DAILY 5 Days #5 tab Continue metFORMIN HCL [Glucophage] 500 mg PO BID Ferrous Sulfate [Iron (65 MG Elemental)] 325 mg PO DAILY Multivitamins, Thera [Multivitamin (formulary)] 1 tab PO DAILY Oseltamivir [Tamiflu] 75 mg PO Q12HR #10 cap Cholecalciferol [Vitamin D3 (25 Mcg = 1000 Iu)] 25 mcg PO DAILY amLODIPine [Norvasc] 10 mg PO DAILY Losartan Potassium 100 mg PO DAILY Discharge Medication List metFORMIN HCL [Glucophage] 500 mg PO BID 07/29/15 [History] Cholecalciferol [Vitamin D3 (25 Mcg = 1000 Iu)] 25 mcg PO DAILY 07/27/24 [History] Ferrous Sulfate [Iron (65 MG Elemental)] 325 mg PO DAILY 07/27/24 [History] Multivitamins, Thera [Multivitamin (formulary)] 1 tab PO DAILY 07/27/24 [History] Losartan Potassium 100 mg PO DAILY 08/27/24 [History] amLODIPine [Norvasc] 10 mg PO DAILY 08/27/24 [History] Oseltamivir [Tamiflu] 75 mg PO Q12HR #10 cap 08/29/24 [Rx] Acetaminophen Tab [Tylenol] 650 mg PO Q6HR PRN tab 09/01/24 [Rx] Albuterol Inhaler [Ventolin Hfa Inhaler] 2 puff INHALATION Q6H PRN #1 each 09/01/24 [Rx] Azithromycin [Zithromax] 500 mg PO DAILY 5 Days #5 tab 09/01/24 [Rx] Budesonide-Formot 160-4.5 Mcg [Symbicort 160-4.5 Mcg Inhaler] 2 puff INHALATION RT-BID 30 Days #1 each 09/01/24 [Rx] Pantoprazole [Protonix] 40 mg PO BID #30 tab 09/01/24 [Rx] cefuroxime axetiL [Ceftin] 500 mg PO BID 5 Days #10 tab 09/01/24 [Rx] methylPREDNISolone Dose Pack [Medrol Dose Pack] See Taper PO DAILY #21 tab 09/01/24 [Rx] Follow up Appointment(s)/Referral(s): Bar Reilly MD [STAFF PHYSICIAN] - 1-2 days (Please call office for appointment.) Geetha Stephens DO [Primary Care Provider] - 1-2 days Patient Instructions/Handouts: Chest Pain (ED) Activity/Diet/Wound Care/Special Instructions: Activity limited until follow-up Follow-up with primary care provider on discharge Follow-up with pulmonary outpatient Continue taking medications as prescribed Continue with incentive spirometer use at least 10 times every hour while awake Continue Medrol Dosepak Continue antibiotics until finished Continue wearing a mask Treat fever and/or minor aches and pains with Tylenol and/or Motrin Encourage fluids and rest Discharge Disposition: HOME SELF-CARE
== END 2024-09-01 14:10 | disposition home or self-care (01) | DRG 193 ==
LOC: EC 23:41 → 4SSUR 08-30 08:32 → 1SOBS 08-30 19:24
PROVIDERS: ADMIT Hospitalist; ATTEND Hospitalist
DX: J10.1 Influenza due to other identified influenza virus with other respiratory manifestations (principal); J96.01 Acute respiratory failure with hypoxia; J44.1 Chronic obstructive pulmonary disease with (acute) exacerbation; J45.901 Unspecified asthma with (acute) exacerbation; N17.9 Acute kidney failure, unspecified; Z68.43 Body mass index [BMI] 50.0-59.9, adult; D72.810 Lymphocytopenia; E11.9 Type 2 diabetes mellitus without complications; I10 Essential (primary) hypertension; K74.01 Hepatic fibrosis, early fibrosis; E66.01 Morbid (severe) obesity due to excess calories; K21.9 Gastro-esophageal reflux disease without esophagitis; E28.2 Polycystic ovarian syndrome; Z87.891 Personal history of nicotine dependence; L30.9 Dermatitis, unspecified; I25.10 Atherosclerotic heart disease of native coronary artery without angina pectoris; Z79.84 Long term (current) use of oral hypoglycemic drugs; Z79.899 Other long term (current) drug therapy; Z82.49 Family history of ischemic heart disease and other diseases of the circulatory system; Z90.49 Acquired absence of other specified parts of digestive tract
CPT/HCPCS: 36415; 71045; 71275; 80053; 84145; 84484; 85025; 85379; 85610; 85652; 85730; 86140; 87040; 93005; 93970; 94640; 94760; 96365; 96366; 96368; 96372; 96375; 96376; 99285

== ENCOUNTER → 2024-09-16 | Outpatient (CLI) | payer BC ==
--- NOTE | 2024-09-17 07:42 | MM ---
Reason for Exam: Screening (asymptomatic). Baseline mammogram. Patient History: Menarche at age 11. First Full-Term at age 24. Maternal aunt had breast cancer. Risk Values: Miryam 5 year model risk: 0.6%. NCI Lifetime model risk: 11.1%. Prior Study Comparison: Patient's first Mammogram. Tissue Density: The breasts are almost entirely fatty. Findings: Analyzed By CAD. There is no suspicious group of microcalcifications or new suspicious mass in either breast. Overall Assessment: Negative, BI-RAD 1 Management: Screening Mammogram of both breasts in 1 year. . Patient should continue monthly self-breast exams. A clinical breast exam by your physician is recommended on an annual basis. This exam should not preclude additional follow-up of suspicious palpable abnormalities. Note on Miryam scores and lifetime risk: 1. A Miryam score greater than 3% is considered moderate risk. If this is the case, consider specialist referral to assess eligibility for a risk reducing agent. 2. If overall lifetime risk for the development of breast cancer is 20% or higher, the patient may qualify for future screening with alternating mammogram and breast MRI. [facility], , 09/17/2024 7:38 AM. Electronically signed and approved by: Artur Taylor M.D. Radiologis
== END | disposition home or self-care (01) ==
LOC: RADMAMWWP 15:54
PROVIDERS: ATTEND Family Medicine
DX: Z12.31 Encounter for screening mammogram for malignant neoplasm of breast (principal); R92.313 Mammographic fatty tissue density, bilateral breasts; Z80.3 Family history of malignant neoplasm of breast
CPT/HCPCS: 77063; 77067

== ENCOUNTER → 2024-09-21 | Day surgery (SDC) | payer BC ==
[~2024-09-21] MED LIST: LIDOCAINE 1% INJ 10MG/ML (20 ML MDV) ONE; MIDAZOLAM 2 MG/2 ML VIAL ONE; PROPOFOL 10 MG/ML 20 ML VIAL IV ONE
[2024-09-21 09:07] VITALS: TEMP 97.3
[2024-09-21 09:15] LABS: Glucose,Whole Blood 146 mg/dL (70-110)
[2024-09-21] MEDS: IV FLUID CONTINUATION 1,000 ML IV ONE (09:15)
[2024-09-21] MEDS: LACTATED RINGERS 1,000 ML IV SCH (09:19)
--- NOTE | 2024-09-21 09:39 | P.GSHP ---
History of Present Illness H&P Date: 09/21/24 Chief Complaint: GERD, presurgical 39-year-old female here for upper endoscopy. Patient seen in the bariatric center in July. Patient remains interested in bariatric surgery. No dysphagia. GERD symptoms controlled with [id number] medications. States she only has reflux with spicy foods. Past Medical History Past Medical History: Asthma, Diabetes Mellitus, GERD/Reflux, Hypertension, Skin Disorder Additional Past Medical History / Comment(s): pcos, HTN during , eczema, prediabetes, hx kidney stones History of Any Multi-Drug Resistant Organisms: None Reported Past Surgical History: Appendectomy, Section, Cholecystectomy Additional Past Surgical History / Comment(s): lithotripsy Past Anesthesia/Blood Transfusion Reactions: No Reported Reaction Additional Past Anesthesia/Blood Transfusion Reaction / Comment(s): no hx blood transfusion Smoking Status: Never smoker - Past Family History Mother Family Medical History: Hypertension, Seizure Disorder Additional Family Medical History / Comment(s): Grand Mal Seizures, well controlled Father Family Medical History: Diabetes Mellitus, Hyperlipidemia, Hypertension Medications and Allergies Home Medications Medication Instructions Recorded Confirmed Type metFORMIN HCL [Glucophage] 500 mg PO BID 07/29/15 09/21/24 History Cholecalciferol [Vitamin D3 (25 25 mcg PO DAILY 07/27/24 09/16/24 History Mcg = 1000 Iu)] Ferrous Sulfate [Iron (65 MG 325 mg PO DAILY 07/27/24 09/16/24 History Elemental)] Multivitamins, Thera [Multivitamin 1 tab PO DAILY 07/27/24 09/16/24 History (formulary)] Losartan Potassium 100 mg PO DAILY 08/27/24 09/16/24 History amLODIPine [Norvasc] 10 mg PO DAILY 08/27/24 09/16/24 History Albuterol Inhaler [Ventolin Hfa 2 puff INHALATION Q6H PRN #1 each 09/01/24 09/16/24 Rx Inhaler] Pantoprazole [Protonix] 40 mg PO BID #30 tab 09/01/24 09/21/24 Rx Budesonide-Formot 160-4.5 Mcg 2 puff INHALATION RT-BID PRN 09/16/24 09/16/24 History [Symbicort 160-4.5 Mcg Inhaler] Allergies Allergy/AdvReac Type Severity Reaction Status Date / Time No Known Allergies Allergy Verified 09/21/24 08:54 Surgical - Exam Vital Signs Temp Pulse Resp BP Pulse Ox 97.3 F L 112 H 16 178/89 96 09/21/24 09:05 09/21/24 09:05 09/21/24 09:05 09/21/24 09:05 09/21/24 09:05 Physical exam: General: Well-developed, well-nourished HEENT: Normocephalic, sclerae nonicteric Abdomen: Nontender, nondistended Extremities: No edema Neuro: Alert and oriented Results - Labs Abnormal Lab Results - Last 24 Hours (Table) 09/21/24 Range/Units 09:11 POC Glucose (mg/dL) 146 H (70-110) mg/dL Assessment and Plan (1) GERD (gastroesophageal reflux disease) Narrative/Plan: Will proceed with upper endoscopy at this time. Current Visit: Yes Status: Acute Code(s): K21.9 - GASTRO-ESOPHAGEAL REFLUX DISEASE WITHOUT ESOPHAGITIS SNOMED Code(s): 174759109
[2024-09-21 10:06] VITALS: BP 148/86; PULSE 105; RESP 16
--- NOTE | 2024-09-21 12:30 | P.PCN ---
Date of Procedure: 09/21/24 Procedure(s) Performed: Preoperative Dx: GERD, presurgical Postoperative Dx: Gastritis, hiatal hernia, mild distal esophagitis Procedure: EGD with Bx Anesthesia: Sedation Endoscopist: Dr. Jean Specimens: Antrum Endoscopic Procedure: The patient was on the endoscopy table in the left decubitus position. The Olympus gastroscope was inserted into the oropharynx and passed under direct visualization to the region of the third portion of the duodenum. From that point the scope was slowly withdrawn inspecting all surfaces carefully. There were no neoplastic inflammatory or polypoid lesions throughout the duodenum. The pylorus was widely patent. The stomach was carefully inspected. There was the patient had mild gastritis noted. A biopsy of the antrum took place to rule out H. pylori. Retroflexion revealed a small to medium sized hiatal hernia. The GE junction was present 2 cm above the tamie phragmatic hiatus. There was mild circumferential inflammatory changes that was less than 1 cm in length at the GE junction. The patient was starting to gag more as we were inspecting the distal esophagus. The patient's IV access was somewhat poor. I decided to remove the scope inspecting the remainder of the esophagus rather than do any biopsies here. No other additional abnormalities throughout the esophagus were noted. The patient was then taken to the recovery room in stable condition per anesthesia guidelines. Recommendations: Begin antiacid therapy. Await biopsy results. Follow-up bariatric clinic.
== END ==
LOC: ORWHC2ENDO 08:32
PROVIDERS: ATTEND Surgery
DX: K29.50 Unspecified chronic gastritis without bleeding (principal); K21.00 Gastro-esophageal reflux disease with esophagitis, without bleeding; K44.9 Diaphragmatic hernia without obstruction or gangrene; E11.9 Type 2 diabetes mellitus without complications; I10 Essential (primary) hypertension; J45.909 Unspecified asthma, uncomplicated; Z79.51 Long term (current) use of inhaled steroids; Z79.84 Long term (current) use of oral hypoglycemic drugs; Z87.442 Personal history of urinary calculi; Z90.49 Acquired absence of other specified parts of digestive tract; Z79.899 Other long term (current) drug therapy
CPT/HCPCS: 81025; 43239; J2250; J2003; J2704; 88305

== ENCOUNTER → 2024-10-04 | Outpatient (CLI) | payer BC ==
[2024-10-04 13:36] VITALS: BMI 59.3
== END ==
LOC: BARWHC3 12:57
PROVIDERS: ATTEND Surgery
DX: E66.01 Morbid (severe) obesity due to excess calories (principal); Z68.43 Body mass index [BMI] 50.0-59.9, adult
CPT/HCPCS: 97804

== ENCOUNTER → 2024-10-05 | Outpatient (CLI) | payer BC ==
[2024-10-05 14:30] VITALS: BP 172/100; PULSE 58; TEMP 98; BMI 59.7
--- NOTE | 2024-10-05 16:19 | P.BASOAP ---
Subjective Progress Note Date: 10/05/24 Principal diagnosis: Morbid obesity 3-year-old female returns after recent preoperative EGD workup. Patient had findings of gastritis and hiatal hernia. Hiatal hernia with small to medium size. She was started on antiacid therapy. Biopsy came back okay showing mild gastritis. H. pylori negative. Objective - Vital Signs Vital signs: Vital Signs Temp 98 F 10/05/24 14:28 Pulse 58 L 10/05/24 14:28 Resp BP 172/100 10/05/24 14:28 Pulse Ox FiO2 Intake & Output 10/04/24 10/05/24 10/05/24 18:59 06:59 18:59 Weight 157.85 kg - Exam Abdomen: Soft, nontender, nondistended Assessment/Plan (1) Morbid obesity with BMI of 50.0-59.9, adult Narrative/Plan: 3-year-old female with elevated BMI and recent findings of hiatal hernia on EGD. She and I discussed the options of weight loss surgery and detail. We reviewed the surgical consent form. Risks and benefits of both sleeve gastrectomy and gastric bypass discussed at length. Given the patient's hiatal hernia and her BMI of almost 60 there certainly are some advantages that the gastric bypass offers over sleeve gastrectomy. These advantages are worth considering further. She plans to discuss this further with her family and will notify me of her decision on which direction to proceed. Discussed that if sleeve gastrectomy was performed it would typically be performed at the time of the bariatric surgery. Plan: Date: 10/05/24 Initial Weight: 153.314 kg Initial BMI: 58.0 Current Weight: 157.85 kg Current BMI: 59.7 Type of Surgery: Total Volume in Band: Previous Volume: Volume Removed: Volume Added: Band Size:
== END ==
LOC: BARWHC3 13:48
PROVIDERS: ATTEND Surgery
DX: E66.01 Morbid (severe) obesity due to excess calories (principal); K21.9 Gastro-esophageal reflux disease without esophagitis; Z68.43 Body mass index [BMI] 50.0-59.9, adult
CPT/HCPCS: 99211

== ENCOUNTER → 2024-11-19 | Outpatient (CLI) | payer BC ==
[2024-11-19 15:08] LABS: INR 0.9 (<1.2); Partial Thromboplastin Time 23.8 sec (22.0-30.0); Prothrombin Time 10.6 sec (10.0-12.5)
[2024-11-19 19:00] LABS: HCT 42.2 % (37.2-46.3); HGB 13.3 g/dL (12.0-15.0); MCH 27.9 pg (27.0-32.0); MCHC 31.5 g/dL (32.0-37.0); MCV 88.5 FL (80.0-97.0); Mean Platelet Volume 9.3 FL (9.5-12.2); NRBC Per 100 WBC 0 X 10*3/uL (0.00-0.01); Platelet Count 400 X 10*3/uL (140-440); RBC 4.77 X 10*6/uL (4.10-5.20); RDW 13.4 % (11.5-14.5); WBC 16.81 X 10*3/uL (4.50-10.00)
[2024-11-19 20:11] LABS: % Iron Saturation 11.65 (12.00-45.00); ALT 38 U/L (8-44); AST 43 U/L (13-35); Albumin 4.2 g/dL (3.8-4.9); Albumin/Globulin Ratio 1.62 Ratio (1.60-3.17); Alkaline Phosphatase 101 U/L (41-126); BUN/Creat Ratio 18.14 Ratio (12.00-20.00); Blood Urea Nitrogen 12.7 mg/dL (9.0-27.0); Calcium 9.5 mg/dL (8.7-10.3); Carbon Dioxide 21.3 mmol/L (21.6-31.8); Chloride 100 mmol/L (96-109); Chol/HDL Ratio 5.17 Ratio; Globulin 2.6 g/dL (1.6-3.3); Glucose 130 mg/dL (70-110); Iron 46 UG/DL (50-170); LDL Cholesterol,Calculated 94.8 mg/dL (0.0-131.0); Magnesium 1.7 mg/dL (1.5-2.4); Phosphorus 3.3 mg/dL (2.4-5.1); Potassium 4.1 mmol/L (3.5-5.5); Sodium 138 mmol/L (135-145); Total Bilirubin 0.3 mg/dL (0.3-1.2); Total Iron Binding Capacity 395 UG/DL (228-460); Total Protein 6.8 g/dL (6.2-8.2)
[2024-11-19 22:33] LABS: Prealbumin 23.6 mg/dL (18.0-42.0)
[2024-11-21 21:41] LABS: Selenium 146 mcg/L (63-160)
[2024-11-22 10:42] LABS: Zinc, Serum 72 ug/dL (60-130)
[2024-11-23 06:48] LABS: Vitamin A 77 ug/dL (38-106)
[2024-11-23 10:47] LABS: Anabasine Urine <2.0 ng/mL (<2.0)
== END | disposition home or self-care (01) ==
LOC: LABWHC1 14:14
PROVIDERS: ATTEND Surgery Plastic and Reconstructive Surgery
DX: E89.1 Postprocedural hypoinsulinemia (principal); D50.8 Other iron deficiency anemias; K91.2 Postsurgical malabsorption, not elsewhere classified; E44.1 Mild protein-calorie malnutrition; E45 Retarded development following protein-calorie malnutrition; E55.9 Vitamin D deficiency, unspecified; K74.1 Hepatic sclerosis; N19 Unspecified kidney failure; T56.894A Toxic effect of other metals, undetermined, initial encounter
CPT/HCPCS: 36415; 80053; 80061; 80307; 80323; 82306; 82525; 82607; 82728; 82746; 83540; 83550; 83735; 83970; 84100; 84134; 84255; 84425; 84443; 84590; 84630; 85027; 85610; 85730

== ENCOUNTER → 2024-11-24 | Outpatient (CLI) | payer BC ==
[2024-11-24 16:23] VITALS: BP 144/94; PULSE 122; RESP 16; TEMP 97.7; BMI 55.6
--- NOTE | 2024-11-24 17:06 | P.BASOAP ---
Subjective Progress Note Date: 11/24/24 She has lost weight. Wants the bypass. Has cardiac risk assessment. She does not smoke. COnsent for bypass given. Has PCOS. Already on 2 week diet. Objective - Vital Signs Vital signs: Vital Signs Temp 97.7 F 11/24/24 16:20 Pulse 122 H 11/24/24 16:20 Resp 16 11/24/24 16:20 BP 144/94 11/24/24 16:20 Pulse Ox FiO2 Intake & Output 11/23/24 11/24/24 11/24/24 18:59 06:59 18:59 Weight 146.964 kg Assessment/Plan Plan: Date: 11/24/24 Initial Weight: 153.314 kg Initial BMI: 58.0 Current Weight: 146.964 kg Current BMI: 55.6 Type of Surgery: Total Volume in Band: Previous Volume: Volume Removed: Volume Added: Band Size:
== END ==
LOC: BARWHC3 15:54
PROVIDERS: ATTEND Surgery Plastic and Reconstructive Surgery
DX: E66.01 Morbid (severe) obesity due to excess calories (principal); Z68.43 Body mass index [BMI] 50.0-59.9, adult
CPT/HCPCS: 99211

== ENCOUNTER 2024-12-06 06:57 | Inpatient (IN) | payer BC ==
[~2024-12-06 06:57] MED LIST changes: +HEPARIN SODIUM,PORCINE 5,000 UNIT/ML 1 ML VIAL SQ PRN; -LIDOCAINE 1% INJ 10MG/ML (20 ML MDV) ONE; -MIDAZOLAM 2 MG/2 ML VIAL ONE; -PROPOFOL 10 MG/ML 20 ML VIAL IV ONE
[2024-12-06] MEDS: IV FLUID CONTINUATION 1,000 ML IV ONE ×3 (07:49→17:36)
[2024-12-06] MEDS: LACTATED RINGERS 1,000 ML IV SCH (07:58)
[2024-12-06] MEDS: CHLORHEXIDINE GLUCONATE 15 ML CUP MUCOUS MEM STA (07:58)
[2024-12-06] MEDS: ALVIMOPAN 12 MG CAPSULE PO PRN (07:58)
[2024-12-06] MEDS: ACETAMINOPHEN TAB 500 MG TAB PO PRN (07:58)
[2024-12-06] MEDS: ONDANSETRON 4 MG/2 ML VIAL IVP PRN (07:59)
[2024-12-06] MEDS: PANTOPRAZOLE 40 MG/10 ML VIAL IVP STA (07:59)
[2024-12-06 08:03] LABS: Glucose,Whole Blood 127 mg/dL (70-110)
[2024-12-06 08:18] LABS: Basophils # (A) 0.05 10*3/uL (0.00-0.10); Basophils % (A) 0.4 %; Eosinophils # (A) 0.32 10*3/uL (0.04-0.35); Eosinophils % (A) 2.6 %; HCT 38.4 % (37.2-46.3); HGB 12.9 g/dL (12.0-15.0); Lymphocytes # (A) 1.88 10*3/uL (0.90-5.00); Lymphocytes % (A) 15.2 %; MCH 29.1 pg (27.0-32.0); MCHC 33.6 g/dL (32.0-37.0); MCV 86.7 fL (80.0-97.0); Mean Platelet Volume 8.5 fL (9.5-12.2); Monocytes # (A) 0.67 10*3/uL (0.20-1.00); Monocytes % (A) 5.4 %; Neutrophils # (A) 9.38 10*3/uL (1.80-7.70); Platelet Count 332 10*3/uL (140-440); RBC 4.43 10*6/uL (4.10-5.20); WBC 12.35 10*3/uL (4.50-10.00)
--- NOTE | 2024-12-06 08:20 | P.GSHP ---
History of Present Illness H&P Date: 12/06/24 CHIEF COMPLAINT: Morbid obesity HISTORY OF PRESENT ILLNESS: Yelitza Landeros is a 39-year-old female who comes with lifelong morbid obesity. As result of morbid obesity, she has developed diabetes type 2, hypertensive heart disease, obstructive sleep apnea, hyperlipidemia, osteoarthritis of the hips and knees. She has completed medical supervised weight loss. She completed medical including cardiac assessment. She has completed psychological risk assessment. All surgical options were reviewed. She elected for gastric bypass. At height of 5 feet 4 inches, her ideal body weight is 144 pounds. She has lost over 30 pounds. She comes in with 316 pounds. She is 172 pounds overweight. PAST MEDICAL HISTORY: 1. Morbid obesity due to excess calories 2. Body mass index of 54.2 3. Osteoarthritis of the knees. 4. Osteoarthritis of the lower back. 5. Hypertensive heart disease. 6. Gastroesophageal reflux disease 7. Hyperlipidemia 8. Obstructive sleep apnea 9. Diabetes type 2 10. Fatty liver disease 11. Polycystic ovarian syndrome 12. Asthma 13. Depressive disorder eczema 14. Kidney stones 15. Chronic leukocytosis 16. Iron deficiency anemia PAST SURGICAL HISTORY: 1. Cholecystectomy 2. Appendectomy 3. section 4. Lithotripsy HOME MEDICATIONS: Reviewed ALLERGIES: Reviewed SOCIAL HISTORY: Denies past tobacco use. FAMILY HISTORY: No family history of ulcerative colitis disease or Crohn's disease. Family history of morbid obesity. No lupus in the family. No reports of stomach or esophageal cancer. REVIEW OF ORGAN SYSTEMS: CONSTITUTIONAL: At height of 5 feet 4 inches, her ideal body weight is 144 pounds. She has lost over 30 pounds. She comes in with 316 pounds. She is 172 pounds overweight. HEENT: Denies any active troubles with hearing. Wears glasses. ENDOCRINE: Has diabetes. Denies hypothyroidism. CARDIOVASCULAR: Past reports of palpitations or heart attacks or chest pain. RESPIRATORY: Has daytime somnolence. Has chronic struct of pulmonary disease. GASTROINTESTINAL: Denies any bright red blood per rectum. Has gastroesophageal reflux disease. MUSCULOSKELETAL: Has lower back pain and joint pain. Has osteoarthritis of the knees. NEURO: No headaches. Past seizure disorders. PSYCH: Has depression. No suicidal ideation. RHEUMATOLOGIC: No lupus. No rheumatoid arthritis. HEMATOLOGIC: Denies any abnormal bleeding or bruising. No personal history of DVTs. SKIN: Has rash. No skin cancer. PHYSICAL EXAM: VITAL SIGNS: Height 5 foot 4 inches, weight 316 pounds. BMI 54.2 GENERAL: Well-developed in no acute distress. HEENT: No scleral icterus. Extraocular movements grossly intact. Hears conversational speech. No nasal drainage. NECK: Supple without lymphadenopathy. CHEST: Nonlabored respirations with equal bilateral excursions. CARDIOVASCULAR: Regular rate and regular rhythm. Distal 2+ pulses. ABDOMEN: Obese, soft, nontender, nondistended. MUSCULOSKELETAL: No clubbing, cyanosis. NEURO: No focal or lateralizing signs. Cranial nerves 2 through 12 grossly within normal limits. PSYCH: Appropriate affect. Alert and oriented to person, place and time. SKIN: Good skin turgor. Well perfused. ASSESSMENT: 1. Morbid obesity due to excess calories 2. Body mass index of 54.2 3. Osteoarthritis of the knees. 4. Osteoarthritis of the lower back. 5. Hypertensive heart disease. 6. Gastroesophageal reflux disease 7. Hyperlipidemia 8. Obstructive sleep apnea 9. Diabetes type 2 10. Fatty liver disease 11. Polycystic ovarian syndrome 12. Asthma 13. Depressive disorder eczema 14. Kidney stones 15. Chronic leukocytosis 16. Iron deficiency anemia PLAN: 1. Bariatric options between a sleeve, band and a Arcelia-en-Y gastric bypass were reviewed in detail. The patient elected for a gastric bypass. Robotic assisted approach described. 2. The [place] [facility] Data was also reviewed with benefits and risks as described. 3. An 8 page second-generation bariatric consent form was reviewed in detail including potential of bleeding, infection, leaks, adequate weight loss, nutritional deficiencies which the patient demonstrated understanding of the risks. 4. A 2 week high-protein low caloric 800 kcal diet described to address hepatomegaly. 5. Preoperative labs including complete metabolic panel and CBC with type and screen recommended. 6. DVT prophylaxis per [place] [facility]. 7. Antibiotic prophylaxis. 8. Inpatient hospitalization anticipated for more than 2 nights. 9. All questions and concerns were addressed with the patient. 10. She is at elevated risk for perioperative complications secondary to pre- existing diabetes type 2, obstructive sleep apnea 11. Overall, patient has expressed understanding of bariatric care including postoperative diet and commitment of lifestyle. Patient should benefit from surgical intervention for correction of her morbid obesity. 12. Due to patient's history of multiple pelvic surgeries, risk of adhesions were identified. Options for lysis of adhesions with return for gastric bypass described versus sleeve gastrectomy. Patient opted for sleeve gastrectomy in the presence of severe pelvic adhesions. 13. Repeat CBC due to chronic leukocytosis Past Medical History Past Medical History: Asthma, Diabetes Mellitus, GERD/Reflux, Hypertension, Skin Disorder Additional Past Medical History / Comment(s): PCOS, eczema, prediabetes, hx kidney stones. History of Any Multi-Drug Resistant Organisms: None Reported Past Surgical History: Appendectomy, Section, Cholecystectomy Additional Past Surgical History / Comment(s): Lithotripsy. Past Anesthesia/Blood Transfusion Reactions: No Reported Reaction Additional Past Anesthesia/Blood Transfusion Reaction / Comment(s): No hx blood transfusion. Smoking Status: Never smoker - Past Family History Mother Family Medical History: Hypertension, Seizure Disorder Additional Family Medical History / Comment(s): Grand Mal Seizures, well controlled. Father Family Medical History: Diabetes Mellitus, Hyperlipidemia, Hypertension Medications and Allergies Home Medications Medication Instructions Recorded Confirmed Type metFORMIN HCL [Glucophage] 500 mg PO BID 07/29/15 12/01/24 History Cholecalciferol [Vitamin D3 (25 25 mcg PO DAILY 07/27/24 12/01/24 History Mcg = 1000 Iu)] Ferrous Sulfate [Iron (65 MG 325 mg PO DAILY 07/27/24 12/01/24 History Elemental)] Multivitamins, Thera [Multivitamin 1 tab PO DAILY 07/27/24 12/01/24 History (formulary)] Losartan Potassium 100 mg PO QAM 08/27/24 12/01/24 History amLODIPine [Norvasc] 10 mg PO QAM 08/27/24 12/01/24 History Albuterol Inhaler [Ventolin Hfa 2 puff INHALATION Q6H PRN #1 each 09/01/24 12/01/24 Rx Inhaler] Budesonide-Formot 160-4.5 Mcg 2 puff INHALATION RT-BID PRN 09/16/24 12/01/24 History [Symbicort 160-4.5 Mcg Inhaler] Furosemide [Lasix] 20 mg PO QAM 12/01/24 12/01/24 History Potassium Chloride [Klor-Con 10 ER] 10 meq PO QAM 12/01/24 12/01/24 History Allergies Allergy/AdvReac Type Severity Reaction Status Date / Time No Known Allergies Allergy Verified 12/06/24 07:19 Surgical - Exam Vital Signs Temp Pulse Resp BP Pulse Ox 98.1 F 86 16 145/90 98 12/06/24 07:29 12/06/24 07:29 12/06/24 07:29 12/06/24 07:29 12/06/24 07:29
[2024-12-06] MEDS: ENOXAPARIN 30 MG/0.3 ML SYRINGE SQ STA (08:37)
[2024-12-06] MEDS: MIDAZOLAM 2 MG/2 ML VIAL IV ONE (08:37)
[2024-12-06] MEDS ORDERED: MIDAZOLAM 2 MG/2 ML VIAL ONE (09:08)
[2024-12-06] MEDS ORDERED: ROCURONIUM 10 MG/ML (5 ML VIAL) IV ONE (09:08)
[2024-12-06] MEDS ORDERED: KETAMINE HCL IN 0.9 % NACL 50 MG/5 ML SYRINGE ONE (09:08)
[2024-12-06] MEDS ORDERED: PROPOFOL 10 MG/ML 20 ML VIAL IV ONE (09:08)
[2024-12-06] MEDS ORDERED: NEOSTIGMINE 1 MG/ML 10 ML VIAL ONE (09:08)
[2024-12-06] MEDS ORDERED: SUCCINYLCHOLINE CHLORIDE 200 MG/10 ML VIAL IV ONE (09:08)
[2024-12-06] MEDS ORDERED: HYDROmorphone (PF) 1 MG/ML ONE (09:08)
[2024-12-06] MEDS ORDERED: GLYCOPYRROLATE 0.2 MG/ML 2 ML VIAL ONE (09:08)
[2024-12-06] MEDS ORDERED: fentaNYL (PF) 50 MCG/ML 2 ML AMP ONE (09:08)
[2024-12-06] MEDS ORDERED: LIDOCAINE 1% INJ 10MG/ML (20 ML MDV) ONE (09:08)
[2024-12-06] MEDS: ceFAZolin 3 GM in SODIUM CHLORIDE 0.9% 100 ML IVPB PRN (09:13)
[2024-12-06] MEDS: LIDOCAINE 1%-EPI 1:100,000 20 ML VIAL SQ ONE (09:37)
[2024-12-06] MEDS: LACTATED RINGERS 1,000 ML IV ONE (09:59)
[2024-12-06] MEDS ORDERED: HYDROmorphone 1 MG/ML 1 ML SYRINGE IVP PRN (11:28)
[2024-12-06] MEDS ORDERED: NALOXONE 0.4 MG/ML 1 ML VIAL IV PRN ×2 (11:28→11:33)
[2024-12-06] MEDS ORDERED: ALBUTEROL NEBULIZED 2.5 MG/3 ML INHALATION PRN (11:34)
[2024-12-06] MEDS ORDERED: DEXTROSE 50% SYRINGE 50 ML IVP PRN ×2 (11:34)
--- NOTE | 2024-12-06 11:44 | P.OP ---
Date of Procedure: 12/06/24 Description of Procedure: SURGEON: KELLIE GARRETT MD PREOPERATIVE DIAGNOSES: 1. Morbid obesity due to excess calories 2. Body mass index of 54.2 3. Osteoarthritis of the knees. 4. Osteoarthritis of the lower back. 5. Hypertensive heart disease. 6. Gastroesophageal reflux disease 7. Hyperlipidemia 8. Obstructive sleep apnea 9. Diabetes type 2 10. Fatty liver disease 11. Polycystic ovarian syndrome 12. Asthma 13. Depressive disorder eczema 14. Kidney stones 15. Chronic leukocytosis 16. Iron deficiency anemia POSTOPERATIVE DIAGNOSES: 1. Morbid obesity due to excess calories 2. Body mass index of 54.2 3. Osteoarthritis of the knees. 4. Osteoarthritis of the lower back. 5. Hypertensive heart disease. 6. Gastroesophageal reflux disease 7. Hyperlipidemia 8. Obstructive sleep apnea 9. Diabetes type 2 10. Fatty liver disease 11. Polycystic ovarian syndrome 12. Asthma 13. Depressive disorder eczema 14. Kidney stones 15. Chronic leukocytosis 16. Iron deficiency anemia 17. Hepatomegaly 18. Severe pelvic adhesions 19. Liver cirrhosis OPERATION: 1. Robotic assisted daVinci Xi laparoscopic gastric bypass ABORTED for sleeve gastrectomy with 40-Indonesian bougie, multiport. 2. Intraoperative esophagogastroduodenoscopy. ANESTHESIA: Gen. local anesthetic ESTIMATED BLOOD LOSS: 5 mL SPECIMENS REMOVED: Sleeve gastrectomy COMPLICATIONS: None. FINDINGS: 1. Negative intraoperative esophagogastrojejunoscopy leak test. 2. No large hiatus hernia. 3. Total of 7 staplers used including 7 - 60 mm: 1-green robot and 6 blue staple loads used to create the gastric sleeve. 4. Sleeve gastrectomy 32 x 6 cm 5. Severe pelvic adhesions identified with high risk of bowel obstruction with gastric bypass therefore procedure deferred to sleeve gastrectomy per prior conversation with patient INDICATIONS: Yelitza Landeros is a 39-year-old female who comes with lifelong morbid obesity. As result of morbid obesity, she has developed diabetes type 2, hypertensive heart disease, obstructive sleep apnea, hyperlipidemia, osteoarthritis of the hips and knees. She has completed medical supervised weight loss. She completed medical including cardiac assessment. She has completed psychological risk assessment. All surgical options were reviewed. S he elected for gastric bypass. At height of 5 feet 4 inches, her ideal body weight is 144 pounds. She has lost over 30 pounds. She comes in with 316 pounds. She is 172 pounds overweight. All surgical options for morbid obesity had been described using the [place] [facility] collaborative comorbidity resolution including complication risk score. A second-generation bariatric consent form was described in detail including the possibility of protein malnutrition, leaks, gastric stricture, venous thrombosis, gastroesophageal reflux disease, need for further surgery for which he demonstrated understanding. Benefits and risks of the procedure were described at length. Informed consent was obtained. DESCRIPTION: The patient was brought into the operating room theater. Preoperatively he had received Lovenox subcutaneously for DVT prophylaxis. Additionally he had Peridex oral solution as an oral decontaminant. After general induction, the abdomen was prepped and draped in standard sterile fashion. An Ioban draping was placed along the abdomen. No cavazos catheter was placed. A robotic da Nate Xi system was prepped and primed. At 15 cm from the xiphoid, proposed port sites were marked with indelible marker along the anterior axillary line bilaterally, mid axillary line bilaterally with each ports were marked 10 to 15 cm from each other. The itinerant teacher assistant port was marked along the left lateral abdominal wall. The robotic stapler port was marked for the right midclavicular line. A 5 mm 0 degrees laparoscopic trocar entry was performed along the left upper quadrant. The abdomen was insufflated to 15 mmHg pressure he tolerated well. Diagnostic laparoscopy demonstrated no injury to bowel, viscera, or mesentery. The liver surface was remarkable for fatty liver disease, hepatomegaly and early micronodular liver cirrhosis. No injury had occurred to the small bowel or viscera. Along the hiatus no large hiatal hernia was found. Severe pelvic adhesions from prior section was identified demonstrating high risk for bowel obstructions with gastric bypass, as a result, procedure deferred to gastric sleeve. A 8 mm port was placed along the right upper abdominal wall after exchanging the 5 mm port. A separate 8 mm port was placed along the left lateral abdominal wall. Please note that the ports were placed at least 20 cm away from the target anatomy. Care was taken to check each robotic arms were safely away from collision with the bed or the patient. At the epigastrium, a medium sized Garfield liver retractor was placed under direct visualization with the Iron Claims Coordinator placed under the right shoulder of the patient. Next, 12-mm robot stapler port was placed along the right upper quadrant. The camera 8-mm port was maintained along the epigastrium. The patient was repositioned in reverse Trendelenburg position at 25-degrees after lowering the bed. The robot was docked along the left side of the patient. Using a grasper for arm 4, a veseel sealer for arm 3, including grasper for arm 1, the robotic system was docked and primed as described. Instruments were interchanged by the itinerant teacher assistant for stapler loads. The camera was placed at 30-degrees down. I had sat at the console. The pylorus was identified and 6 cm proximally along the greater curvature of the stomach, the short gastrics were mobilized upwards to the angle of His using a vessel sealer. Hemostasis was excellent during this portion of the procedure. Next, the upper pole of the stomach was adherent to the left taisha, which was gently dissected free using atraumatic grasper. The nursing technician support engineer placed a 40-Indonesian blunted tip bougie into the stomach. Robotic stapler 1- green and 6-blue loads 60 mm x 7 were used to create the sleeve. Initial firing was across the antrum of the stomach towards the angle of His. The staple line was completely hemostatic and linear without corkscrewing. Hemostasis was excellent. The space from the angularis incisura of the sleeve was approximately 4 cm. I then went to the head of the bed to perform the intraoperative esophagogastroduodenoscopy leak test. The upper pole of the stomach was bathed using normal saline solution. The scope was withdrawn with careful inspection along the staple line for which no leaks were found along the entire length. Additionally, the sleeve was completely hemostatic without any encroachment along the angularis incisura. Its topology was a soft "J". No stricture was encountered upon placement of the scope. The GI tract was desufflated. The patient tolerated this portion of the procedure well. The scope was completely withdrawn. The robot was undocked. I then rescrubbed into case, whereby the irrigation fluid was aspirated from the abdominal cavity. Tisseel fibrin sealant was placed along the staple length. Once dried the Garfield liver retractor was removed. Attention was now brought to removal of the specimen. The distal end of the sleeve gastrectomy specimen was brought out through the 12 mm port at the left upper quadrant. The specimen was gently removed en total, corresponding to 32 cm x 6 cm sleeve gastrectomy specimen. No contamination had occurred during this process. All instruments and pneumoperitoneum including irrigation fluid was removed from the abdominal cavity. The 12 mm port site was irrigated with warm normal saline solution and diluted hydron peroxide. The 12-mm port site was reapproximated using 0 Vicryl and Lamberto-Heather of the left upper quadrant. The final incisions were closed using subcuticular interrupted suture of 4-0 Monocryl. Dermabond was applied to the skin once the skin had been cleansed. OptiFoam dressing was placed along the stomach extraction site. Abdominal binder was placed At the end of the procedure, needle, sponge, and instrument count was verified correct by the information technology technician. The patient was taken to the postanesthesia care unit in stable condition. The patient had tolerated the procedure well. Intraoperative films and findings were reviewed with the patient's family.
[2024-12-06 12:38] LABS: Glucose,Whole Blood 172 mg/dL (70-110)
[2024-12-06] MEDS: HYDROmorphone 0.5 MG/0.5 ML SYRINGE IVP PRN (12:43)
[2024-12-06] MEDS: ONDANSETRON 4 MG/2 ML VIAL IVP SCH (14:46)
[2024-12-06 16:03] LABS: Glucose,Whole Blood 138 mg/dL (70-110)
[2024-12-06] MEDS: DEXAMETHASONE SOD PHOSPHATE 4 MG/ML 1 ML VIAL IVP SCH (17:57)
[2024-12-06] MEDS: HYDROmorphone 0.5 MG/0.5 ML SYRINGE IM STA (17:57)
[2024-12-06] MEDS: SODIUM CHLORIDE 0.9% 1,000 ML IV SCH (17:57)
[2024-12-06] MEDS: ALBUTEROL NEBULIZED 2.5 MG/3 ML INHALATION SCH (18:06)
[2024-12-06] MEDS: ACETAMINOPHEN IV (For NPO) 1,000 MG in EMPTY BAG 1 BAG IVPB SCH (18:12)
[2024-12-06] MEDS: DEXAMETHASONE SOD PHOSPHATE 10 MG/ML 1 ML VIAL IVP ONE (18:14)
[2024-12-06] MEDS: HYOSCYAMINE ORAL DROPS 1.875 MG/15 ML BOTTLE PO SCH (19:12)
[2024-12-06] MEDS: MAGNESIUM SULFATE-D5W PMX 1 GM in DEXTROSE/WATER 1 100ML.BAG IVPB SCH (19:13)
[2024-12-06] MEDS: SYMBICORT 160-4.5 MCG INHALER INHALATION SCH (20:18)
[2024-12-06 20:33] LABS: Glucose,Whole Blood 141 mg/dL (70-110)
[2024-12-06] MEDS: fentaNYL PCA 500 MCG/50 ML BAG IV SCH (22:02)
[2024-12-06] MEDS: INSULIN LISPRO (HumaLOG) 100 UNIT/ML 10 mL VL SQ SCH (22:29)
[2024-12-06] MEDS: ceFAZolin 3 GM in SODIUM CHLORIDE 0.9% 100 ML IVPB SCH (22:33)
[2024-12-06] MEDS: 0.9% NACL WITH KCL 20 MEQ/L 1,000 ML IV SCH (22:54)
[2024-12-06] MEDS: PANTOPRAZOLE 40 MG/10 ML VIAL IV SCH (22:54)
[2024-12-06] MEDS: SIMETHICONE 40 MG/0.6 ML DROPS 2,000 MG/30 ML BOTTLE PO SCH (23:43)
[2024-12-07 06:13] LABS: Glucose,Whole Blood 124 mg/dL (70-110)
[2024-12-07] MEDS: 0.9% NACL WITH KCL 20 MEQ/L 1,000 ML IV SCH (06:35)
[2024-12-07] MEDS: ceFAZolin 3 GM in SODIUM CHLORIDE 0.9% 100 ML IVPB SCH (07:09)
[2024-12-07 08:07] LABS: Basophils # (A) 0.03 X 10*3/uL (0.00-0.10); Basophils % (A) 0.2 %; Eosinophils # (A) 0 X 10*3/uL (0.04-0.35); Eosinophils % (A) 0 %; HCT 40.9 % (37.2-46.3); HGB 12.9 g/dL (12.0-15.0); Lymphocytes # (A) 0.95 X 10*3/uL (0.90-5.00); Lymphocytes % (A) 4.9 %; MCHC 31.5 g/dL (32.0-37.0); MCV 88.7 FL (80.0-97.0); Mean Platelet Volume 9.1 FL (9.5-12.2); Monocytes # (A) 0.23 X 10*3/uL (0.20-1.00); Monocytes % (A) 1.2 %; NRBC Per 100 WBC 0 X 10*3/uL (0.00-0.01); Neutrophils # (A) 18.05 X 10*3/uL (1.80-7.70); Neutrophils % (A) 92.2 %; Platelet Count 418 X 10*3/uL (140-440); RBC 4.61 X 10*6/uL (4.10-5.20); RDW 13.2 % (11.5-14.5); WBC 19.55 X 10*3/uL (4.50-10.00)
[2024-12-07 08:29] LABS: Blood Urea Nitrogen 6.5 mg/dL (9.0-27.0); Calcium 8.9 mg/dL (8.7-10.3); Carbon Dioxide 17.2 mmol/L (21.6-31.8); Chloride 106 mmol/L (96-109); Magnesium 2.5 mg/dL (1.5-2.4); Phosphorus 2.3 mg/dL (2.4-5.1); Potassium 4.7 mmol/L (3.5-5.5); Sodium 139 mmol/L (135-145)
[2024-12-07] MEDS: amLODIPine 10 MG TAB PO SCH (08:55)
[2024-12-07] MEDS: ENOXAPARIN 40 MG/0.4 ML SYRINGE SQ SCH (08:56)
[2024-12-07 11:47] LABS: Glucose,Whole Blood 142 mg/dL (70-110)
[2024-12-07] MEDS: SODIUM CHLORIDE 0.9% 1,000 ML IV SCH (12:37)
[2024-12-07 14:16] VITALS: BMI 54.2
--- NOTE | 2024-12-07 14:58 | P.PN ---
Subjective Progress Note Date: 12/07/24 SURGICAL PROGRESS NOTE CHIEF COMPLAINT: Morbid obesity HISTORY OF PRESENT ILLNESS: Patient is postop day #1 status post robotic assisted da Nate laparoscopic gastric bypass aborted for sleeve gastrectomy. Patient is still requiring KNITTING MACHINE OPERATOR AUTOMATIC pump to help with pain control. She has had some nausea. She has only had a few ounces of liquids throughout the day orally. She has been tachycardiac. She received 2 fluid boluses and heart rate is down to 80. WBC is 19. PHYSICAL EXAM: VITAL SIGNS: Reviewed. GENERAL: Well-developed in no acute distress. HEENT: No sclera icterus. Extraocular movements grossly intact. Moist buccal mucosa. Head is atraumatic, normocephalic. ABDOMEN: Soft. Nondistended. Obese. Tender at incision sites. Incision sites are clean dry and intact. Abdominal binder in place. NEUROLOGIC: Alert and oriented. Cranial nerves II through XII grossly intact. ASSESSMENT: 1. Morbid obesity due to excess calories 2. Body mass index of 54.2 3. Osteoarthritis of the knees. 4. Osteoarthritis of the lower back. 5. Hypertensive heart disease. 6. Gastroesophageal reflux disease 7. Hyperlipidemia 8. Obstructive sleep apnea 9. Diabetes type 2 10. Fatty liver disease 11. Polycystic ovarian syndrome 12. Asthma 13. Depressive disorder eczema 14. Kidney stones 15. Chronic leukocytosis 16. Iron deficiency anemia 17. Hepatomegaly 18. Severe pelvic adhesions 19. Liver cirrhosis PLAN: - Encourage patient to drink her clear liquids - Continue IV fluids - Continue pain management - Encourage patient to ambulate - Continue antiemetics - GI prophylaxis Protonix and DVT prophylaxis Lovenox Physician Derrick Hand note has been reviewed by physician. Signing provider agrees with the documented findings, assessment, and plan of care. Please see additional documentation below per MD. CHIEF COMPLAINT: HISTORY OF PRESENT ILLNESS: The patient is a 39-year-old female status post sleeve gastrectomy, 12/06/2024. She reports nausea with movement. She does not have a scopolamine patch. She is ambulating. She reports minimal oral intake. This evening after reassessment, she is just started to tolerate medicine cup 1 ounce every 15 minutes. She is overall motivated. She reports having a difficult night due to poor pain control as her bed status was not arranged until very late last night. ROS: No fevers or chills. No new chest pain. No productive sputum PHYSICAL EXAM: VITAL SIGNS: Reviewed CONSTITUTIONAL: Well developed and in no acute distress. EYES: Conjuctivae without sclera icterus. Extraocular movements grossly intact. HEAD, EARS, NOSE, THROAT: Moist buccal mucosa. Head is atraumatic, normocephalic. Hears conversational speech. No nasal drainage. RESPIRATORY: Non-labored respirations and equal bilateral excursions. CARDIOVASCULAR: Palpable 2+ radial pulses. ABDOMEN: Protuberant. Incision intact. Abdominal binder present. MUSCULOSKELETAL: No gross deformity of the lower extremities noted. No clubbing. No cyanosis. SKIN: Good skin turgor. Well perfused. NEUROLOGIC: Cranial nerves II through XII grossly intact. No focal or lateralizing signs. PSYCH: Appropriate affect. Alert and oriented to person, place and time. CLINICAL LABS: Reviewed. WBC elevated due to Decadron and postsurgical status. ASSESSMENT: 1. Morbid obesity to excess calories. 2. Status post sleeve gastrectomy PLAN: 1. Will obtain scopolamine patch to address nausea 2. As she has inadequate fluid intake, continue hospitalization with emphasis on oral intake of fluids to prevent dehydration upon discharge 3. Additional 2 L bolus given earlier today improved her heart rate. 4. Reschedule outpatient swallow study for 1 week Dictation was produced using [employer] dictation software. Please excuse any grammatical, word or spelling errors. Objective - Vital Signs Vital signs: Vital Signs Temp 97.7 F 12/07/24 14:12 Pulse 80 12/07/24 14:12 Resp 17 12/07/24 14:12 BP 131/68 12/07/24 14:12 Pulse Ox 90 L 12/07/24 14:12 FiO2 Intake & Output 12/06/24 12/07/24 12/07/24 18:59 06:59 18:59 Intake Total 2400 Output Total 5 Balance 2395 Weight 143.3 kg 143.3 kg 143.3 kg Intake: IV 2400 Output: Estimated Blood Loss 5 Other: # Voids 2 4 # Bowel Movements 0 - Labs CBC & Chem 7: 12/07/24 05:30 12/07/24 05:54 Labs: Abnormal Lab Results - Last 24 Hours (Table) 12/06/24 12/06/24 12/07/24 Range/Units 16:01 20:32 05:30 WBC 19.55 H (4.50-10.00) X 10*3/uL MCHC 31.5 L (32.0-37.0) g/dL MPV 9.1 L (9.5-12.2) FL Immature Gran # 0.29 H (0.00-0.04) X 10*3/uL Neutrophils # 18.05 H (1.80-7.70) X 10*3/uL Eosinophils # 0 L (0.04-0.35) X 10*3/uL Carbon Dioxide (21.6-31.8) mmol/L Anion Gap (4.00-12.00) mmol/L BUN (9.0-27.0) mg/dL POC Glucose (mg/dL) 138 H 141 H (70-110) mg/dL Hemoglobin A1c (<=6.0) % Phosphorus (2.4-5.1) mg/dL Magnesium (1.5-2.4) mg/dL 12/07/24 12/07/24 12/07/24 Range/Units 05:54 05:54 06:11 WBC (4.50-10.00) X 10*3/uL MCHC (32.0-37.0) g/dL MPV (9.5-12.2) FL Immature Gran # (0.00-0.04) X 10*3/uL Neutrophils # (1.80-7.70) X 10*3/uL Eosinophils # (0.04-0.35) X 10*3/uL Carbon Dioxide 17.2 L (21.6-31.8) mmol/L Anion Gap 15.80 H (4.00-12.00) mmol/L BUN 6.5 L (9.0-27.0) mg/dL POC Glucose (mg/dL) 124 H (70-110) mg/dL Hemoglobin A1c 7.3 H (<=6.0) % Phosphorus 2.3 L (2.4-5.1) mg/dL Magnesium 2.5 H (1.5-2.4) mg/dL 12/07/24 Range/Units 11:44 WBC (4.50-10.00) X 10*3/uL MCHC (32.0-37.0) g/dL MPV (9.5-12.2) FL Immature Gran # (0.00-0.04) X 10*3/uL Neutrophils # (1.80-7.70) X 10*3/uL Eosinophils # (0.04-0.35) X 10*3/uL Carbon Dioxide (21.6-31.8) mmol/L Anion Gap (4.00-12.00) mmol/L BUN (9.0-27.0) mg/dL POC Glucose (mg/dL) 142 H (70-110) mg/dL Hemoglobin A1c (<=6.0) % Phosphorus (2.4-5.1) mg/dL Magnesium (1.5-2.4) mg/dL
[2024-12-07 17:09] LABS: Glucose,Whole Blood 142 mg/dL (70-110)
[2024-12-07 20:10] LABS: Glucose,Whole Blood 142 mg/dL (70-110)
[2024-12-07] MEDS: SCOPOLAMINE 1 MG/72 HR PATCH TRANSDERM STA (20:58)
[2024-12-08 01:42] VITALS: RESP 16
[2024-12-08 06:33] LABS: Glucose,Whole Blood 142 mg/dL (70-110)
[2024-12-08 08:37] LABS: African American GFR (CKD) >90 (>60 ml/min/1.73 sqM); Anion Gap 11 mmol/L; Blood Urea Nitrogen 9 mg/dL (7-17); Calcium 9.1 mg/dL (8.4-10.2); Carbon Dioxide 19 mmol/L (22-30); Chloride 111 mmol/L (98-107); Glucose 129 mg/dL (74-99); Non-African American GFR(CKD) >90 (>60 ml/min/1.73 sqM); Potassium 4.4 mmol/L (3.5-5.1); Sodium 141 mmol/L (137-145)
--- NOTE | 2024-12-08 10:02 | P.PN ---
Subjective Progress Note Date: 12/08/24 CHIEF COMPLAINT: Morbid obesity HISTORY OF PRESENT ILLNESS: The patient is a 39-year-old female status post sleeve gastrectomy, 12/06/2024. She is tolerating fluids. Her pain is well- controlled. She is using ice along incisions. ROS: No fevers or chills. No new chest pain. No productive sputum PHYSICAL EXAM: VITAL SIGNS: Reviewed CONSTITUTIONAL: Well developed and in no acute distress. EYES: Conjuctivae without sclera icterus. Extraocular movements grossly intact. HEAD, EARS, NOSE, THROAT: Moist buccal mucosa. Head is atraumatic, normocephalic. Hears conversational speech. No nasal drainage. RESPIRATORY: Non-labored respirations and equal bilateral excursions. CARDIOVASCULAR: Palpable 2+ radial pulses. ABDOMEN: Protuberant. Incision intact. Abdominal binder present. MUSCULOSKELETAL: No gross deformity of the lower extremities noted. No clubbing. No cyanosis. SKIN: Good skin turgor. Well perfused. NEUROLOGIC: Cranial nerves II through XII grossly intact. No focal or lateralizing signs. PSYCH: Appropriate affect. Alert and oriented to person, place and time. CLINICAL LABS: Reviewed. WBC pending ASSESSMENT: 1. Morbid obesity to excess calories. 2. Status post sleeve gastrectomy PLAN: 1. Stable for discharge 2. IV fluid hydration as outpatient 3. Esophagram for 1 week outpatient Dictation was produced using [employer] dictation software. Please excuse any grammatical, word or spelling errors. Objective - Vital Signs Vital signs: Vital Signs Temp 98.0 F 12/08/24 07:21 Pulse 87 12/08/24 07:21 Resp 16 12/08/24 07:21 BP 146/76 12/08/24 07:21 Pulse Ox 92 L 12/08/24 07:21 FiO2 Intake & Output 12/07/24 12/08/24 12/08/24 18:59 06:59 18:59 Intake Total 500 Balance 500 Weight 143.3 kg Intake: Oral 500 Other: Voiding Method Toilet # Voids 9 - Labs CBC & Chem 7: 12/07/24 05:30 12/08/24 07:28 Labs: Abnormal Lab Results - Last 24 Hours (Table) 12/07/24 12/07/24 12/07/24 Range/Units 11:44 16:55 20:08 Chloride (98-107) mmol/L Carbon Dioxide (22-30) mmol/L Glucose (74-99) mg/dL POC Glucose (mg/dL) 142 H 142 H 142 H (70-110) mg/dL 12/08/24 12/08/24 Range/Units 06:32 07:28 Chloride 111 H (98-107) mmol/L Carbon Dioxide 19 L (22-30) mmol/L Glucose 129 H (74-99) mg/dL POC Glucose (mg/dL) 142 H (70-110) mg/dL
--- NOTE | 2024-12-08 10:12 | P.DS ---
Providers Date of admission: 12/06/24 06:57 Expected date of discharge: 12/08/24 Attending physician: Larisa Hernandez Consults: 12/06/24 07:58 Consult Physician Routine Consulting Provider: [facility] Consult Reason/Comments: TIVA and abdominal wall block Do you want consulting provider notified?: Yes Primary care physician: Stated None Hospital Course: POSTOPERATIVE DIAGNOSES: 1. Morbid obesity due to excess calories 2. Body mass index of 54.2 3. Osteoarthritis of the knees. 4. Osteoarthritis of the lower back. 5. Hypertensive heart disease. 6. Gastroesophageal reflux disease 7. Hyperlipidemia 8. Obstructive sleep apnea 9. Diabetes type 2 10. Fatty liver disease 11. Polycystic ovarian syndrome 12. Asthma with chronic struct of pulmonary disease 13. Depressive disorder eczema 14. Kidney stones 15. Chronic leukocytosis 16. Iron deficiency anemia 17. Hepatomegaly 18. Severe pelvic adhesions 19. Liver cirrhosis COURSE: The patient is a 39-year-old female who presented with morbid obesity. She has comorbidities including struct of sleep apnea, osteoarthritis, diabetes type 2, hypertension. During procedure, patient was found to have liver cirrhosis with hepatomegaly as well as moderate pelvic adhesions prohibiting gastric bypass. Sleeve gastrectomy was performed for morbid obesity. Postoperatively, patient was treated for moderate to severe dehydration requiring hospitalization. Nausea resolved. Medication reconciliation was performed. Close outpatient follow-up described Procedures: OPERATION: 1. Robotic assisted daVinci Xi laparoscopic gastric bypass ABORTED for sleeve gastrectomy with 40-Nepali bougie, multiport. 2. Intraoperative esophagogastroduodenoscopy. ANESTHESIA: Gen. local anesthetic ESTIMATED BLOOD LOSS: 5 mL SPECIMENS REMOVED: Sleeve gastrectomy COMPLICATIONS: None. FINDINGS: 1. Negative intraoperative esophagogastrojejunoscopy leak test. 2. No large hiatus hernia. 3. Total of 7 staplers used including 7 - 60 mm: 1-green robot and 6 blue staple loads used to create the gastric sleeve. 4. Sleeve gastrectomy 32 x 6 cm 5. Severe pelvic adhesions identified with high risk of bowel obstruction with gastric bypass therefore procedure deferred to sleeve gastrectomy per prior conversation with patient Patient Condition at Discharge: Stable Plan - Discharge Summary Discharge Rx Participant: Yes New Discharge Prescriptions: New Omeprazole [PriLOSEC] 40 mg PO DAILY #30 cap Acetaminophen Tab [Tylenol Tab] 1,000 mg PO Q6HR PRN #30 tablet PRN Reason: Pain bisacodyL [Dulcolax] 5 mg PO DAILY PRN #10 tab PRN Reason: Constipation Simethicone 40 mg/0.6 ml Drops [Mylicon Drops] 40 mg PO PCHS PRN #30 ml PRN Reason: Gas Ondansetron Odt [Zofran Odt] 4 mg PO Q8HR PRN #9 tab PRN Reason: Nausea Continue Albuterol Inhaler [Ventolin Hfa Inhaler] 2 puff INHALATION Q6H PRN #1 each PRN Reason: Shortness Of Breath Budesonide-Formot 160-4.5 Mcg [Symbicort 160-4.5 Mcg Inhaler] 2 puff INHALATION RT-BID PRN PRN Reason: Shortness Of Breath amLODIPine [Norvasc] 10 mg PO QAM Losartan Potassium 100 mg PO QAM Discontinued metFORMIN HCL [Glucophage] 500 mg PO BID Ferrous Sulfate [Iron (65 MG Elemental)] 325 mg PO DAILY Multivitamins, Thera [Multivitamin (formulary)] 1 tab PO DAILY Potassium Chloride [Klor-Con 10 ER] 10 meq PO QAM Cholecalciferol [Vitamin D3 (25 Mcg = 1000 Iu)] 25 mcg PO DAILY Furosemide [Lasix] 20 mg PO QAM Discharge Medication List Losartan Potassium 100 mg PO QAM 08/27/24 [History] amLODIPine [Norvasc] 10 mg PO QAM 08/27/24 [History] Albuterol Inhaler [Ventolin Hfa Inhaler] 2 puff INHALATION Q6H PRN #1 each 09/01/24 [Rx] Budesonide-Formot 160-4.5 Mcg [Symbicort 160-4.5 Mcg Inhaler] 2 puff INHALATION RT-BID PRN 09/16/24 [History] Acetaminophen Tab [Tylenol Tab] 1,000 mg PO Q6HR PRN #30 tablet 12/08/24 [Rx] Omeprazole [PriLOSEC] 40 mg PO DAILY #30 cap 12/08/24 [Rx] Ondansetron Odt [Zofran Odt] 4 mg PO Q8HR PRN #9 tab 12/08/24 [Rx] Simethicone 40 mg/0.6 ml Drops [Mylicon Drops] 40 mg PO PCHS PRN #30 ml 12/08/24 [Rx] bisacodyL [Dulcolax] 5 mg PO DAILY PRN #10 tab 12/08/24 [Rx] Follow up [facility]ment(s[facility] [place] [facility] - 12/10/24 9:00 am Patient Instructions/Handouts: Scopolamine (Absorbed through the skin), Nutrition after Bariatric Surgery (GEN), Laparoscopic Sleeve Gastrectomy (DC) Activity/Diet/Wound Care/Special Instructions: DO NOT GO TO ER UNTIL AFTER JANUARY 05. CALL BARIATRIC CENTER FOR ANY ISSUES. Liquid diet only for 2 weeks until December 20 May Shower. No soaking in bath tubs 2 weeks until December 20 Continue to use incentive spirometry to prevent pneumonias. Please continue to ambulate at home to prevent blood clots in legs. Please notify your surgeon if you develop nausea and vomiting including new onset of abdominal pain. No lifting over 4 pounds in 4 weeks, JANUARY 05 Drink 64 oz of fluid daily. Start protein shakes on . Notify bariatric center for temp over 101.0, increased pain, drainage from incisions. No straws or carbonated beverages. Liquid diet only. Sugar content should be less than 6 g to avoid dumping syndrome. Take MOM for constipation. CRUSH, OPEN, OR CUT TABLETS LARGER THAN A SIZE OF A TIC TAC Discharge Disposition: HOME SELF-CARE
[2024-12-08 10:22] LABS: Basophils # (A) 0.05 X 10*3/uL (0.00-0.10); Basophils % (A) 0.3 %; Eosinophils # (A) 0.01 X 10*3/uL (0.04-0.35); Eosinophils % (A) 0.1 %; HCT 40.9 % (37.2-46.3); HGB 12.5 g/dL (12.0-15.0); Lymphocytes % (A) 7.4 %; MCH 27.7 pg (27.0-32.0); MCHC 30.6 g/dL (32.0-37.0); MCV 90.7 FL (80.0-97.0); Mean Platelet Volume 8.8 FL (9.5-12.2); Monocytes # (A) 0.52 X 10*3/uL (0.20-1.00); Monocytes % (A) 3.2 %; NRBC Per 100 WBC 0 X 10*3/uL (0.00-0.01); Neutrophils # (A) 13.99 X 10*3/uL (1.80-7.70); Neutrophils % (A) 85.9 %; Platelet Count 376 X 10*3/uL (140-440); RBC 4.51 X 10*6/uL (4.10-5.20); RDW 13.5 % (11.5-14.5); WBC 16.27 X 10*3/uL (4.50-10.00)
[2024-12-08 11:17] LABS: Glucose,Whole Blood 133 mg/dL (70-110)
[2024-12-08 14:09] VITALS: BP 136/74; PULSE 75; TEMP 98.9
== END 2024-12-08 15:23 | disposition home or self-care (01) | DRG 621 ==
LOC: 2ORMAIN 06:57 → EDSTATUS 08:30 → 4SSUR 17:33
PROVIDERS: ADMIT Surgery Plastic and Reconstructive Surgery; ATTEND Surgery Plastic and Reconstructive Surgery
PROC: 8E0W4CZ Robotic Assisted Procedure of Trunk Region, Percutaneous Endoscopic Approach (ICD-10-PCS; principal; 2024-12-06 08:45)
PROC: 0DB64Z3 Excision of Stomach, Percutaneous Endoscopic Approach, Vertical (ICD-10-PCS; principal; 2024-12-06 08:45)
PROC: 0DJ08ZZ Inspection of Upper Intestinal Tract, Via Natural or Artificial Opening Endoscopic (ICD-10-PCS; principal; 2024-12-06 08:45)
DX: E66.01 Morbid (severe) obesity due to excess calories (principal); K74.60 Unspecified cirrhosis of liver; R16.0 Hepatomegaly, not elsewhere classified; D50.9 Iron deficiency anemia, unspecified; E11.9 Type 2 diabetes mellitus without complications; D72.829 Elevated white blood cell count, unspecified; Z68.43 Body mass index [BMI] 50.0-59.9, adult; J44.89 Other specified chronic obstructive pulmonary disease; I11.9 Hypertensive heart disease without heart failure; F32.A Depression, unspecified; E28.2 Polycystic ovarian syndrome; E78.5 Hyperlipidemia, unspecified; N73.6 Female pelvic peritoneal adhesions (postinfective); M17.0 Bilateral primary osteoarthritis of knee; E86.0 Dehydration; M19.09 Primary osteoarthritis, other specified site; K21.9 Gastro-esophageal reflux disease without esophagitis; G47.33 Obstructive sleep apnea (adult) (pediatric); R00.0 Tachycardia, unspecified; K76.0 Fatty (change of) liver, not elsewhere classified; N20.0 Calculus of kidney; L30.9 Dermatitis, unspecified; M16.0 Bilateral primary osteoarthritis of hip; Z79.51 Long term (current) use of inhaled steroids; Z79.84 Long term (current) use of oral hypoglycemic drugs; Z79.899 Other long term (current) drug therapy
CPT/HCPCS: 80048; 80051; 81025; 82310; 82565; 83036; 83735; 84100; 84520; 85025; 88307

== ENCOUNTER → 2024-12-10 | Outpatient (CLI) | payer BC ==
[2024-12-10 10:07] VITALS: PULSE 91; RESP 16; TEMP 97.9; BMI 53.6
--- NOTE | 2024-12-10 10:09 | P.BASOAP ---
Subjective Progress Note Date: 12/10/24 CHIEF COMPLAINT: Morbid obesity, status post sleeve gastrectomy. HISTORY OF PRESENT ILLNESS: Yelitza Landeros is a 39-year-old female who comes with lifelong morbid obesity. As result of morbid obesity, she has developed diabetes type 2, hypertensive heart disease, obstructive sleep apnea, hyperlipidemia, osteoarthritis of the hips and knees. She is status post sleeve gastrectomy 12/06/2024. She comes in with moderately dark urine and dizziness. She confirms only drinking 21 ounces of fluids today. Pain is tolerable. Mother is at bedside. Urine output is low. At height of 5 feet 4 inches, her ideal body weight is 144 pounds. At the time of her procedure, she came in 316 pounds. She was 172 pounds overweight. Today she comes in 313 pounds. She is lost 3 pounds in 4 days. PHYSICAL EXAM: VITAL SIGNS: Height 5 foot 4 inches, weight 316 pounds. BMI 54.2 GENERAL: Well-developed in no acute distress. HEENT: No scleral icterus. Extraocular movements grossly intact. Hears conversational speech. No nasal drainage. NECK: Supple without lymphadenopathy. CHEST: Nonlabored respirations with equal bilateral excursions. CARDIOVASCULAR: Regular rate and regular rhythm. Distal 2+ pulses. ABDOMEN: Incisions clean dry intact. No infection left upper quadrant incision. MUSCULOSKELETAL: No clubbing, cyanosis. NEURO: No focal or lateralizing signs. Cranial nerves 2 through 12 grossly within normal limits. PSYCH: Appropriate affect. Alert and oriented to person, place and time. SKIN: Good skin turgor. Well perfused. ASSESSMENT: 1. Morbid obesity due to excess calories 2. Body mass index of 54.2 3. Osteoarthritis of the knees. 4. Osteoarthritis of the lower back. 5. Hypertensive heart disease. 6. Gastroesophageal reflux disease 7. Hyperlipidemia 8. Obstructive sleep apnea 9. Diabetes type 2 10. Fatty liver disease 11. Polycystic ovarian syndrome 12. Asthma 13. Depressive disorder eczema 14. Kidney stones 15. Chronic leukocytosis 16. Iron deficiency anemia 17. Dehydration due to inadequate oral intake 18. Oliguria 19. Status post sleeve gastrectomy PLAN: 1. Recommend 2 L normal saline bolus was additional set up in 72 hours. 2. Goal urine output of clear urine described for adequate fluid intake. 3. Outpatient esophagram in 5 days. Objective - Vital Signs Vital signs: Intake & Output 12/09/24 12/10/24 12/10/24 18:59 06:59 18:59 Weight 141.793 kg Assessment/Plan Plan: Date: Initial Weight: 153.314 kg Initial BMI: Current Weight: 141.793 kg Current BMI: Type of Surgery: Total Volume in Band: Previous Volume: Volume Removed: Volume Added: Band Size:
== END ==
LOC: BARWHC3 08:52
PROVIDERS: ATTEND Surgery Plastic and Reconstructive Surgery
DX: E66.01 Morbid (severe) obesity due to excess calories (principal); M17.9 Osteoarthritis of knee, unspecified; M19.90 Unspecified osteoarthritis, unspecified site; I11.9 Hypertensive heart disease without heart failure; K21.9 Gastro-esophageal reflux disease without esophagitis; E78.5 Hyperlipidemia, unspecified; G47.33 Obstructive sleep apnea (adult) (pediatric); E11.9 Type 2 diabetes mellitus without complications; K76.0 Fatty (change of) liver, not elsewhere classified; E28.2 Polycystic ovarian syndrome; J45.909 Unspecified asthma, uncomplicated; F32.9 Major depressive disorder, single episode, unspecified; N20.0 Calculus of kidney; D72.829 Elevated white blood cell count, unspecified; D50.9 Iron deficiency anemia, unspecified; E86.0 Dehydration; R34 Anuria and oliguria; Z98.84 Bariatric surgery status; Z68.43 Body mass index [BMI] 50.0-59.9, adult
CPT/HCPCS: 99211

== ENCOUNTER → 2024-12-15 | Outpatient (CLI) | payer BC ==
[2024-12-15 14:07] VITALS: BP 127/85; PULSE 103; RESP 16; TEMP 91; BMI 51.5
--- NOTE | 2024-12-15 14:43 | P.BASOAP ---
Subjective Progress Note Date: 12/15/24 She is drinking well. Pain controlled. No more nausea. Recommed fluids as needed. Needs swallow study. Use Hydrogen peroxide. She has clear urine. Plan for 80 to 90 grams protein daily. Avoid heartburn. Has scar tissue in pelvis avoiding bypass. Objective - Vital Signs Vital signs: Vital Signs Temp 91 F L 12/15/24 14:03 Pulse 103 H 12/15/24 14:03 Resp 16 12/15/24 14:03 BP 127/85 12/15/24 14:03 Pulse Ox FiO2 Intake & Output 12/14/24 12/15/24 12/15/24 18:59 06:59 18:59 Weight 136.191 kg Assessment/Plan Plan: Date: 12/15/24 Initial Weight: 153.314 kg Initial BMI: 58.0 Current Weight: 136.191 kg Current BMI: 51.5 Type of Surgery: Vertical Sleeve Gastrectomy Total Volume in Band: Previous Volume: Volume Removed: Volume Added: Band Size:
== END ==
LOC: BARWHC3 13:43
PROVIDERS: ATTEND Surgery Plastic and Reconstructive Surgery
DX: E66.01 Morbid (severe) obesity due to excess calories (principal); Z71.3 Dietary counseling and surveillance; Z68.43 Body mass index [BMI] 50.0-59.9, adult
CPT/HCPCS: 97802; 99211

== ENCOUNTER → 2024-12-16 | Outpatient (CLI) | payer BC ==
--- NOTE | 2024-12-16 10:18 | FL ---
SINGLE CONTRAST BARIUM SWALLOW, ESOPHAGRAM: DATE: 12/16/2024 CLINICAL HISTORY: 39-year-old female R13.10, unspecified dysphagia, patient status sleeve gastrectom y one week ago. Rule out leak. TECHNIQUE: Single contrast exam performed with 25 ml [id number] contrast. Total fluoroscopy time 1 minute 18 seconds. Total images: 20 Total DAP: [id number]. FINDINGS: The patient swallowed oral contrast without difficulty or delay. Esophageal peristalsis and motility are within normal limits. There is prompt passage of contrast from the esophagus into the stomach. Postsurgical change of sleeve gastrectomy is demonstrated with a narrow stream of contrast extending to the distal stomach. There is subsequent prompt passage of contrast into the duodenum. There is no evidence of contrast extravasation to suggest leak. No postsurgical free air is seen. IMPRESSION: No evidence of leak or significant obstruction status post sleeve gastrectomy. [facility], , 12/16/2024 10:16 AM
== END | disposition home or self-care (01) ==
LOC: RADFLMAIN 08:42
PROVIDERS: ATTEND Surgery Plastic and Reconstructive Surgery
DX: R13.10 Dysphagia, unspecified (principal)
CPT/HCPCS: 74220; Q9967